=== PATIENT | male | born 1965 | race Caucasian/White ===

== ENCOUNTER → 2025-02-22 22:00 | Outpatient (REF) | payer OTHER, SELFPAY | LOC: DHSLP 22:00 | PROVIDERS: ATTENDING PHYSICIAN Internal Medicine; FAMILY PHYSICIAN Family Medicine | DX: G47.33 Obstructive sleep apnea (adult) (pediatric) (principal) | CPT/HCPCS: 95800 ==

== ENCOUNTER 2025-05-17 22:09 | Inpatient (IN) | payer OTHER, SELFPAY ==
[2025-05-17] VITALS (10 sets, daily range): BP systolic 122–142; BP diastolic 77–92; BMI 31.7
[2025-05-17 19:34] LABS: Hematocrit 47.1 % (39.0-52.0); Hemoglobin 15.9 g/dL (13.0-18.0); Mean Corp Hgb Conc. 33.8 g/dL (33.0-37.0); Mean Corpuscular Volume 88.2 fL (80.0-94.0); Nucleated Red Blood Cells % 0 % (-); Platelet Count 296 10^3/uL (130-400); Red Cell Dist. Width 13.0 % (11.5-14.5)
[2025-05-17 19:57] LABS: ALT (SGPT) 37 U/L (0-50); AST (SGOT) 31 U/L (17-59); Albumin 4.5 g/dl (3.5-5.0); Alkaline Phosphatase 99 U/L (38-126); Blood Urea Nitrogen 19 mg/dl (9-20); Calcium 9.4 mg/dl (8.4-10.2); Carbon Dioxide 26 mmol/L (22-30); Chloride 104 mmol/L (98-107); Glucose 98 mg/dl (70-99); Potassium 4.1 mmol/L (3.5-5.1); Sodium 139 mmol/L (135-145); Total Protein 7.2 g/dl (6.3-8.2); eGFR > 60.00
[2025-05-17 20:10] LABS: Troponin I 2.230 ng/ml
--- NOTE | 2025-05-17 20:24 | ED.GENMED ---
History of Present Illness
<Candi Elliott PA-C - Last Filed: 05/18/25 01:44>
General
Chief Complaint: Chest Pain
Source: patient
Exam Limitations: none
Time Seen by Provider: 05/17/25 20:23
History of Present Illness
History of Present Illness:
60-year-old male with a past medical history of t diabetes on insulin, hypertension, hyperlipidemia, who presents to emergency department today with concerns of intermittent chest pain. Currently he is chest pain-free. Patient reports that has
been going on intermittently for the past month. He reports that pain comes on with emotional stress or physical exertion. The pain is described as being similar to heartburn and relieved with belching. The patient spouse notes that he had
difficulty sleeping months ago and he obtained a sleep Pap machine. A few months back, they had a stress location and she reports that this symptom was worse since ever been, they were walking and he had to take multiple breaks due to chest pain or
shortness of breath. Spouse also mentions increased caffeine intake and increased carbonated soda intake during this period which they thought contributed to symptoms. Patient has no abdominal pain at this time. Patient used [id number]
antacids which has not helped. Patient visited his primary care physician who suggested that the symptoms could be likely gastric in origin and he gave him a referral for a engineer second assistant in [facility]. They got appointments with the
specialists in July and September respectively. He denies any swelling in his legs. He denies any recent long distance travel. He does not smoke. He reports that his cholesterol is very high but he does not take anything for it.
Past History
<Candi Elliott PA-C - Last Filed: 05/18/25 01:44>
Past History
ED Past Medical History: None
ED Past Surgical History: None
Review of Systems
<Candi Elliott PA-C - Last Filed: 05/18/25 01:44>
Review of Systems
All Other Systems: ROS reviewed and negative except as documented in HPI and ROS
Phy Exam
<Candi Elliott PA-C - Last Filed: 05/18/25 01:44>
Physical Exam
Physical Exam:
General: Patient is well appearing and in no acute distress; non-toxic
Skin: Warm and dry, no rashes or lesions
Head: Normocephalic, atraumatic
Eyes: Sclera non-icteric. EOMs intact.
Cardiac: Regular rate and rhythm, no murmurs
Peripheral Vascular: No lower extremity swelling or edema
Pulm: Normal respiratory effort, no wheezes, rales, rhonchi
Abdomen: No abdominal tenderness to palpation
Neuro: CN II-XII intact, no focal neurologic deficits.
Psychiatric: Appropriate mood and affect.
Scores
<Candi Elliott PA-C - Last Filed: 05/18/25 01:44>
Heart Score for Chest Pain Patients
STEMI patient?: No
History: Highly Suspicious
ECG: Nonspecific Repolarization
Age: >45 - <65 years
Risk Factors: 1 or 2 Risk Factors
Troponin: >/= 3 x Normal Limit
Heart Score for Chest Pain Patients: 7
Heart Score Risk: 72.7 % MACE over next 6 weeks
Course
<Cadni Elliott PA-C - Last Filed: 05/18/25 01:44>
Orders/Labs/Results
Orders:
Orders
05/17/25 18:59
Electrocardiogram (*1) Urgent
Reason for Study: Chest Pain
EKG- Treatment ONCE
05/17/25 19:23
Complete Blood Count/With Diff Urgent
Comprehensive Metabolic Panel Urgent
Troponin I Urgent
05/17/25 20:42
Aspirin 325 mg PO NOW STA
Heparin 4,000 units IV NOW STA
Nursing to Place Non Medication Order As Directed
Physician Order: PTT 6 hours after initial start of Heparin infusion
Above order entered?: Yes
05/17/25 20:45
Heparin 26253 Units/250 ml 25,000 units in 250 ml IV PER PROTOCOL
Weight to be used for heparin protocol in kilograms (kg):: 107
Protocol:: Cardiac Tx/Acute Coronary
PTT Goal Range to be used:: PTT 73 to 111 seconds
Order type:: Initial
INITIAL Infusion Dose (UNITS/KG/hr) & then follow protocol:: 15 units/kg/hr
Infusion Dose in UNITS/hr & then follow protocol (UNITS/hr):: 1,500
INFUSION RATE in mL/hr & then follow protocol (mL/hr):: 15
PTT less than or equal to 64 seconds:: Increase rate by 200 units/hr (+ 2 mL/hr)
PTT 64.1 to 72.9 seconds:: Increase rate by 100 units/hr (+ 1 mL/hr)
PTT 73 to 111 seconds:: Target Range. No change in rate.
PTT 111.1 to 130.9 seconds:: Decrease rate by 100 units/hr (- 1 mL/hr)
PTT 131 to 199.9 seconds:: HOLD for 1 hr. Then decrease rate by 200 units/hr (- 2 mL/hr)
PTT greater than or equal to 200 seconds:: HOLD for 2 hrs & Notify Provider. Then decrease by 200 units/hr (-
2 mL/hr)
Lab follow-up:: Each change, PTT q6h until 2 consecutive are therapeutic. Then PTT
daily.
05/17/25 20:53
PTT Urgent
Comment: Obtain baseline before beginning heparin infusion if not already collected
05/17/25 20:54
Metoprolol [Lopressor] 25 mg PO NOW STA
05/17/25 21:49
CARDIOLOGY CONSULT Routine
Consulting Provider: Tiago Benavides
Was physician already notified: Yes
05/17/25 21:53
Admit/Transfer Patient As Directed
Co-Sign Provider:
Level of Care: Inpatient admission
Assign to:: IVU
Physician / Group: joyce vora
Diagnosis: nstemi with st depression
Reason for Hospitalization: nstemi with st depression
Expected length of stay greater than two midnights?: Yes
ELOS- Estimated Length of Stay in days: 3
I certify the patient meets the requirements for IP care: Yes
Code Status As Directed
Resuscitation Status: Full Code
05/17/25 21:56
PRN Pain Medication Management As Directed
May give lesser potent ordered pain med per pt: Yes
preference::
Protocol:: Medication orders for pain may be administered in a
manner that supports deferring to patient preference
when the pt is:
- Requesting an ordered lesser potent pain medication.
Least to most potent pain medications are defined
as: acetaminophen < NSAID < tramadol < opioids
(morphine, oxycodone, hydromorphone).
- Requesting a lesser dose of the same medication IF
ORDERED.
- Requesting a less intrusive route of administration
if both routes are prescribed by the provider (PO <
IV).
05/17/25 22:51
Troponin I Urgent
05/17/25 23:49
Acetaminophen [Tylenol] 650 mg PO Q4HPRN PRN
05/17/25 23:49
Heparin Protocol- PTT Orders As Directed
PTT per Heparin protocol: -Obtain CBC and baseline PTT - if not already collected.
-Obtain PTT 6 hours from start of infusion. Then, every 6 hours until 2 consecutive
PTT's are therapeutic. Then, PTT Daily.
-With each rate change, obtain PTT every 6 hours until 2 consecutive PTT's are
therapeutic. Then, PTT Daily.
Activity As Directed
Activity Level: As Tolerated
Notify MD As Directed
Notify physician if: PTT is greater than or equal to 200.
Vital Signs As Directed
Frequency: Per unit guidelines
Pt Eval And Treat Routine
Activity Level: As Tolerated
05/18/25 02:30
Troponin I Urgent
05/18/25 03:12
PTT Urgent
05/18/25 Breakfast
NPO
Allow oral meds: Yes
Allow clear liquids: No
NPO with Ice Chips: No
Complete Blood Count/With Diff IN AM
Comprehensive Metabolic Panel IN AM
Hgba1c [Glycohemoglobin (HgbA1c)] IN AM
Lipid Profile [Cardiovascular Evaluation] IN AM
Magnesium IN AM
05/18/25 08:00
Cyanocobalamin [Vitamin B-12] 1 mcg PO DAILY
05/19/25 06:00
Complete Blood Count/No Diff Q2D
Comment: notify provider: Platelet count < 130,000 or decrease by 50% from baseline
Complete Blood Count/With Diff IN AM
Comprehensive Metabolic Panel IN AM
05/20/25 06:00
Complete Blood Count/With Diff IN AM
Comprehensive Metabolic Panel IN AM
05/21/25 06:00
Complete Blood Count/No Diff Q2D
Comment: notify provider: Platelet count < 130,000 or decrease by 50% from baseline
05/23/25 06:00
Complete Blood Count/No Diff Q2D
Comment: notify provider: Platelet count < 130,000 or decrease by 50% from baseline
05/25/25 06:00
Complete Blood Count/No Diff Q2D
Comment: notify provider: Platelet count < 130,000 or decrease by 50% from baseline
05/27/25 06:00
Complete Blood Count/No Diff Q2D
Comment: notify provider: Platelet count < 130,000 or decrease by 50% from baseline
05/29/25 06:00
Complete Blood Count/No Diff Q2D
Comment: notify provider: Platelet count < 130,000 or decrease by 50% from baseline
05/31/25 06:00
Complete Blood Count/No Diff Q2D
Comment: notify provider: Platelet count < 130,000 or decrease by 50% from baseline
06/02/25 06:00
Complete Blood Count/No Diff Q2D
Comment: notify provider: Platelet count < 130,000 or decrease by 50% from baseline
Abnormal Lab Results
05/17/25
19:23
Troponin I 2.230 H* ng/ml
05/17/25 19:23
05/17/25 19:23
Vital Signs
Initial and Last Documented VS:
Initial Vital Signs
Temp Pulse Resp BP Pulse Ox
97.8 F 86 18 122/90 98
05/17/25 19:09 05/17/25 19:09 05/17/25 19:09 05/17/25 19:09 05/17/25 19:09
Last Documented Vital Signs
Temp Pulse Resp BP Pulse Ox
97.6 F 74 16 142/86 99
05/17/25 23:42 05/17/25 23:42 05/17/25 23:42 05/17/25 23:42 05/17/25 23:42
Bridgetlt;Javi Chanel, DO - Last Filed: 05/17/25 21:29>
Orders/Labs/Results
Orders:
Orders
05/17/25 18:59
Electrocardiogram (*1) Urgent
Reason for Study: Chest Pain
EKG- Treatment ONCE
05/17/25 19:23
Complete Blood Count/With Diff Urgent
Comprehensive Metabolic Panel Urgent
Troponin I Urgent
05/17/25 20:42
Aspirin 325 mg PO NOW STA
Heparin 4,000 units IV NOW STA
Nursing to Place Non Medication Order As Directed
Physician Order: PTT 6 hours after initial start of Heparin infusion
Above order entered?: Yes
05/17/25 20:45
Heparin [id number] Units/250 ml 25,000 units in 250 ml IV PER PROTOCOL
Weight to be used for heparin protocol in kilograms (kg):: 107
Protocol:: Cardiac Tx/Acute Coronary
PTT Goal Range to be used:: PTT 73 to 111 seconds
Order type:: Initial
INITIAL Infusion Dose (UNITS/KG/hr) & then follow protocol:: 15 units/kg/hr
Infusion Dose in UNITS/hr & then follow protocol (UNITS/hr):: 1,500
INFUSION RATE in mL/hr & then follow protocol (mL/hr):: 15
PTT less than or equal to 64 seconds:: Increase rate by 200 units/hr (+ 2 mL/hr)
PTT 64.1 to 72.9 seconds:: Increase rate by 100 units/hr (+ 1 mL/hr)
PTT 73 to 111 seconds:: Target Range. No change in rate.
PTT 111.1 to 130.9 seconds:: Decrease rate by 100 units/hr (- 1 mL/hr)
PTT 131 to 199.9 seconds:: HOLD for 1 hr. Then decrease rate by 200 units/hr (- 2 mL/hr)
PTT greater than or equal to 200 seconds:: HOLD for 2 hrs & Notify Provider. Then decrease by 200 units/hr (-
2 mL/hr)
Lab follow-up:: Each change, PTT q6h until 2 consecutive are therapeutic. Then PTT
daily.
05/17/25 20:53
PTT Urgent
Comment: Obtain baseline before beginning heparin infusion if not already collected
05/17/25 20:54
Metoprolol [Lopressor] 25 mg PO NOW STA
05/17/25 21:49
CARDIOLOGY CONSULT Routine
Consulting Provider: Tiago Benavides
Was physician already notified: Yes
05/17/25 21:53
Admit/Transfer Patient As Directed
Co-Sign Provider:
Level of Care: Inpatient admission
Assign to:: IVU
Physician / Group: joyce vora
Diagnosis: nstemi with st depression
Reason for Hospitalization: nstemi with st depression
Expected length of stay greater than two midnights?: Yes
ELOS- Estimated Length of Stay in days: 3
I certify the patient meets the requirements for IP care: Yes
Code Status As Directed
Resuscitation Status: Full Code
05/17/25 21:56
PRN Pain Medication Management As Directed
May give lesser potent ordered pain med per pt: Yes
preference::
Protocol:: Medication orders for pain may be administered in a
manner that supports deferring to patient preference
when the pt is:
- Requesting an ordered lesser potent pain medication.
Least to most potent pain medications are defined
as: acetaminophen < NSAID < tramadol < opioids
(morphine, oxycodone, hydromorphone).
- Requesting a lesser dose of the same medication IF
ORDERED.
- Requesting a less intrusive route of administration
if both routes are prescribed by the provider (PO <
IV).
05/17/25 22:51
Troponin I Urgent
05/17/25 23:49
Acetaminophen [Tylenol] 650 mg PO Q4HPRN PRN
05/17/25 23:49
Heparin Protocol- PTT Orders As Directed
PTT per Heparin protocol: -Obtain CBC and baseline PTT - if not already collected.
-Obtain PTT 6 hours from start of infusion. Then, every 6 hours until 2 consecutive
PTT's are therapeutic. Then, PTT Daily.
-With each rate change, obtain PTT every 6 hours until 2 consecutive PTT's are
therapeutic. Then, PTT Daily.
Activity As Directed
Activity Level: As Tolerated
Notify MD As Directed
Notify physician if: PTT is greater than or equal to 200.
Vital Signs As Directed
Frequency: Per unit guidelines
Pt Eval And Treat Routine
Activity Level: As Tolerated
05/18/25 02:30
Troponin I Urgent
05/18/25 03:12
PTT Urgent
05/18/25 Breakfast
NPO
Allow oral meds: Yes
Allow clear liquids: No
NPO with Ice Chips: No
Complete Blood Count/With Diff IN AM
Comprehensive Metabolic Panel IN AM
Hgba1c [Glycohemoglobin (HgbA1c)] IN AM
Lipid Profile [Cardiovascular Evaluation] IN AM
Magnesium IN AM
05/18/25 08:00
Cyanocobalamin [Vitamin B-12] 1 mcg PO DAILY
05/19/25 06:00
Complete Blood Count/No Diff Q2D
Comment: notify provider: Platelet count < 130,000 or decrease by 50% from baseline
Complete Blood Count/With Diff IN AM
Comprehensive Metabolic Panel IN AM
05/20/25 06:00
Complete Blood Count/With Diff IN AM
Comprehensive Metabolic Panel IN AM
05/21/25 06:00
Complete Blood Count/No Diff Q2D
Comment: notify provider: Platelet count < 130,000 or decrease by 50% from baseline
05/23/25 06:00
Complete Blood Count/No Diff Q2D
Comment: notify provider: Platelet count < 130,000 or decrease by 50% from baseline
05/25/25 06:00
Complete Blood Count/No Diff Q2D
Comment: notify provider: Platelet count < 130,000 or decrease by 50% from baseline
05/27/25 06:00
Complete Blood Count/No Diff Q2D
Comment: notify provider: Platelet count < 130,000 or decrease by 50% from baseline
05/29/25 06:00
Complete Blood Count/No Diff Q2D
Comment: notify provider: Platelet count < 130,000 or decrease by 50% from baseline
05/31/25 06:00
Complete Blood Count/No Diff Q2D
Comment: notify provider: Platelet count < 130,000 or decrease by 50% from baseline
06/02/25 06:00
Complete Blood Count/No Diff Q2D
Comment: notify provider: Platelet count < 130,000 or decrease by 50% from baseline
Abnormal Lab Results
05/17/25
19:23
Troponin I 2.230 H* ng/ml
05/17/25 19:23
05/17/25 19:23
Vital Signs
Initial and Last Documented VS:
Initial Vital Signs
Temp Pulse Resp BP Pulse Ox
97.8 F 86 18 122/90 98
05/17/25 19:09 05/17/25 19:09 05/17/25 19:09 05/17/25 19:09 05/17/25 19:09
Last Documented Vital Signs
Temp Pulse Resp BP Pulse Ox
97.6 F 74 16 142/86 99
05/17/25 23:42 05/17/25 23:42 05/17/25 23:42 05/17/25 23:42 05/17/25 23:42
Bridgetlt;Candi Elliott PA-C - Last Filed: 05/18/25 01:44>
MDM/Problems Addressed
Differential Diagnosis Includes:
Differentials include GERD, angina, NSTEMI, STEMI, aortic stenosis, PE, costochondritis, esophagitis, pericarditis
MDM/Problems Addressed:
60-year-old male with history of diabetes on insulin, hyperlipidemia, hypothyroidism comes in with intermittent chest pain for the past month. It comes and goes with emotional stress and physical exertion. Currently he is pain-free and
asymptomatic. He has never seen a engineer second assistant before he is not take anything for his cholesterol he is on no blood thinners. Troponin is 2.230. ECG shows nonspecific ST changes may have some depression anterior laterally. He was given an aspirin
as well as metoprolol. Cardiology notified immediately. Heparin drip initiated. Dr. Prakash aware.
Chronic conditions affecting care:
GERD, hyperlipidemia, hypertension, diabetes
<Candi Elliott PA-C - Last Filed: 05/18/25 01:44>
*Pulse Oximetry
SaO2: 98
Patient hypoxic: no
*EKG
Interpreted by ED Provider?: Yes
EKG Intrepretation Date: 05/17/25
Interpretation: abnormal
Comparison EKG: changes noted (possible new ST depressions in V4-V6)
Heart Rate: 79
Rate: normal
Rhythm: sinus
[place]: normal axis
Interval: normal interval
Ischemia: ST depression
*Critical Care Note
comment:
Critical care statement: A total of 30 minutes of critical care time was provided for this patient. This includes management of unstable vital signs, evaluation of the patient at bedside, frequent reassessment, discussion with
consultants/hospitalist, and review of pertinent medical records. This time was separate from time utilized to perform any aforementioned documented procedures.
Data Reviewed
Review of Other/Old Records Reveals: Records (Reviewed H&P from 11/14/2022 patient seen and for lumbar herniated disks was scheduled to have surgery with Dr. Rader) and Discharge Summary (No discharge summary in [facility] to review)
Source: patient and records
<Javi Chanel DO - Last Filed: 05/17/25 21:29>
*Critical Care Note
Total Time (30-74mins, 75-104mins- exclusive of procedures): 30
ED Attending Note
<Candi Elliott PA-C - Last Filed: 05/18/25 01:44>
-
Portions of this chart may have been created with voice recognition software.� Occasional wrong word or��sound alike� substitutions may have occurred due to the inherent limitations of voice recognition software.
<Javi Chanel, DO - Last Filed: 05/17/25 21:29>
ED Attending Note
Patient seen and examined by attending physician: Yes
I performed the substantive portion of visit, reviewed & personally made and approve the management plan that is documented in note by myself or ANGELICA.: Yes
ED Attending Note:
Seen with PA examined independently 60-year-old male referred from urgent care for an abnormal EKG heavy 1 month of exertional chest pain, with belching, he is diabetic he uses medical marijuana to sleep chest pain-free now, yesterday was shoveling
in his yard had chest pain not much chest pain today again he is chest pain-free now, sees Dr. Torres from [facility], he has she has an appointment to see them in the future but not for a few months
Discharge Plan
Departure
Patient Disposition: Admit
Date of Disposition: 05/17/25
Time of Disposition: 20:52
Admit to: Med/Surg
Presentation/result/management discussed w/ accepting MD/DO: Hospitalist
Patient with high blood pressure during this ER visit?: No
Condition: Fair
Discharge Problem:
Non-ST elevation [place] (NSTEMI)
Interventions
Interventions:
*Risk Screen - Suicide Last Done: 05/17/25 19:13
*General Assessment Last Done: 05/17/25 19:13
*Neglect/Abuse Screening Last Done: 05/17/25 19:13
*ED- Fall Risk Assessment Last Done: 05/17/25 21:04
*ED COVID-19 Vaccine History Last Done: 05/17/25 21:04
*Nursing Disposition Last Done: 05/17/25 23:30
ED- Cardiac Assessment Last Done: 05/17/25 21:05
Discharge Date and Time
Discharge Date/Time: 05/17/25 23:44
[2025-05-17] MEDS: ASPIRIN 325 MG PO (21:02)
[2025-05-17] MEDS: LOPRESSOR 25 MG PO (21:03)
[2025-05-17] MEDS: HEPARIN 4000 UNITS IV (21:11)
[2025-05-17 21:12] LABS: APTT 31.9 Sec (23.4-35.0)
[2025-05-17] MEDS: HEPARIN 25000 UNITS/250 ML IV (21:12)
--- NOTE | 2025-05-17 21:49 | HPS.HSE ---
Addendum entered and electronically signed by Gilberto Nugent DO 05/17/25 23:31:
Patient seen and examined independently. Agree with findings and plan as set forth by JOSSELYN Hickey.
Patient is a 60y M with PMH significant for DM-II and hypothyroidism who presents to ED complaining of intermittent chest discomfort. Patient states that symptoms have been present for about 1 month. He describes burning discomfort that has
occurred in periods of physical or emotional stress. He typically takes TUMS or belches with improvement in his symptoms. Patient denies any associated SOB, diaphoresis, etc. He notes that this symptoms have persisted and this prompted him to
present to the ED for evaluation.
He denies any prior h/o similar symptoms. No known history of heart disease.
He states that she stopped taking his statin about 2 years ago as it caused his sugars to be more elevated.
Ass:
NSTEMI
DM-II
Hypothyroidism
GERD
ROBBY on CPAP
R Thumb Tendinitis
Testosterone Deficiency
Obesity due to excess calories
Plan:
Admit for further evaluation and treatment.
Initial troponin elevated at 2.23. EKG with nonspecific T wave changes.
IV heparin, ASA daily, etc.
Cardiology consulted for additional recommendations / possible ischemic evaluation.
Continue basal : bolus insulin regimen. Update A1C.
Hold tadalafil. Patient states that he last took this 2 days ago.
Original Note:
Family Physician
-
Family Physician: Jaspal Jimenez
Chief Complaint
-
Intermittent epigastric pain over the past several weeks with belching irritated with caffeine, soda and fatty meals
History of Present Illness
60-year-old male complaining of intermittent epigastric pain occasionally radiates up to his chest over the past few weeks relieved with belching he had contributed to his heartburn. He has also had increased caffeine intake and carbonated soda he
was contributing to worsening GERD symptoms. He also reports eating a fatty Atkins meal yesterday causing what he felt his reflux was worse. He has had no relief with dxtr-zlm-[id number] antacids and daily Prilosec OTC. He also reports recent
diagnosis of sleep apnea has a nasal pillow machine however this has been exacerbating his pain so he stopped using it over the past 2 weeks. He denies fever, chills, palpitations, diaphoresis, vomiting, diarrhea, urinary symptoms.
He has past medical history DM 2 with insulin resistance, GERD, hypothyroidism, HLD, ex-smoker, chronic back pain/herniated disc status post repair times 11/02/2009, testosterone deficiency, erectile dysfunction class I obesity, sleep apnea uses
nasal CPAP recent diagnosis
Medical History
Past Medical History
Past Medical History: Reports Other
Additional Past Medical History:
DM 2
hypothyroidism
HLD
ex-smoker
chronic back pain/herniated disc status post repair times 11/02/2009
testosterone deficiency
erectile dysfunction
GERD
Insomnia
Class I obesity
Past Surgical History: Reports Other
Additional Past Surgical History:
Herniated disc repair times 11/02/2009
Hernia repair 1987
Social History
Tobacco: Non-smoker
Alcohol: None
Drug: None
Personal:
Living: With Family
Employment: Employed
Family History
Family History: Not pertinent
Allergies / Home Medications
Allergies reflects when Allergies were last updated in [employer].
Home Medications with original date entered in [employer]
Allergy/Medication List:
Allergies
Allergy/AdvReac Type Severity Reaction Status Date / Time
morphine Allergy Nausea Verified 05/17/25 20:55
Sulfa (Sulfonamide Allergy Rash Verified 05/17/25 20:55
Antibiotics)
Home Medications
levothyroxine 137 mcg tablet (Synthroid) 175 mcg PO DAILY 10/11/10
insulin aspart U-100 100 unit/mL (3 mL) subcutaneous pen (Novolog FlexPen U-100 Insulin aspart) 30 - 50 unit SC .DAILYATBREAKFAST 11/09/22
insulin glargine 100 unit/mL subcutaneous solution (Lantus U-100 Insulin) 40 unit SC HS 11/09/22
Medical Marijuana 1 drp PO HS 11/13/22
ascorbic acid (vitamin C) 500 mg tablet 500 mg PO DAILY 11/13/22
cyanocobalamin (vitamin B-12) 1 tab PO DAILY 11/13/22
magnesium 1 tab PO DAILY 11/13/22
multivitamin 1 tab PO DAILY 11/13/22
Prilosec OTC 20 mg PO DAILY 05/17/25
tadalafil 10 mg tablet 10 mg PO DAILY 05/17/25
testosterone 30 mg/actuation (1.5 mL) transderm solution metered pump 1 pump topical DAILY 05/17/25
Review of Systems
-
History Source: Patient and Family ( at bedside)
A 12 point ROS was completed and negative except as noted: Yes
Constitutional: Denies Fever or Fatigue
EENT: Denies Sore Throat or Runny Nose
Respiratory: Denies Cough or Trouble Breathing
Cardiac: Reports Chest Pain (Epigastric to); Denies Diaphoresis, Palpitations or Syncope
Abdomen/GI: Reports Nausea (From acid reflux); Denies Abdominal Pain, Vomiting or Diarrhea
: Denies Dysuria, Frequency, Flank Pain, Incontinence or Difficulty Voiding
Musculoskeletal: Reports Other (Current right hand tenosynovitis over thumb patient wearing Velcro brace); Denies Joint Pain or Edema
Skin: Denies Itching or Rash
Neurological: Denies Dizzy, Headache or Weakness
Endocrine: Reports No Symptoms
Hematologic/Lymphatic: Reports No Symptoms
Psych: Reports Calm
Physical Exam
Vital Signs
Vital Signs
Temp Pulse Resp BP Pulse Ox
97.8 F 81 18 133/92 96
05/17/25 19:09 05/17/25 21:03 05/17/25 21:00 05/17/25 21:03 05/17/25 21:00
Physical Exam
General: Comfortable and Conversant; No Fever or Chills
HEENT: NormoCephalic, Anicteric, Moist mucous membranes, Atraumatic, PERRLA, [place] Conjunctivae and No Ptosis
Respiratory: Clear; No Wheezes, Rales or Rhonchi
Cardiac: S1/S2 and Regular Rhythm; No Murmur, Rub, Gallop or Peripheral Edema
Breast: Deferred by me
GI: Soft, Non Tender, Non Distended, Normal Bowel Sounds and No Hepatosplenomegaly
Rectal: Deferred by Provider
Genito-urinary: Deferred by me
Musculoskeletal: No Clubbing, No Cyanosis, No Edema and Other (Current right hand tenosynovitis over thumb patient wearing Velcro brace)
Skin: Warm and Dry; No Rash or Jaundice
Neuro: AO x 3, No Motor Deficits, Nonfocal/grossly intact, Cranial Nerves Intact and No Sensory Deficits; No Slurred Speech, Facial Droop, Tremors or Sedated
Psych: Calm
Laboratory Results
-
05/17/25 19:23
05/17/25 19:23
Laboratory Results
APTT 31.9 Sec (23.4-35.0) 05/17/25 20:53
Total Bilirubin 0.4 mg/dl (0.2-1.3) 05/17/25 19:23
AST 31 U/L (17-59) 05/17/25 19:23
ALT 37 U/L (0-50) 05/17/25 19:23
Alkaline Phosphatase 99 U/L (38-126) 05/17/25 19:23
Troponin I 2.230 ng/ml H* 05/17/25 19:23
Data Reviewed
-
Lab Data: Labs Reviewed by me
Impression/Plan
-
Impression/plan:
Admit to IVU
#NSTEMI
#ST depression inferior, anterior leads, T wave flattening inferior leads
Troponin 2.230 will trend
Aspirin 324 mg given in ER
-IV heparin drip
-Consult [facility] cardiology
- N.p.o. for cath in a.m.
-Check lipid profile, HgbA1c
#Current right hand tenosynovitis over thumb patient wearing Velcro brace
Recommended following up with Ortho consider steroid injection
#DM 2 with insulin resistance
Blood sugar 98, check HgbA1c
Hold Lantus 40 units SQ at bedtime since patient currently n.p.o.
Patient on NovoLog FlexPen takes 30 to 50 units with meals
Once diet resumed will need insulin resumed
#Hypothyroidism
Continue Synthroid 175 mcg p.o. daily
#GERD
Continue Prilosec 20 mg daily
#Sleep apnea
Nasal CPAP
#HLD
Check lipid profile
# Ex-smoker
#chronic back pain/herniated disc status post repair times 11/02/2009
#Testosterone deficiency
#Erectile dysfunction
- Hold tadalafil 10 mg daily last use was 2 days ago 05/15/2025
#Class I obesity�BMI 32
Weight loss recommended affects all aspects of care
#Insomnia
Patient uses medical marijuana drops made aware we will not dispense here
Uses alternative 's Ativan 0.5 mg is asking for dose tonight
DVT prophylaxis
IV heparin drip
Full code
[2025-05-17] MEDS: ATIVAN 0.5 MG PO (22:57)
[2025-05-17 23:36] LABS: Troponin I 2.100 ng/ml
--- NOTE | 2025-05-17 23:52 | PTCARENOTE ---
received patient from the ED. AAOx3. at the bedside. SR on tele 70s. bp stable. denies any chest pain at this time. denies sob. steady on his feet oob. heparin gtt infusing per protocol. reviewed plan of care with patient and verbalized
understanding. NPO at midnight for a cardiac cath. answered all questions. call astorga within reach. educated to call with any cp overnight.
[2025-05-18] VITALS (10 sets, daily range): BP systolic 119–136; BP diastolic 74–93
[2025-05-18 00:22] LABS: Glucose - Point of Care 111 mg/dl (70-99)
[2025-05-18 03:50] LABS: Hematocrit 42.7 % (39.0-52.0); Hemoglobin 14.7 g/dL (13.0-18.0); Mean Corp Hgb Conc. 34.4 g/dL (33.0-37.0); Mean Corpuscular Volume 86.3 fL (80.0-94.0); Nucleated Red Blood Cells % 0 % (-); Platelet Count 271 10^3/uL (130-400); Red Cell Dist. Width 12.9 % (11.5-14.5)
[2025-05-18 04:01] LABS: APTT 74.4 Sec (23.4-35.0)
[2025-05-18 04:15] LABS: ALT (SGPT) 34 U/L (0-50); AST (SGOT) 28 U/L (17-59); Albumin 3.8 g/dl (3.5-5.0); Alkaline Phosphatase 108 U/L (38-126); Blood Urea Nitrogen 22 mg/dl (9-20); Calcium 8.5 mg/dl (8.4-10.2); Carbon Dioxide 24 mmol/L (22-30); Chloride 108 mmol/L (98-107); Estimated Creatinine Clearance 88 ml/min; Glucose 137 mg/dl (70-99); HDL Cholesterol 36 mg/dl; LDL Cholesterol, Calculated 177 mg/dl; Magnesium 2.2 mg/dl (1.6-2.3); Potassium 4.4 mmol/L (3.5-5.1); Sodium 137 mmol/L (135-145); Total Protein 6.2 g/dl (6.3-8.2); Very Low Density Lipoprotein 48 mg/dl (0-30); eGFR > 60.00
[2025-05-18 04:32] LABS: Troponin I 2.110 ng/ml
[2025-05-18 05:07] LABS: Hepatitis C Antibody Negative (Negative)
[2025-05-18] MEDS: ASPIR LOW (ENTERIC COATED) 81 MG PO (08:20)
[2025-05-18] MEDS: PROTONIX 40 MG PO (08:20)
--- NOTE | 2025-05-18 08:26 | W.PN.HOSP.TC ---
Today's Communication/Plan
-
N.p.o.
Cardiology consult
Add NovoLog sliding scale
Lantus 10 units at bedtime
Assessment / Plan
Assessment / Plan
Gen-AAOx3, NAD
HEENT-NC, AT, anicteric, clear oral mm
Neck-supple
CV-reg, no M, +S1/S2
Lungs-clear B/L
Abd-soft, NT, ND
Ext-no edema
Musculoskeletal-no cyanosis, clubbing
Skin-warm and dry
Neuro-grossly non-focal
Psych-calm, cooperative
NSTEMI -symptoms resolved. On IV heparin. N.p.o., awaiting catheterization. Cardiology consulted. Not on aspirin prior to admission. Denies cardiac history.
EKG shows normal sinus rhythm, age-indeterminate inferior and anterior infarcts.
He has had intermittent epigastric chest pressure and burning chest pain for the past month. Reportedly had negative stress test 10 years ago, never had catheterization.
Troponin trending down. Initial troponin 2.2.
Hyperlipidemia -states he is not on a statin. Reports that rosuvastatin caused worsening hyperglycemia.
LDL 177, HDL 36, triglycerides 243, total cholesterol 261.
Can consider alternative lipid-lowering agent.
DM 2 without hyperglycemia -hemoglobin A1c pending. At home he is on Solostar 40 units in the evening, NovoLog 30 to 40 units with breakfast only. Does not use NovoLog with other meals. Follows with endocrinology, Dr. Villatoro. He does have a
Dexcom with mostly good readings. States most recent hemoglobin A1c was 7.5%.
Add NovoLog low resistance scale, Lantus 10 units at bedtime.
Hypothyroidism -on levothyroxine.
GERD
ROBBY -on CPAP.
Right thumb tendinitis
Testosterone deficiency
History of herniated lumbar disks
Obesity due to excess calories
Full code
updated at the bedside.
Anticipated Discharge: > 48 hours
Subjective/Interval History
-
Date of Service: May 18, 2025
Patient seen and examined. No complaints. Denies further chest pain.
Objective Data
-
Labs:
Laboratory Results
05/17/25 05/18/25 05/18/25
20:53 03:22 09:30
WBC 7.5
Hgb 14.7
Hct 42.7
Plt Count 271
APTT 31.9 74.4 H Pending
Sodium 137
Potassium 4.4
Chloride 108 H
Carbon Dioxide 24
BUN 22 H
Creatinine 1.1
Glucose 137 H
Calcium 8.5
Total Bilirubin 0.4
AST 28
ALT 34
Alkaline Phosphatase 108
Vital Signs:
Vital Signs
Temp Pulse Resp BP Pulse Ox
97.8 F 75 14 125/80 95
05/18/25 07:45 05/18/25 07:45 05/18/25 07:45 05/18/25 03:22 05/18/25 07:45
Review of Systems
-
History Source: Patient
All other systems: Reviewed and negative
--- NOTE | 2025-05-18 08:43 | CON.CAR ---
Addendum entered and electronically signed by Baljinder Marcus MD 05/18/25 12:35:
60-year-old man admitted with chest pain.
PMH/PSH: Diabetic, hypothyroid, sleep apnea, obesity laminectomy x 2, former alcohol use
Current Meds: IV heparin,B12, pantoprazole, aspirin 81 mg a day, metoprolol ER 12.5 daily, atorvastatin 80 a day, insulin
125/80, pulse 75, afebrile, head neck exam unremarkable, lungs are clear, regular rate and rhythm, no obvious murmurs, abdomen benign extremities without clubbing cyanosis or edema
ECG sinus rhythm, possible septal HI, inferior HI, nonspecific ST-T change, anterior Q is new
Normal CBC, troponin is 2.1, potassium is 4.4 BUN and creatinine are 22 and 1.1
Impression:
Non-ST segment elevation HI
Type 2 diabetes
Obesity
Obstructive sleep apnea
Laminectomy
Presumed hyperlipidemia
Hypothyroidism
Plan:
He presents with a non-ST segment elevation HI.
By EKG he may have had prior pqw-xa-dvreenet MIs. Echo is currently pending.
Currently he seems stable.
Plan is to proceed with cardiac catheterization to determine best management strategy.
Original Note:
Consultation
Consultation Request
Date/Time Consultation Performed: 05/18/25
Requesting Provider: Dr. Pat
Performing Provider: Sulma Malin PA-C for Dr. Patel
Reason for Consultation: NSTEMI
Medical History
-
Chief Complaint: CP
History of Present Illness:
Patient is a 60 yo M with PMH of DM2, hypothyroidism, obesity, ROBBY who presented to [facility] due to 1 month of epigastric pain. He reports noting with activity or stressful situation he was getting epigastric discomfort and if he continued to do
activity, he would then get burning behind his sternum. He reports with stopping and resting for about 10 minutes, the pain would improve and then he would belch forcefully and his pain would be relieved. He reports this has occurred with less and
less activity since it started, now to the point where walking in his kitchen can bring on symptoms. He went to see his PCP for this last week and it was felt to be GI in etiology. He called cardiology office however was not given appt until
July. He went to urgent care yesterday and based on symptoms and EKG patient was referred to ER. Trop 2. Cardiology consulted for evaluation. Presently CP free.
PMH:
DM2
Hypothyroidism
Obesity
ROBBY
Laminectomy x2
Remote former smoker
Past Medical History
Past Medical History: Other (in HPI)
Social History
Tobacco: Former Smoker (remote)
Alcohol: Former (quit 11/2024)
Drug: Marijuana (medical for sleep)
Personal:
Living: With Family
Employment: Retired
Family History
Family History: Diabetes
Allergies / Home Medications
Allergy/AdvReac Type Severity Reaction Status Date / Time
morphine Allergy Nausea Verified 05/17/25 20:55
Sulfa (Sulfonamide Allergy Rash Verified 05/17/25 20:55
Antibiotics)
�Medication �Instructions �Recorded �Confirmed �Type
levothyroxine 137 mcg tablet 175 mcg PO DAILY 10/11/10 05/17/25 History
(Synthroid)
insulin aspart U-100 100 unit/mL 30 - 50 unit SC .DAILYATBREAKFAST 11/09/22 05/17/25 History
(3 mL) subcutaneous pen (Novolog
FlexPen U-100 Insulin aspart)
insulin glargine 100 unit/mL 40 unit SC HS 11/09/22 05/17/25 History
subcutaneous solution (Lantus
U-100 Insulin)
Medical Marijuana 1 drp PO HS 11/13/22 05/17/25 History
ascorbic acid (vitamin C) 500 mg 500 mg PO DAILY 11/13/22 05/17/25 History
tablet
cyanocobalamin (vitamin B-12) 1 tab PO DAILY 11/13/22 05/17/25 History
magnesium 1 tab PO DAILY 11/13/22 05/17/25 History
multivitamin 1 tab PO DAILY 11/13/22 05/17/25 History
Prilosec OTC 20 mg PO DAILY 05/17/25 05/17/25 History
tadalafil 10 mg tablet 10 mg PO DAILY 05/17/25 05/17/25 History
testosterone 30 mg/actuation (1.5 1 pump topical DAILY 05/17/25 05/17/25 History
mL) transderm solution metered pump
Review of Systems
-
History Source: Patient and Family
All other systems: Negative unless noted
Physical Exam
Vital Signs
Temp Pulse Resp BP Pulse Ox
97.8 F 75 14 125/80 95
05/18/25 07:45 05/18/25 07:45 05/18/25 07:45 05/18/25 03:22 05/18/25 07:45
Lab Results
05/18/25 03:22
05/18/25 03:22
Troponin I 2.110 ng/ml H* 05/18/25 03:22
Physical Exam
General: No Apparent Distress and Comfortable
HEENT: Normocephalic, Anicteric and Moist Mucous Membranes
Respiratory: Clear and Non Labored Respirations
Cardiac: S1/S2 and Regular Rhythm
GI: Soft, Non Tender, Non Distended and Normal Bowel Sounds
Musculoskeletal: No Clubbing, No Cyanosis and No Edema
Skin: Warm and Dry
Neuro: AO x 3
Impression / Plan
-
Primary Supervisor Grower: none prior to admission
Assessment:
Presentation with epigastric pain with exertion
NSTEMI, trop 2
DM2
Hypothyroidism
Obesity
ROBBY
Laminectomy x2
Remote former smoker
Plan:
-Patient presents with episodes of progressive epigastric pain with exertion
-EKG SR with evidence of inferior and anterior Q waves and lateral T wave depression
-ruled in for NSTEMI with peak trop 2
-continue asa, IV heparin
-NPO for cardiac catheterization today. discussed procedure in detail with patient and at bedside and they are agreeable to proceed.
-check echo
-LDL 177. He reports a history of significantly worsened blood sugars while on statin therapy in the past. We discussed retrialing statin therapy in setting of HI and he is agreeable. will need to follow blood sugars closely. would consider
diabetic MACHINE FITTER consult. hgbA1c pending
-will add low dose BB as BP stable
-d/w nursing
-d/w patient and at bedside
Data Reviewed
-
EKG: Tracing Personally Visualized and interpreted
Labs: Labs Reviewed by me
Old Records: Reviewed
[2025-05-18] MEDS: TOPROL XL 12.5 MG PO (09:37)
[2025-05-18] MEDS: SYNTHROID PO (09:39)
[2025-05-18 09:49] LABS: Glycohemoglobin (HgbA1c) 7.4 % (4.0-5.6)
[2025-05-18 10:03] LABS: APTT 74.4 Sec (23.4-35.0)
[2025-05-18 12:11] LABS: Glucose - Point of Care 153 mg/dl (70-99)
--- NOTE | 2025-05-18 12:20 | PTOTSP ---
The patient is independent with ambulation and elevations, no mobility issues identified. Patient mentioned ongoing tendonitis in thumb - encouraged him to follow up with PCP and go for Outpatient PT or OT for hand therapy. No PT needs at this time,
will sign off.
[2025-05-18 15:05] LABS: Glucose - Point of Care 149 mg/dl (70-99)
--- NOTE | 2025-05-18 15:19 | CONSULT.CT ---
Addendum entered and electronically signed by Javy Burger MD 05/19/25 09:35:
Patient requested we come back to go over details tomorrow with his present. Understands will likely have surgery on Wednesday with me and Dr. Mazariegos.
Original Note:
Consultation
-
Date/Time Consultation Requested: 05/18/25
Date/Time Consultation Performed: 05/18/25
Requesting Provider: Baljinder Patel MD
Performing Provider: Madhavi AROCS for Javy Burger MD
Reason for Consultation: CABG evaluation
Patient History
Physicians
Family Physician: Jaspal Jimenez
Outpatient Farm Appraiser: Baljinder Patel
Inpatient Farm Appraiser: [facility]
History of Present Illness
60-year-old right hand dominant male with a past medical history of diabetes, hypertension, hyperlipidemia, hypothyroidism, who was admitted to [facility] ER on 05/17/25 with approximately 1 month history of intermittent chest pain precipitated by
emotional stress or physical exertion. The pain is described as being similar to heartburn and relieved with belching. patient reports minimal relief with Prilosec. Patient ruled in for NSTEMI with troponin of 2.2. He underwent left heart
catheterization on 05/18/2025 which reported triple-vessel coronary disease. CT surgery was consulted for CABG evaluation. He is currently pain-free on IV heparin.
pertinent negatives: Denies CVA/TIA, asthma/COPD, dysphagia, hepatitis, chest radiation, prior thoracic surgery, DVT/PE, vein stripping
Past Medical History
Past Medical History: Other
Hypertension
Hyperlipidemia
Hypothyroidism
Type 2 diabetes (x 20 yrs) on insulin
Obstructive sleep apnea on CPAP
Class I obesity (BMI 31.6)
Lumbar disc herniation
Testosterone deficiency
Past Surgical History
Past Surgical History: Other
Tonsillectomy
Lumbar laminectomy 2010 and 2022
Left inguinal hernia repair 1997
Social History
Alcohol: Occasional
Drug: None
Tobacco: Former Smoker (quit 30 yrs ago)
Personal:
Living: With Spouse
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
Allergies
Allergy/AdvReac Type Severity Reaction Status Date / Time
morphine Allergy Nausea Verified 05/17/25 20:55
Sulfa (Sulfonamide Allergy Rash Verified 05/17/25 20:55
Antibiotics)
Home Medications
�Medication �Instructions �Recorded �Confirmed �Type
levothyroxine 137 mcg tablet 175 mcg PO DAILY Thyroid 10/11/10 05/17/25 History
(Synthroid)
insulin aspart U-100 100 unit/mL 30 - 50 unit SC .DAILYATBREAKFAST 11/09/22 05/17/25 History
(3 mL) subcutaneous pen (Novolog Diabetes
FlexPen U-100 Insulin aspart)
insulin glargine 100 unit/mL 40 unit SC HS Diabetes 11/09/22 05/17/25 History
subcutaneous solution (Lantus
U-100 Insulin)
Medical Marijuana 1 drp PO HS Pain 11/13/22 05/17/25 History
ascorbic acid (vitamin C) 500 mg 500 mg PO DAILY Supplement 11/13/22 05/17/25 History
tablet
cyanocobalamin (vitamin B-12) 1 tab PO DAILY 11/13/22 05/17/25 History
magnesium 1 tab PO DAILY Supplement 11/13/22 05/17/25 History
multivitamin 1 tab PO DAILY Supplement 11/13/22 05/17/25 History
Prilosec OTC 20 mg PO DAILY Gastrointestinal 05/17/25 05/17/25 History
Issue
tadalafil 10 mg tablet 10 mg PO DAILY Urinary Issue 05/17/25 05/17/25 History
testosterone 30 mg/actuation (1.5 1 pump topical DAILY Hormonal Agent 05/17/25 05/17/25 History
mL) transderm solution metered pump
Review of Systems
-
History Source: Patient
General: Reports No Symptoms
HEENT: Reports No Symptoms
Respiratory: Reports No Symptoms
Cardiac: Reports No Symptoms
Abdomen/GI: Reports No Symptoms
: Reports No Symptoms
Musculoskeletal: Reports No Symptoms
Skin: Reports No Symptoms
Vascular: Reports No Symptoms
Physical Exam
Vital Signs
Temp 98.5 F 05/18/25 15:18
Temp route: Oral 05/18/25 15:18
Pulse 80 05/18/25 15:18
Rhythm: Normal sinus rhythm 05/18/25 08:35
Resp Rate 16 05/18/25 15:18
Blood pressure 119/88 05/18/25 14:49
Blood pressure extremity used: Left upper arm 05/18/25 15:18
Position: Lying 05/18/25 15:18
MAP (cuff-Jose Monitor) 96 05/18/25 14:49
SaO2 97 05/18/25 15:18
Oxygen Mode of Delivery Room air 05/18/25 15:18
Can the patient verbally communicate their pain? Yes 05/17/25 23:44
Pain scale ratin 05/17/25 21:00
Actual Weight 105.8 kg 05/17/25 23:42
Body Mass Index (BMI) 31.7 05/17/25 23:42
Labs
05/18/25 03:22
05/18/25 03:22
APTT 74.4 Sec (23.4-35.0) H 05/18/25 09:28
Hemoglobin A1c 7.4 % (4.0-5.6) H 05/18/25 03:22
Troponin I 2.110 ng/ml H* 05/18/25 03:22
Exam
General: Well Developed, Well Nourished and No Apparent Distress
HEENT: Normocephalic, Anicteric, Moist Mucous Membranes and PERRLA
Neck: Trachea Midline
Respiratory: Clear
Cardiac: S1/S2 and Regular Rhythm
GI: Soft, Non Tender, Non Distended and Normal Bowel Sounds
Rectal: Deferred by Provider
Skin: Warm and Dry
Neuro: AO x 3, No Motor Deficits and Nonfocal/Grossly Intact
Lymph: No Lymphadenopathy
Psych: Calm
Assessment / Plan
-
60-year-old male admitted with NSTEMI and found to have triple-vessel coronary disease by catheterization
-Surgeon to review imaging and discuss risk/benefit of CABG with patient and family
-Preop diagnostic testing ordered
-STS risk score to be calculated when diagnostics complete
-Tentatively scheduled for CABG on Wednesday
-will have DM FUELS SALES REPRESENTATIVE follow post-op
Data Reviewed
-
EKG: Report Reviewed by me and Discussed with Physician
Material Processor: Report Reviewed by me and Discussed with Physician
Labs: Labs Reviewed by me and Discussed with Physician
--- NOTE | 2025-05-18 16:08 | CM ---
spoke to pt in room, he is prev indep, lives with his in a 3 story home with 1 step to enter. he has a cpap at home he uses. he denies any dc planningneeds or dme's. plan is for dc to home when medically stable.
[2025-05-18 17:15] LABS: Glucose - Point of Care 173 mg/dl (70-99)
[2025-05-18] MEDS: HEPARIN 25000 UNITS/250 ML IV (17:31)
[2025-05-18] MEDS: LIPITOR 80 MG PO (17:31)
[2025-05-18] MEDS: NOVOLOG FLEXPEN-LOW RESISTANCE 1 UNITS SC (18:03)
[2025-05-18 21:14] LABS: Glucose - Point of Care 173 mg/dl (70-99)
[2025-05-18] MEDS: LANTUS 0.1 UNITS SC (21:42)
[2025-05-18] MEDS: ATIVAN 0.5 MG PO (21:56)
[2025-05-19] VITALS (7 sets, daily range): BP systolic 107–128; BP diastolic 71–79; BMI 31.3
--- NOTE | 2025-05-19 01:33 | SUR.OPER ---
Assumed care of the pt @ 1900. Pt is AAOx3 SR on the monitor VSS Heparin gtt infusing @ 1500 units/HR denies cp rt radial cath site dressing c/d/i. Call astorga within reach.
[2025-05-19 03:05] LABS: Hematocrit 42.5 % (39.0-52.0); Hemoglobin 14.8 g/dL (13.0-18.0); Mean Corp Hgb Conc. 34.8 g/dL (33.0-37.0); Mean Corpuscular Volume 86.4 fL (80.0-94.0); Platelet Count 265 10^3/uL (130-400); Red Cell Dist. Width 12.8 % (11.5-14.5)
[2025-05-19 03:17] LABS: INR 1.24; PT 15.9 Sec (11.4-14.6)
[2025-05-19 03:18] LABS: APTT 55.6 Sec (23.4-35.0)
[2025-05-19 03:29] LABS: ALT (SGPT) 33 U/L (0-50); AST (SGOT) 27 U/L (17-59); Albumin 3.8 g/dl (3.5-5.0); Alkaline Phosphatase 105 U/L (38-126); Blood Urea Nitrogen 19 mg/dl (9-20); Calcium 8.9 mg/dl (8.4-10.2); Carbon Dioxide 21 mmol/L (22-30); Chloride 110 mmol/L (98-107); Estimated Creatinine Clearance 120 ml/min; Glucose 145 mg/dl (70-99); Potassium 4.3 mmol/L (3.5-5.1); Sodium 137 mmol/L (135-145); Total Protein 6.4 g/dl (6.3-8.2); eGFR > 60.00
[2025-05-19] MEDS: SYNTHROID 175 MCG PO (05:44)
[2025-05-19 06:08] LABS: B.E. 0.8 mmol/L; HCO3 24.3 mmol/L (21-28); O2 Saturation % 99.2 % (94-98); PCO2 35 mmHg (35-48); PO2 99 mmHg (83-108)
[2025-05-19 07:28] LABS: Glucose - Point of Care 168 mg/dl (70-99)
--- NOTE | 2025-05-19 07:30 | W.PN.HOSP.TC ---
Today's Communication/Plan
-
Check TSH
Continue current care
Assessment / Plan
Assessment / Plan
Gen-AAOx3, NAD
HEENT-NC, AT, anicteric, clear oral mm
Neck-supple
CV-reg, no M, +S1/S2
Lungs-clear B/L
Abd-soft, NT, ND
Ext-no edema
Musculoskeletal-no cyanosis, clubbing
Skin-warm and dry
Neuro-grossly non-focal
Psych-calm, cooperative
NSTEMI -symptoms resolved. Patient had cardiac catheterization yesterday reportedly showing three-vessel disease. I do not have access to the report, information gathered by speaking with patient's nurse. CT surgery has been consulted.
EKG shows normal sinus rhythm, age-indeterminate inferior and anterior infarcts.
He has had intermittent epigastric chest pressure and burning chest pain for the past month. Reportedly had negative stress test 10 years ago, never had catheterization.
Troponin trending down. Initial troponin 2.2.
Hyperlipidemia -states he is not on a statin. Reports that rosuvastatin caused worsening hyperglycemia.
LDL 177, HDL 36, triglycerides 243, total cholesterol 261.
Atorvastatin started.
DM 2 without hyperglycemia -hemoglobin A1c 7.4%. At home he is on Solostar 40 units in the evening, NovoLog 30 to 40 units with breakfast only. Does not use NovoLog with other meals. Follows with endocrinology, Dr. Villatoro. He does have a Dexcom
with mostly good readings.
Glucose 145 this morning. Continue Lantus 10 units at bedtime, NovoLog low resistance scale.
I spoke with patient, recommend tighter glucose control especially in light of CAD and other risk factors. Goal A1c less than 7%.
Hypothyroidism -on levothyroxine. Check TSH.
GERD
ROBBY -on CPAP.
Right thumb tendinitis
Testosterone deficiency
History of herniated lumbar disks
Obesity due to excess calories
Full code
Anticipated Discharge: > 48 hours
Subjective/Interval History
-
Date of Service: May 19, 2025
Patient seen and examined, no complaints.
Objective Data
-
Labs:
Laboratory Results
05/19/25 05/19/25 05/19/25
02:46 05:57 10:00
WBC 6.8
Hgb 14.8
Hct 42.5
Plt Count 265
PT 15.9 H
INR 1.24
APTT 55.6 H Pending
HCO3 24.3
Sodium 137
Potassium 4.3
Chloride 110 H
Carbon Dioxide 21 L
BUN 19
Creatinine 0.8
Glucose 145 H
Calcium 8.9
Total Bilirubin 0.5
AST 27
ALT 33
Alkaline Phosphatase 105
Vital Signs:
Vital Signs
Temp Pulse Resp BP Pulse Ox
98.7 F 83 18 114/76 97
05/19/25 07:22 05/19/25 02:34 05/19/25 07:22 05/19/25 02:34 05/19/25 07:22
I&O
05/18/25 05/19/25 05/20/25
06:59 06:59 06:59
Intake Total 240 / 240
Balance 240 / 240
Review of Systems
-
History Source: Patient
All other systems: Reviewed and negative
--- NOTE | 2025-05-19 09:58 | W.PN.CARDCBS ---
Addendum entered and electronically signed by Eugenio Santos MD 05/19/25 10:18:
Patient seen and examined
No chest pain currently
Exam:
H&T normocephalic atraumatic
JVP 6
Cor regular no murmur
Lungs clear to auscultation bilaterally
Abdomen soft nontender positive bowel sounds
No extremity edema
Nonfocal neurologically
Telemetry reviewed
Assessment:
Presentation with epigastric pain with exertion
NSTEMI, trop 2
Multivessel coronary disease by cath including LAD and ulcerated RCA
DM2
Hypothyroidism
Obesity
ROBBY
Laminectomy x2
Remote former smoker
ECHO 05/18/25: EF 37% by volumetric assessment and 47% by Alexander's, mild to moderate MR
Plan:
-cath 05/18 with ulcerated RCA (felt to be culprit) and occluded LAD.
-Echo with EF approximately 40% and mild to moderate MR
-CT surgery to evaluate
-continue asa, IV heparin
-LDL 177. He reports a history of significantly worsened blood sugars while on statin therapy in the past. We discussed retrialing statin therapy in setting of CT and he is agreeable. will need to follow blood sugars closely. would consider
diabetic DOLLY DRIVER consult. hgbA1c 7.4%
-continue toprol 12.5mg daily. Eventual GDMT of cardiomyopathy as able
Original Note:
Today's Communication / Plan
-
CT surgical evaluation
continue aspirin, IV heparin, Toprol, Lipitor
Impression / Plan
-
Primary Cst: none prior to admission
Assessment:
Presentation with epigastric pain with exertion
NSTEMI, trop 2
Multivessel coronary disease by cath including LAD and ulcerated RCA
DM2
Hypothyroidism
Obesity
ROBBY
Laminectomy x2
Remote former smoker
ECHO 05/18/25: EF 37% by volumetric assessment and 47% by Alexander's, mild to moderate MR
Plan:
-Patient presents with episodes of progressive epigastric pain with exertion
-EKG SR with evidence of inferior and anterior Q waves and lateral T wave depression
-ruled in for NSTEMI with peak trop 2
-cath 05/18 with ulcerated RCA (felt to be culprit) and occluded LAD.
-Echo with EF approximately 40% and mild to moderate MR
-CT surgery to evaluate
-continue asa, IV heparin
-LDL 177. He reports a history of significantly worsened blood sugars while on statin therapy in the past. We discussed retrialing statin therapy in setting of CT and he is agreeable. will need to follow blood sugars closely. would consider
diabetic DOLLY DRIVER consult. hgbA1c 7.4%
-continue toprol 12.5mg daily. Eventual GDMT of cardiomyopathy as able
Progress Note - Cst
Subjective
Date of Service: May 19, 2025
No complaints overnight
Objective
Labs:
05/19/25 02:46
05/19/25 02:46
Labs
Hgb 14.8 g/dL (13.0-18.0) 05/19/25 02:46
Hct 42.5 % (39.0-52.0) 05/19/25 02:46
Plt Count 265 10^3/uL (130-400) 05/19/25 02:46
PT 15.9 Sec (11.4-14.6) H 05/19/25 02:46
INR 1.24 05/19/25 02:46
APTT 55.6 Sec (23.4-35.0) H 05/19/25 02:46
Sodium 137 mmol/L (135-145) 05/19/25 02:46
Potassium 4.3 mmol/L (3.5-5.1) 05/19/25 02:46
BUN 19 mg/dl (9-20) 05/19/25 02:46
Creatinine 0.8 mg/dL (0.7-1.3) 05/19/25 02:46
Glucose 145 mg/dl (70-99) H 05/19/25 02:46
Troponins
05/17/25 05/17/25 05/18/25
19:23 22:51 03:22
Troponin I 2.230 H* 2.100 H* 2.110 H*
Vital Signs and I&O:
Vital Signs
Temp Pulse Resp BP Pulse Ox
98.7 F 83 18 114/76 97
05/19/25 07:22 05/19/25 02:34 05/19/25 07:22 05/19/25 02:34 05/19/25 07:22
Vital Signs
Temp Pulse Resp BP Pulse Ox
98.7 F 83 18 114/76 97
05/19/25 07:22 05/19/25 02:34 05/19/25 07:22 05/19/25 02:34 05/19/25 07:22
Intake & Output
05/17/25 05/18/25 05/19/25 05/20/25
07:59 07:59 07:59 07:59
Intake Total 240 / 240
Balance 240 / 240
Physical Exam
Physical Exam
GEN: No distress, awake, alert, oriented x3
HEENT: supple, anicteric, mmm, EOMI
LUNGS: CTA bilaterally, no wheezes/rales
CV: Reg, S1/S2, no murmur
ABD: soft, BS+, NT/ND
EXT: No cyanosis, clubbing, Edema
NEURO: Gross non-focal
SKIN: warm, pink, dry. No rash. Right wrist site with dressing clean dry and intact
[2025-05-19] MEDS: ASPIR LOW (ENTERIC COATED) 81 MG PO (10:08)
[2025-05-19] MEDS: PROTONIX 40 MG PO (10:08)
[2025-05-19] MEDS: TOPROL XL 12.5 MG PO (10:08)
[2025-05-19] MEDS: NOVOLOG FLEXPEN-LOW RESISTANCE 1 UNITS SC ×2 (10:09→17:40)
[2025-05-19 10:10] LABS: TSH 3.72 uIU/ml (0.47-4.68)
[2025-05-19] MEDS: HEPARIN 25000 UNITS/250 ML IV (10:16)
[2025-05-19] MEDS: VITAMIN B-12 500 MCG PO (10:29)
[2025-05-19 10:58] LABS: APTT 81.9 Sec (23.4-35.0)
[2025-05-19 12:26] LABS: Glucose - Point of Care 183 mg/dl (70-99)
[2025-05-19 16:48] LABS: APTT 72.3 Sec (23.4-35.0)
[2025-05-19] MEDS: LIPITOR 80 MG PO (17:39)
[2025-05-19] MEDS: NOVOLOG FLEXPEN-LOW RESISTANCE SC (17:39)
[2025-05-19 17:41] LABS: Glucose - Point of Care 192 mg/dl (70-99)
--- NOTE | 2025-05-19 18:34 | PTCARENOTE ---
pt is sr on the monitor, hr in the 90s, vss. pt offers no complaints at this time. pt ambulating in room and tolerating well. heparin gtt running per protocol, see documentation. call astorga within reach.
[2025-05-19 19:24] LABS: Glucose - Point of Care 198 mg/dl (70-99)
--- NOTE | 2025-05-19 21:35 | PTCARENOTE ---
Received pt @ change of shift. AAOx3, VSS-- NSR on monitor. Right radial site clean, dry, and intact-- no ecchymosis or swelling. Heparin gtt running @ 1800 units/hr through right AC. Pt ok to shower-- educated on taking a quick and not too hot
shower. Discussed plan of care for evening. Pt verbalizes understanding. Call astorga within reach.
[2025-05-19] MEDS: ATIVAN 0.5 MG PO (22:09)
[2025-05-19] MEDS: LANTUS 0.1 UNITS SC (22:10)
[2025-05-20] VITALS (7 sets, daily range): BP systolic 106–138; BP diastolic 64–87
--- NOTE | 2025-05-20 00:31 | PTCARENOTE ---
Pt's heparin gtt was paused while he showered. See worklist. PTT rescheduled to make up for time it was off.
[2025-05-20] MEDS: HEPARIN 25000 UNITS/250 ML IV ×2 (01:46→17:33)
[2025-05-20 02:22] LABS: APTT 124.8 Sec (23.4-35.0)
[2025-05-20 03:36] LABS: ALT (SGPT) 30 U/L (0-50); AST (SGOT) 26 U/L (17-59); Albumin 3.9 g/dl (3.5-5.0); Alkaline Phosphatase 107 U/L (38-126); Blood Urea Nitrogen 16 mg/dl (9-20); Calcium 9.0 mg/dl (8.4-10.2); Carbon Dioxide 23 mmol/L (22-30); Chloride 111 mmol/L (98-107); Estimated Creatinine Clearance 106 ml/min; Glucose 147 mg/dl (70-99); Potassium 4.3 mmol/L (3.5-5.1); Sodium 139 mmol/L (135-145); Total Protein 6.4 g/dl (6.3-8.2); eGFR > 60.00
[2025-05-20] MEDS: SYNTHROID 175 MCG PO (06:46)
[2025-05-20 08:16] LABS: Glucose - Point of Care 163 mg/dl (70-99)
--- NOTE | 2025-05-20 08:45 | W.PN.UPDATE ---
Update Note
Progress Note Update
Consented for CABG x 2-3 and LINDSEY Saldana Plan for Wednesday with me and Dr. Mazariegos. All questions were answered with spouse present.
[2025-05-20] MEDS: NOVOLOG FLEXPEN-LOW RESISTANCE 1 UNITS SC ×2 (09:10→14:18)
[2025-05-20] MEDS: ASPIR LOW (ENTERIC COATED) 81 MG PO (09:11)
[2025-05-20] MEDS: TOPROL XL 12.5 MG PO (09:11)
[2025-05-20] MEDS: PROTONIX 40 MG PO (09:11)
[2025-05-20] MEDS: VITAMIN B-12 500 MCG PO (09:21)
[2025-05-20 09:58] LABS: APTT 98.5 Sec (23.4-35.0)
--- NOTE | 2025-05-20 11:02 | W.PN.HOSP.TC ---
Today's Communication/Plan
-
Resume CPAP
Assessment / Plan
Assessment / Plan
Gen-AAOx3, NAD
HEENT-NC, AT, anicteric, clear oral mm
Neck-supple
CV-reg, no M, +S1/S2
Lungs-clear B/L
Abd-soft, NT, ND
Ext-no edema
Musculoskeletal-no cyanosis, clubbing
Skin-warm and dry
Neuro-grossly non-focal
Psych-calm, cooperative
NSTEMI -symptoms resolved. Cardiac catheterization reportedly showed ulcerated RCA which was felt to be the culprit, occluded LAD.
CT surgery recommends bypass surgery, to be done this Wednesday.
EKG shows normal sinus rhythm, age-indeterminate inferior and anterior infarcts.
He has had intermittent epigastric chest pressure and burning chest pain for the past month. Reportedly had negative stress test 10 years ago, never had catheterization.
Troponin trending down. Initial troponin 2.2.
Hyperlipidemia -states he is not on a statin. Reports that rosuvastatin caused worsening hyperglycemia.
LDL 177, HDL 36, triglycerides 243, total cholesterol 261.
Atorvastatin started.
DM 2 without hyperglycemia -hemoglobin A1c 7.4%. At home he is on Solostar 40 units in the evening, NovoLog 30 to 40 units with breakfast only. Does not use NovoLog with other meals. Follows with endocrinology, Dr. Villatoro. He does have a Dexcom
with mostly good readings.
Glucose 147 this morning. Continue Lantus 10 units at bedtime, NovoLog low resistance scale.
I spoke with patient, recommend tighter glucose control especially in light of CAD and other risk factors. Goal A1c less than 7%.
Hypothyroidism -on levothyroxine. TSH 3.72.
GERD -was on Prilosec 20 mg daily prior to admission.
ROBBY -on CPAP, which he has not been using for 2 weeks as he felt that it was causing his indigestion and reflux symptoms to worsen.
Encouraged patient to resume using tonight and to ask to bring in. Will use Protonix for GERD.
Patient states his AHI was 15 on a sleep study.
Right thumb tendinitis
Testosterone deficiency
History of herniated lumbar disks
Obesity due to excess calories
Full code
Anticipated Discharge: > 48 hours
Subjective/Interval History
-
Date of Service: May 20, 2025
Patient seen and examined. No complaints.
Objective Data
-
Labs:
Laboratory Results
05/20/25 05/20/25 05/20/25
00:00 01:54 09:31
APTT Cancelled 124.8 H 98.5 H
Sodium 139
Potassium 4.3
Chloride 111 H
Carbon Dioxide 23
BUN 16
Creatinine 0.9
Glucose 147 H
Calcium 9.0
Total Bilirubin 0.5
AST 26
ALT 30
Alkaline Phosphatase 107
05/20/25
16:00
APTT Pending
Sodium
Potassium
Chloride
Carbon Dioxide
BUN
Creatinine
Glucose
Calcium
Total Bilirubin
AST
ALT
Alkaline Phosphatase
Vital Signs:
Vital Signs
Temp Pulse Resp BP Pulse Ox
98.5 F 81 16 117/81 96
05/20/25 01:57 05/20/25 09:11 05/20/25 01:57 05/20/25 09:11 05/20/25 01:57
I&O
05/19/25 05/20/25 05/21/25
06:59 06:59 06:59
Intake Total 240 / 240 1440 / 1440
Balance 240 / 240 1440 / 1440
Review of Systems
-
History Source: Patient
All other systems: Reviewed and negative
--- NOTE | 2025-05-20 11:16 | W.PN.CARDCBS ---
Today's Communication / Plan
-
Antianginals and heparin
Appreciate CT surgical evaluation
Tentative surgical date is Wednesday
Impression / Plan
-
Primary Mounter Clarinets: none prior to admission
Assessment:
Presentation with epigastric pain with exertion
NSTEMI, trop 2
Multivessel coronary disease by cath including LAD and ulcerated RCA
DM2
Hypothyroidism
Obesity
ROBBY
Laminectomy x2
Remote former smoker
ECHO 05/18/25: EF 37% by volumetric assessment and 47% by Alexander's, mild to moderate MR
Plan:
-Appreciate CT surgical evaluation and tentative surgical date is Wednesday with Dr. Burger
-cath 05/18 with ulcerated RCA (felt to be culprit) and occluded LAD.
-Echo with EF approximately 40% and mild to moderate MR
-continue asa, IV heparin
-LDL 177. He reports a history of significantly worsened blood sugars while on statin therapy in the past. We discussed retrialing statin therapy in setting of PR and he is agreeable. will need to follow blood sugars closely. would consider
diabetic INFRASTRUCTURE MANAGER consult. hgbA1c 7.4%
-continue toprol 12.5mg daily. Eventual GDMT of cardiomyopathy as able
Progress Note - Mounter Clarinets
Subjective
Date of Service: May 20, 2025
No angina with ambulation today
Objective
Labs:
05/19/25 02:46
05/20/25 01:54
Labs
Hgb 14.8 g/dL (13.0-18.0) 05/19/25 02:46
Hct 42.5 % (39.0-52.0) 05/19/25 02:46
Plt Count 265 10^3/uL (130-400) 05/19/25 02:46
PT 15.9 Sec (11.4-14.6) H 05/19/25 02:46
INR 1.24 05/19/25 02:46
APTT 98.5 Sec (23.4-35.0) H 05/20/25 09:31
Sodium 139 mmol/L (135-145) 05/20/25 01:54
Potassium 4.3 mmol/L (3.5-5.1) 05/20/25 01:54
BUN 16 mg/dl (9-20) 05/20/25 01:54
Creatinine 0.9 mg/dL (0.7-1.3) 05/20/25 01:54
Glucose 147 mg/dl (70-99) H 05/20/25 01:54
Troponins
05/17/25 05/17/25 05/18/25
19:23 22:51 03:22
Troponin I 2.230 H* 2.100 H* 2.110 H*
Vital Signs and I&O:
Vital Signs
Temp Pulse Resp BP Pulse Ox
98.5 F 81 16 117/81 96
05/20/25 01:57 05/20/25 09:11 05/20/25 01:57 05/20/25 09:11 05/20/25 01:57
Vital Signs
Temp Pulse Resp BP Pulse Ox
98.5 F 81 16 117/81 96
05/20/25 01:57 05/20/25 09:11 05/20/25 01:57 05/20/25 09:11 05/20/25 01:57
Intake & Output
05/18/25 05/19/25 05/20/25 05/21/25
06:59 06:59 06:59 06:59
Intake Total 240 / 240 1440 / 1440
Balance 240 / 240 1440 / 1440
Physical Exam
Physical Exam
����Physical Exam
���������������������General:��no apparent distress, not acutely ill
���������������������������Neck:��supple. no meningeal signs. normal psoterior pharynx
������������������������
���������������������������Heart:��s1/s2 regular rate and rhythm, no murmur. equal radial pulses.
��������������������������Lungs: ��no acute respiratory distress. clear bilaterally
����������������������Abdomen:�normal bowel sounds. not tender. no CVAT
��������������������������Neuro:��alert and oriented. no focal neurological deficits
������������������������������Skin: ��no rash
�����������������������Psychiatric:�well kept. interactive and cooperative
�����������������������Extremities:��no edema. no calf tenderness. negative homans. good distal pulses
��
�
[2025-05-20 14:18] LABS: Glucose - Point of Care 160 mg/dl (70-99)
--- NOTE | 2025-05-20 15:04 | RESPNOTE ---
pt spoken with abut cpap order for diogo, he noted 'that he has not been wearing it for the last 2 weeks because of his gastric issues. He went to the doctor who put him on prilosec and said it would take a few weeks to work.' He is not
interested in wearing our CPAP as he has nasel pillows at home. He will have his bring his cpap tomorrow.
[2025-05-20 17:10] LABS: APTT 83.2 Sec (23.4-35.0)
[2025-05-20] MEDS: LIPITOR 80 MG PO (17:42)
[2025-05-20] MEDS: NOVOLOG FLEXPEN-LOW RESISTANCE 2 UNITS SC (18:10)
[2025-05-20 18:11] LABS: Glucose - Point of Care 202 mg/dl (70-99)
--- NOTE | 2025-05-20 18:33 | PTCARENOTE ---
pt continues to be sr on the monitor hr in the 80s, vss. pt offers no complaints at this time. pt ambulating in room and alonso and tolerating well. heparin gtt running pr protocol, see documentation. call astorga within reach.
[2025-05-20] MEDS: ATIVAN 0.5 MG PO (21:42)
[2025-05-20] MEDS: LANTUS 0.1 UNITS SC (21:44)
[2025-05-20 21:45] LABS: Glucose - Point of Care 197 mg/dl (70-99)
--- NOTE | 2025-05-20 22:54 | PTCARENOTE ---
Rec'd pt at change of shift. Pt AAO*3, VSS, and SR on TELE monitor. Heparin infusing as ordered. Pt updated on plan of care regarding upcoming CT surgery scheduled. Pt resting with call astorga in reach. See MAR and flowchart for full pt care and
assessment.
[2025-05-21 03:25] VITALS: BP 131/83
[2025-05-21 04:24] LABS: Hematocrit 42.6 % (39.0-52.0); Hemoglobin 14.7 g/dL (13.0-18.0); Mean Corp Hgb Conc. 34.5 g/dL (33.0-37.0); Mean Corpuscular Volume 85.7 fL (80.0-94.0); Platelet Count 260 10^3/uL (130-400); Red Cell Dist. Width 12.9 % (11.5-14.5)
[2025-05-21 04:46] LABS: APTT 78.7 Sec (23.4-35.0)
[2025-05-21] MEDS: HEPARIN 25000 UNITS/250 ML IV ×2 (05:44→23:20)
[2025-05-21] MEDS: SYNTHROID 175 MCG PO (05:45)
[2025-05-21 07:51] VITALS: BP 120/77
[2025-05-21 07:55] LABS: Glucose - Point of Care 174 mg/dl (70-99)
[2025-05-21] MEDS: ASPIR LOW (ENTERIC COATED) 81 MG PO (08:23)
[2025-05-21] MEDS: PROTONIX 40 MG PO (08:23)
[2025-05-21] MEDS: TOPROL XL 12.5 MG PO (08:23)
[2025-05-21] MEDS: VITAMIN B-12 500 MCG PO (08:23)
[2025-05-21] MEDS: NOVOLOG FLEXPEN-LOW RESISTANCE 1 UNITS SC ×3 (09:16→17:55)
--- NOTE | 2025-05-21 09:56 | W.PN.CARDCBS ---
Today's Communication / Plan
-
Await CT surgery which is tentatively scheduled for Tuesday 05/22
Continue IV heparin
Impression / Plan
-
Primary Seed Trucker: none prior to admission
Assessment:
Presentation with epigastric pain with exertion
NSTEMI, trop 2
Multivessel coronary disease by cath including LAD and ulcerated RCA
DM2
Hypothyroidism
Obesity
ROBBY
Laminectomy x2
Remote former smoker
ECHO 05/18/25: EF 37% by volumetric assessment and 47% by Alexander's, mild to moderate MR
Plan:
Await CT surgery which is planned for Tuesday 05/22
Continue IV heparin
-LDL 177. He reports a history of significantly worsened blood sugars while on statin therapy in the past. We discussed retrialing statin therapy in setting of MD and he is agreeable. will need to follow blood sugars closely. hgbA1c 7.4%
continue toprol 12.5mg daily. Eventual GDMT of cardiomyopathy as able
Progress Note - Seed Trucker
Subjective
Date of Service: May 21, 2025
No chest pain or shortness of breath
Objective
Labs:
05/21/25 03:32
05/20/25 01:54
Labs
Hgb 14.7 g/dL (13.0-18.0) 05/21/25 03:32
Hct 42.6 % (39.0-52.0) 05/21/25 03:32
Plt Count 260 10^3/uL (130-400) 05/21/25 03:32
PT 15.9 Sec (11.4-14.6) H 05/19/25 02:46
INR 1.24 05/19/25 02:46
APTT 78.7 Sec (23.4-35.0) H 05/21/25 03:32
Sodium 139 mmol/L (135-145) 05/20/25 01:54
Potassium 4.3 mmol/L (3.5-5.1) 05/20/25 01:54
BUN 16 mg/dl (9-20) 05/20/25 01:54
Creatinine 0.9 mg/dL (0.7-1.3) 05/20/25 01:54
Glucose 147 mg/dl (70-99) H 05/20/25 01:54
Vital Signs and I&O:
Vital Signs
Temp Pulse Resp BP Pulse Ox
97.8 F 73 20 120/77 94
05/21/25 07:50 05/21/25 08:23 05/21/25 07:50 05/21/25 08:23 05/21/25 07:50
Vital Signs
Temp Pulse Resp BP Pulse Ox
97.8 F 73 20 120/77 94
05/21/25 07:50 05/21/25 08:23 05/21/25 07:50 05/21/25 08:23 05/21/25 07:50
Intake & Output
05/19/25 05/20/25 05/21/25 05/22/25
06:59 06:59 06:59 06:59
Intake Total 240 / 240 1440 / 1440 960 / 960
Balance 240 / 240 1440 / 1440 960 / 960
Physical Exam
Physical Exam
General: Well developed, well nourished in NAD.
Neck: Supple, no JVD, HJR, carotids +2 B/L, no bruits bilaterally.
Heart: Non displaced PMI, RRR, no murmurs, No S3, S4, no rubs.
Lungs: Clear to auscultation bilaterally, no wheeze, rhonchi, rubs bilaterally,
normal expiratory phase.
Extremities: No clubbing, cyanosis or edema bilaterally.
Neuro: Grossly nonfocal, awake, alert and oriented x3.
[2025-05-21 11:35] VITALS: BP 127/71
--- NOTE | 2025-05-21 11:51 | ITS.CL.CATH ---
Software Technician - Catheterization
Cardiac Catheterization
Procedure Report:
LEFT HEART CATHETERIZATION
Date of Procedure: May 18, 2025
Referring: Dr. Baljinder Marcus
PROCEDURES:
1. Left heart catheterization with coronary and single-plane left ventriculography
INDICATION: This is a 60-year-old gentleman with a past medical history notable for type 2 diabetes for about 20 years, hypertension, hypothyroidism, sleep apnea, and hyperlipidemia. He presented to [facility] for evaluation of substernal
chest tightness. He has experienced epigastric discomfort for the past several months and recent substernal chest pain during periods of physical exertion or emotional stress. His symptoms would improve with rest. On the evening of admission he
developed substernal chest tightness and went to an urgent care and was then transferred to the emergency room with a troponin of 2. He has been chest pain-free since arrival and is now referred for coronary angiography.
ACCESS: Right radial artery, 6 Cymraes sheath
HEMODYNAMICS : (mmHg)
AO (s/d) : 127/73, 97
LV (s/d) : 130/15
LVEDP : 34
CORONARY FINDINGS
DOMINANCE: Right
LEFT MAIN: Normal
LEFT ANTERIOR DESCENDING: The LAD is 100% occluded at its origin and the distal vessel fills via well-developed left to left collaterals filling a large terminal diagonal branch and the mid to distal LAD.
RAMUS: Small caliber vessel with 80% ostial stenosis
CIRCUMFLEX: The circumflex is a medium caliber nondominant vessel giving rise to a moderate caliber OM1 and terminating in a bifurcating OM 2. Minor irregularities are noted.
RIGHT CORONARY ARTERY: The right coronary artery is a dominant vessel with an eccentric ulcerated 80% proximal stenosis that likely represents the culprit lesion resulting in patient's symptoms. The mid to distal RCA has luminal irregularities.
The PDA has a 40% mid stenosis and the posterolateral branch has minor irregularities but no focal obstructive lesion.
VENTRICULOGRAPHY: Left ventriculography is performed in an NINO projection. The digital single-plane left ventricular ejection fraction is visually estimated at 45-50% with mild anterolateral and diaphragmatic inferior hypokinesis
SEDATION: 25 minutes of procedural sedation was utilized. An independent medical attendant was present to assist with and help manage the patient's level of consciousness and physiologic status.
RADIATION SUMMARY: Fluoro Time (min): 4.3, Dose (mGy): 673, DAP (Gy.cm2) : 52.5
Closure Device: TR band
CONCLUSIONS
1. Multivessel coronary artery disease with chronic total occlusion of the ostial to mid LAD and ulcerated stenosis in the proximal RCA. A large terminal diagonal branch in the distal LAD are noted to fill via well-developed left to left
collaterals.
2. Low normal to mildly reduced LVEF
RECOMMENDATIONS
1. Consult CT surgery to consider coronary artery bypass grafting of LAD/diagonal, possibly the small ramus intermedius and the RCA
2. Continue aspirin and heparin for anticoagulation. Further management decisions will be made after CT surgical evaluation
--- NOTE | 2025-05-21 12:08 | PTCARENOTE ---
Pt is AOx3, no complaints of pain or discomfort. Heparin gtt infusing per orders. Pt went for US this AM. SR on tele monitor, VSS. Independent OOB. Call astorga within reach.
--- NOTE | 2025-05-21 12:51 | W.PN.UPDATE ---
Addendum entered and electronically signed by Diana Mazariegos MD 05/21/25 15:08:
STS risk reviewed
Original Note:
Update Note
Progress Note Update
STS Risk Calculation. Planning CABG tomorrow, 2nd case, Dr. Mazariegos
Procedure Type:�Isolated CABG
Perioperative Outcome Estimate %
Operative Mortality 1.09%
Morbidity & Mortality 6.59%
Stroke 1.02%
Renal Failure 1.2%
Reoperation 2.06%
Prolonged Ventilation 3.31%
Deep Sternal Wound Infection 0.297%
Long Hospital Stay (>14 days) 3.23%
Short Hospital Stay (<6 days)* 48%
[2025-05-21 13:45] LABS: Glucose - Point of Care 189 mg/dl (70-99)
--- NOTE | 2025-05-21 14:25 | W.CVOR.SURPR ---
CVOR Surgeon Immed Pre Op
-
I have examined this patient prior to performance of the scheduled procedure.
The patient's condition is unchanged from the time of the dictated/written History and
Physical and the patient is able to undergo the scheduled procedure.
Plan for OR tomorrow AM- CABGLINDSEY
STS risk calculator completed and reviewed
--- NOTE | 2025-05-21 15:10 | W.PN.HOSP.TC ---
Today's Communication/Plan
-
continue IV Heparin
CABG tomorrow
Assessment / Plan
Assessment / Plan
Assessment:
NSTEMI
CAD with multi-vessel CAD (LAD, ulcerated RCA
- s/p LHC 05/18 with High-grade stenosis/occlusion at the origin of the right vertebral artery. Mild flow in the mid to distal right vertebral artery, although smaller in caliber and again may be from retrograde or collateral blood flow.
- CABG planned 05/[address] surgery service
- trop peaked 2.2
- continue ASA/Statin/BB. IV heparin continues.
HLD
- statin; LDL 177
Type 2 DM
- A1c is 7.4%. Follows with Dr. Archibald [facility]. Uses Dexcom
- continue Lantus, Novolog SSI. Tighter glucose control in setting of CAD, other risk factors. Goal A1c less than 7%.
Hypothyroidism - on levothyroxine. TSH 3.72.
GERD - continue PPI
ROBBY on CPAP
- Continue HS usage of CPAP
Right thumb tendinitis
Testosterone deficiency
History of herniated lumbar disks
Obesity due to excess calories
DVT ppx: IV Heparin
Code: Full
Anticipated Discharge: > 48 hours
Subjective/Interval History
-
Date of Service: May 21, 2025
resting comfortably, no cp or sob
Objective Data
-
Labs:
Laboratory Results
05/21/25
03:32
WBC 6.8
Hgb 14.7
Hct 42.6
Plt Count 260
APTT 78.7 H
Vital Signs:
Vital Signs
Temp Pulse Resp BP Pulse Ox
97.3 F 70 20 127/71 99
05/21/25 11:36 05/21/25 11:35 05/21/25 11:36 05/21/25 11:35 05/21/25 11:36
I&O
05/20/25 05/21/25 05/22/25
06:59 06:59 06:59
Intake Total 1440 / 1440 960 / 960
Balance 1440 / 1440 960 / 960
Physical Exam
-
General: No Apparent Distress
HEENT: Normocephalic
Respiratory: Clear to Auscultation; Negative Wheezes
Cardiac: Regular Rhythm and S1/S2
GI: Soft and Nontender
Neuro: AO x 3
Psych: Calm
Data Reviewed
-
Total Time Spent with Patient (in minutes): 51
Labs: Labs Reviewed by me
[2025-05-21 15:42] VITALS: BP 128/79
[2025-05-21 17:02] LABS: Glucose - Point of Care 189 mg/dl (70-99)
[2025-05-21] MEDS: LIPITOR 80 MG PO (17:55)
[2025-05-21 21:15] VITALS: BP 119/72
[2025-05-21 22:36] LABS: Glucose - Point of Care 177 mg/dl (70-99)
[2025-05-21] MEDS: LANTUS 0.1 UNITS SC (23:22)
[2025-05-21] MEDS: ATIVAN 0.5 MG PO (23:22)
[2025-05-21 23:31] VITALS: BP 113/77
[2025-05-22] VITALS (16 sets, daily range): BP systolic 90–133; BP diastolic 64–88; BMI 30.8
[2025-05-22] MEDS: SYNTHROID 175 MCG PO (05:25)
[2025-05-22 05:36] LABS: Hematocrit 44.7 % (39.0-52.0); Hemoglobin 15.3 g/dL (13.0-18.0); Mean Corp Hgb Conc. 34.2 g/dL (33.0-37.0); Mean Corpuscular Volume 86.3 fL (80.0-94.0); Platelet Count 257 10^3/uL (130-400); Red Cell Dist. Width 12.9 % (11.5-14.5)
[2025-05-22 05:51] LABS: APTT 110.6 Sec (23.4-35.0)
[2025-05-22 05:56] LABS: Blood Urea Nitrogen 14 mg/dl (9-20); Calcium 9.2 mg/dl (8.4-10.2); Carbon Dioxide 22 mmol/L (22-30); Chloride 108 mmol/L (98-107); Estimated Creatinine Clearance 106 ml/min; Glucose 186 mg/dl (70-99); Potassium 4.5 mmol/L (3.5-5.1); Sodium 138 mmol/L (135-145); eGFR > 60.00
--- NOTE | 2025-05-22 06:20 | PTCARENOTE ---
Pt NSR on monitor, VSS. Denies chest pain or any discomfort this shift. Heparin gtt per order. NPO after midnight for CABG. CHG Bath, CHG wipes and shaving completed per protocol.
[2025-05-22 07:10] LABS: Glucose - Point of Care 179 mg/dl (70-99)
[2025-05-22] MEDS: VITAMIN B-12 PO (07:44)
[2025-05-22] MEDS: ASPIR LOW (ENTERIC COATED) PO (08:05)
[2025-05-22] MEDS: TOPROL XL PO (08:06)
[2025-05-22] MEDS: PROTONIX PO (08:06)
[2025-05-22] MEDS: LOPRESSOR 25 MG PO (08:11)
[2025-05-22] MEDS: BACTROBAN NASAL 1 GRAM NASAL (08:11)
[2025-05-22] MEDS: MAGNESIUM OXIDE 400 MG PO (08:11)
[2025-05-22] MEDS: PROTONIX 40 MG PO (08:12)
--- NOTE | 2025-05-22 08:22 | PTCARENOTE ---
Assumed care of pt from night RN. Evi3. NSR on nuclear monitoring technician, HR 70s. VSS. NPO for CVOR today with Dr. Mazariegos. Pre-op meds given (see MAR). Remains on Heparin gtt at this time per protocol. Assessment documented. Pt resting in bed, at
bedside.
[2025-05-22] MEDS: NOVOLOG FLEXPEN-LOW RESISTANCE 1 UNITS SC (08:39)
--- NOTE | 2025-05-22 09:19 | W.PN.HOSP.TC ---
Today's Communication/Plan
-
for CABG today and patient to transfer to CT Surgery service
hospitalist service will sign off upon transfer
Assessment / Plan
Assessment / Plan
Assessment:
NSTEMI
CAD with multi-vessel CAD (LAD, ulcerated RCA
- s/p [facility] 05/18 with High-grade stenosis/occlusion at the origin of the right vertebral artery. Mild flow in the mid to distal right vertebral artery, although smaller in caliber and again may be from retrograde or collateral blood flow.
- CABG planned today with CT surgery service
- trop peaked 2.2
- continue ASA/Statin/BB. IV heparin continues.
HLD
- statin; LDL 177
Type 2 DM
- A1c is 7.4%. Follows with Dr. Archibald [facility]. Uses Dexcom
- continue Lantus, Novolog SSI. Tighter glucose control in setting of CAD, other risk factors. Goal A1c less than 7%.
Hypothyroidism - on levothyroxine. TSH 3.72.
GERD - continue PPI
ROBBY on CPAP
- Continue HS usage of CPAP
Right thumb tendinitis
Testosterone deficiency
History of herniated lumbar disks
Obesity due to excess calories
DVT ppx: IV Heparin
Code: Full
Anticipated Discharge: > 48 hours
Subjective/Interval History
-
Date of Service: May 22, 2025
no chest pain
for CABG today
Objective Data
-
Labs:
Laboratory Results
05/22/25
05:18
WBC 6.8
Hgb 15.3
Hct 44.7
Plt Count 257
APTT 110.6 H
Sodium 138
Potassium 4.5
Chloride 108 H
Carbon Dioxide 22
BUN 14
Creatinine 0.9
Glucose 186 H
Calcium 9.2
Vital Signs:
Vital Signs
Temp Pulse Resp BP Pulse Ox
98.0 F 70 18 133/87 96
05/22/25 07:04 05/22/25 08:11 05/22/25 07:04 05/22/25 08:11 05/22/25 07:04
I&O
05/21/25 05/22/25 05/23/25
06:59 06:59 06:59
Intake Total 960 / 960 496 / 496
Balance 960 / 960 496 / 496
Physical Exam
-
General: No Apparent Distress
HEENT: Normocephalic and Atraumatic
Respiratory: Negative Wheezes
Cardiac: Regular Rhythm and S1/S2
GI: Soft and Nontender
Neuro: AO x 3
Psych: Calm
Data Reviewed
-
Total Time Spent with Patient (in minutes): 41
Labs: Labs Reviewed by me
[2025-05-22 10:41] LABS: ACT+ - POC 145 Seconds (82-134)
[2025-05-22 12:20] LABS: Urine Character Clear (Clear)
[2025-05-22 12:30] LABS: ACT+ - POC 575 Seconds (82-134)
[2025-05-22 12:44] LABS: Urine Red Blood Cell 0-2 /HPF (0-2); Urine Squamous Cell 0-2 /LPF (Few)
[2025-05-22 13:12] LABS: B.E. - POC -1.7 mmol/L; Glucose - POC 231 mg/dl (70-99); HCO3 - POC 23 mmol/L (21-28); Hematocrit - POC 45 % PCV (42-52); Hemodilution- POC No; Hemoglobin Calculated - POC 15.2; Ionized Calcium - POC 1.14 mmol/L (1.15-1.33); Lactate - POC < 0.30 mmol/L (0.36-0.75); O2 Saturation %Calculated-POC 99.9 % (94-98); PCO2 - POC 38 mmHg (35-48); PO2 - POC 342 mmHg (83-108); POC Comment CPB; Potassium - POC 4.4 mmol/L (3.5-5.1); Sodium - POC 139 mmol/L (136-145); Specimen Type - POC Arterial; pH - POC 7.39 (7.35-7.45)
[2025-05-22 13:13] LABS: ACT+ - POC 457 Seconds (82-134)
[2025-05-22 13:41] LABS: ACT+ - POC 481 Seconds (82-134)
[2025-05-22] MEDS: NOVOLOG FLEXPEN-LOW RESISTANCE SC (13:54)
[2025-05-22 14:09] LABS: ACT+ - POC 489 Seconds (82-134)
[2025-05-22 14:14] LABS: B.E. - POC 1.5 mmol/L; Glucose - POC 318 mg/dl (70-99); HCO3 - POC 27 mmol/L (21-28); Hematocrit - POC 39 % PCV (42-52); Hemodilution- POC Yes; Hemoglobin Calculated - POC 13.3; Ionized Calcium - POC 1.07 mmol/L (1.15-1.33); Lactate - POC 0.52 mmol/L (0.36-0.75); O2 Saturation %Calculated-POC 99.9 % (94-98); PCO2 - POC 43 mmHg (35-48); PO2 - POC 331 mmHg (83-108); POC Comment CPB; Potassium - POC 5.9 mmol/L (3.5-5.1); Sodium - POC 139 mmol/L (136-145); Specimen Type - POC Arterial; pH - POC 7.40 (7.35-7.45)
--- NOTE | 2025-05-22 14:23 | CM ---
Chart reviewed. Patient is in the OR today. Patient is independent of ADLS, lives with his in a 3 STH, 1 ERIC, 0 DME. Plan is for the patient to return home with CT Transitional RN. CM to follow
[2025-05-22 14:45] LABS: B.E. - POC -0.8 mmol/L; Glucose - POC 244 mg/dl (70-99); HCO3 - POC 25 mmol/L (21-28); Hematocrit - POC 40 % PCV (42-52); Hemodilution- POC Yes; Hemoglobin Calculated - POC 13.6; Ionized Calcium - POC 1.09 mmol/L (1.15-1.33); Lactate - POC 1.48 mmol/L (0.36-0.75); O2 Saturation %Calculated-POC 99.8 % (94-98); PCO2 - POC 42 mmHg (35-48); PO2 - POC 250 mmHg (83-108); POC Comment WARM; Potassium - POC 6.0 mmol/L (3.5-5.1); Sodium - POC 140 mmol/L (136-145); Specimen Type - POC Arterial; pH - POC 7.37 (7.35-7.45)
[2025-05-22 14:47] LABS: ACT+ - POC 142 Seconds (82-134)
[2025-05-22 14:57] LABS: B.E. - POC 0.8 mmol/L; Glucose - POC 198 mg/dl (70-99); HCO3 - POC 26 mmol/L (21-28); Hematocrit - POC 38 % PCV (42-52); Hemodilution- POC Yes; Hemoglobin Calculated - POC 13.1; Ionized Calcium - POC 0.97 mmol/L (1.15-1.33); Lactate - POC < 0.30 mmol/L (0.36-0.75); O2 Saturation %Calculated-POC 100.0 % (94-98); PCO2 - POC 42 mmHg (35-48); PO2 - POC 377 mmHg (83-108); POC Comment CPB; Potassium - POC 6.2 mmol/L (3.5-5.1); Sodium - POC 136 mmol/L (136-145); Specimen Type - POC Arterial; pH - POC 7.40 (7.35-7.45)
--- NOTE | 2025-05-22 15:11 | CON.INTV ---
Consultation
Consultation Request
Date/Time Consultation Requested: 05/22/2025 - 1454
Date/Time Consultation Performed: 05/22/2025 - 1509
Requesting Provider: Radha Valiente PA-C
Performing Provider: Dr. Khan
Reason for Consultation: CABG x3
Medical History
-
Chief Complaint: SOB
History of Present Illness:
60-year-old male with a past medical history of ROBBY on CPAP, testosterone deficiency, obesity, hyperlipidemia, hypertension, hypothyroidism and GERD who presented with palpitations + chest pain for 1 month prior to arrival.. Initial troponin
elevated at 2.23, and EKG showed T wave flattening in the inferolateral leads. He was started on heparin drip, and also given aspirin + metoprolol, and admitted to IVU with cardiology consulted. Patient diagnosed with NSTEMI. Echo on 05/18 showed
reduced LVEF at 37% with hypokinetic dickey in the anteroseptum, inferoseptum and inferior segments. Also mild-moderate MR.. Left heart catheterization performed on 05/18 showing multivessel CAD with CORRECTIONAL FACILITY NURSE of ostial�mid LAD and ulcerated stenosis in
the proximal RCA. Cardiothoracic surgery consulted and recommended surgical revascularization which the patient agreed to. Today, patient underwent CABG x 3 with left atrial appendage exclusion. There were no complications, and the patient was
transferred to the CVICU and Group Sales Representative service is now consulted for additional management/recommendations.
When I saw the patient, he was intubated on a CPAP trial on 01/15 at 40% FiO2, with VTe 390 cc, breathing at 15 breaths/min and PIP 11 cmH2O. Heart rate 87, BP via A-line 97/50, BP via NIBP 100/70 and saturating 94%. He has mediastinal chest tubes x
2+ left pleural chest tube x 1. Currently on insulin drip at 2.6 units/hr and Precedex at 0.1 mcg/kg/hr.
PMHx: Hypothyroidism, GERD, ROBBY on CPAP, R-thumb tendinitis, testosterone deficiency, obesity, DM type II, HLD, HTN
PSHx: Back surgery (2010), tonsillectomy, left inguinal hernia
Past Medical History
Past Medical History: Other (Above as per HPI)
Past Surgical History: Other (Above as per HPI)
Social History
Tobacco: Former Smoker (10 pack year Hx, quit in his 30s)
Alcohol: Occasional
Drug: None
Family History
Family History: Cancer (Father: lymphoma), Diabetes (Father and mother) and Other (Mother: pulmonary fibrosis)
Allergies / Home Medications
Allergies
Allergy/AdvReac Type Severity Reaction Status Date / Time
morphine Allergy Nausea Verified 05/17/25 20:55
Sulfa (Sulfonamide Allergy Rash Verified 05/17/25 20:55
Antibiotics)
Home Medications
�Medication �Instructions �Recorded �Confirmed �Last Taken �Type
levothyroxine 137 mcg tablet 175 mcg PO DAILY Thyroid 10/11/10 05/17/25 12/01/22 08:00 History
(Synthroid)
insulin aspart U-100 100 unit/mL 30 - 50 unit SC .DAILYATBREAKFAST 11/09/22 05/17/25 12/01/22 20:00 History
(3 mL) subcutaneous pen (Novolog Diabetes
FlexPen U-100 Insulin aspart)
insulin glargine 100 unit/mL 40 unit SC HS Diabetes 11/09/22 05/17/25 12/01/22 20:00 History
subcutaneous solution (Lantus 27 units
U-100 Insulin)
Medical Marijuana 1 drp PO HS Pain 11/13/22 05/17/25 11/28/22 21:00 History
ascorbic acid (vitamin C) 500 mg 500 mg PO DAILY Supplement 11/13/22 05/17/25 11/25/22 History
tablet
cyanocobalamin (vitamin B-12) 1 tab PO DAILY 11/13/22 05/17/25 11/25/22 History
magnesium 1 tab PO DAILY Supplement 11/13/22 05/17/25 11/24/22 History
multivitamin 1 tab PO DAILY Supplement 11/13/22 05/17/25 11/24/22 History
Prilosec OTC 20 mg PO DAILY Gastrointestinal 05/17/25 05/17/25 05/17/25 09:00 History
Issue
tadalafil 10 mg tablet 10 mg PO DAILY Urinary Issue 05/17/25 05/17/25 Unknown History
testosterone 30 mg/actuation (1.5 1 pump topical DAILY Hormonal Agent 05/17/25 05/17/25 Unknown History
mL) transderm solution metered pump
Review of Systems
-
Unable to Obtain full review of systems at this time due to: Patient Intubation
Vitals / Labs / Diagnostic Testing
Vital Signs
Temp Pulse Resp BP Pulse Ox
98.0 F 59 18 133/87 96
05/22/25 07:04 05/22/25 09:00 05/22/25 07:04 05/22/25 08:11 05/22/25 07:04
Laboratory Results
05/22/25
05:18
APTT 110.6 H
Diagnostic Testing:
Physical Exam
-
HEENT: Normocephalic, Anicteric and Other (ETT in place)
Cardiovascular: S1/S2, Murmur (HAJA heard across precordium), Rub and Peripheral Edema (negative)
Respiratory: Wheeze (negative), Rales (negative), Rhonchi (negative), Non-Labored Respirations and Other (Mechanical breath sounds heard bilaterally)
GI: Soft, Non Distended, Non Tender and Normal Bowel Sounds
Neurology: Tremors (negative) and Other (Sedated)
Skin: Warm and Dry
General: Respiratory Distress (negative), Comfortable, Chills (negative) and Sweats (negative)
Assessment
-
Assessment: 60-year-old male with a past medical history of ROBBY on CPAP, testosterone deficiency, obesity, hyperlipidemia, hypertension, hypothyroidism and GERD who presented with palpitations + chest pain for 1 month prior to arrival.. Initial
troponin elevated at 2.23, and EKG showed T wave flattening in the inferolateral leads. He was started on heparin drip, and also given aspirin + metoprolol, and admitted to IVU with cardiology consulted. Patient diagnosed with NSTEMI. Echo on 05/18
showed reduced LVEF at 37% with hypokinetic dickey in the anteroseptum, inferoseptum and inferior segments. Also mild-moderate MR.. Left heart catheterization performed on 05/18 showing multivessel CAD with CORRECTIONAL FACILITY NURSE of ostial�mid LAD and ulcerated
stenosis in the proximal RCA. Cardiothoracic surgery consulted and recommended surgical revascularization which the patient agreed to. On 05/22/2025, patient underwent CABG x 3 with left atrial appendage exclusion. There were no complications, and
the patient was transferred to the CVICU and Group Sales Representative service is now consulted for additional management/recommendations.
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
Impression:
#Multivessel CAD with CORRECTIONAL FACILITY NURSE of ostial�mid LAD and eccentric ulcerated 80% proximal stenosis in the RCA complicated by NSTEMI s/p CABG x 3+ left atrial appendage exclusion (POD #0)
#DM type II c/b hyperglycemia
#Hypertension
#Hyperlipidemia
#Hypothyroidism
#ROBBY on CPAP
Plan:
Ventilator settings reviewed
FiO2 will be weaned to maintain SpO2 >90-94%
Minute ventilation will be adjusted
Arterial blood gases will be monitored
Spontaneous breathing trial will be attempted with hopeful extubation after anesthesia/sedation wear off; if patient is lethargic at time of extubation then transition to CPAP until mental status improves
prn nebulized bronchodilators - not currently bronchospastic
Pulmonary artery catheter parameters will be followed
Pressors/antihypertensive/inotropes/diuretics will be provided as needed
Maintain MAP>65
Replete electrolytes with K>4, Mg>2
Monitor chest tube output (mediastinal x 2+ left pleural x 1)
Monitor hemoglobin
Monitor platelet count and coags
Transfuse blood products as needed to maintain Hb>7g/dL, plt>50k (given post-operative status)
CT surgery managing chest tubes
Monitor blood sugar to maintain euglycemia with goal BG 110-140
Insulin drip per protocol
Aspiration precautions
VAP prevention protocol
DVT prophylaxis
Early nutrition
Early mobilization
Critical care statement: A total of 46 minutes of critical care time was provided for this patient today. This includes management of ventilator, spontaneous breathing trial, arterial blood gases, pressors, of unstable vital signs, evaluation of the
patient at bedside, reviewing the patient's pertinent medical records including radiographs, microbiology, laboratory evaluations, and discussion with primary team and critical care nursing.
[2025-05-22 15:13] LABS: B.E. - POC -0.7 mmol/L; Glucose - POC 199 mg/dl (70-99); HCO3 - POC 25 mmol/L (21-28); Hematocrit - POC 37 % PCV (42-52); Hemodilution- POC Yes; Hemoglobin Calculated - POC 12.5; Ionized Calcium - POC 1.24 mmol/L (1.15-1.33); Lactate - POC 1.65 mmol/L (0.36-0.75); O2 Saturation %Calculated-POC 99.8 % (94-98); PCO2 - POC 42 mmHg (35-48); PO2 - POC 223 mmHg (83-108); Potassium - POC 4.7 mmol/L (3.5-5.1); Sodium - POC 142 mmol/L (136-145); Specimen Type - POC Arterial; pH - POC 7.38 (7.35-7.45)
[2025-05-22 15:43] LABS: Glucose - Point of Care 174 mg/dl (70-99)
--- NOTE | 2025-05-22 15:48 | W.PN.CT.SURG ---
CT Surgery Operative Note
-
CARDIAC SURGERY OPERATIVE REPORT
Preoperative Diagnosis: Multivessel Coronary Artery Disease with NSTEMI
Postoperative Diagnosis: Same
Procedure(s) Performed:
1. Standard Sternotomy with Aortic and Right Atrial Cannulation
2. Internal Mammary Artery Harvesting, Left
3. Coronary artery bypass grafting x 3 (In situ KRUSE to LAD, Ao to RSVG to PDA, Ao to RSVG to RI)
4. Endoscopic vein harvesting of right saphenous vein
5. Transesophageal echocardiography
6. Placement of Temporary Ventricular Pacing Wires
7. Left atrial appendage exclusion
Date of Surgery: 05/22/2025
Comorbidities:
1. Type II DM
2. Hypertension
3. Hyperlipidemia
4. Hypothyroidism
Attending Surgeon: Diana Mazariegos MD, MPH
Assistants: Javy Palomares PA-C (present and necessary to first front ventilator, endoscopic vein harvest, retraction, suction, exposure, suture management, and wound closure under my direction)
Anesthesiology: Leodan Chavez MD and Margret Colbert CRNA
Scrub and Circulating RNs: Niko Anders, RN, Oracio Noriega RN
Bulb Weeder: Gilberto Pope CCP
Anesthesia: GETA
EBL: per perfusion records
Products: None
CPB Time: 95 minutes
Aortic Cross Clamp Time: 81 minutes
Indication(s) for Procedures: NSTEMI, multivessel coronary artery disease with symptoms
Conduit(s) Quality:
KRUSE -artery was small however good flow and pulse throughout
RSVG -mildly sclerotic, appropriate caliber
Target(s) Quality:
RCA/PDA -2 mm vessel, no significant plaque or hardening
RI -vessel was of decent size, at least 1.5 to 2 mm
LAD -partially intramyocardial, diminutive vessel proximally 1 mm distally
Findings: The preoperative ventricular function was 40-45% with mild to moderate MR. Postoperative EF improved 50-55% with no regional wall motion abnormalities, mild MR. The KRUSE was harvested in a skeletonized fashion. Left atrial appendage was
notably small, 35 mm clip placed. PDA target with good size with good runoff, RI of decent size with good runoff. LAD was notably diminutive and partially intramyocardial in the mid to distal LAD. We were able to find a good target with an easy
pass of at least a 1 mm probe distally. Following bypass grafting, test dose cardioplegia was given down each distal and confirmed patency and hemostasis. Each distal was probed both proximally and distally to confirm disease and patency,
respectively. Upon disconnecting from bypass heart was notably more vigorous and in normal sinus rhythm which was maintained through the conclusion of the case.
Description of Procedure: The patient was taken to the operating room. Their identity and procedure to be performed were verified and they were positioned supine on the operating table. Induction via general anesthesia with endotracheal intubation
was performed and central venous access and arterial monitoring were inserted. A preoperative transesophageal echocardiogram was performed to assess cardiac function and valvular function. The patient was then prepped and draped from chin to feet in
a sterile fashion. A preoperative time-out was performed with all members of the team present. A midline chest incision was performed along with median sternotomy. Simultaneous endoscopic access of the right lower extremity for saphenous vein
harvest was obtained along with administration of an initial 5,000 units of IV heparin. A RulTract sternal retractor was positioned to exposure the left internal mammary bed. The mammary was harvested and found to have good flow. A bulldog clamp was
applied to the distal end of the mammary after dividing it. It was sprayed topically with papaverine and replaced back into the left hemithorax. The RulTract was exchanged for a median sternal retractor. The innominate vein was isolated. Full
heparinization was given (a total of 55,000 units). We created a pericardial well. The aortic cannulation site was chosen where it was soft, pliable, and free of calcium. Cannulation was performed with an arterial cannula in the ascending aorta and
a triple-stage venous cannula through the right atrial appendage. The arterial cannula line had an appropriate bounce and correlating pressures with test dosing. Next, a root vent/antegrade cannula was inserted into the ascending aorta. The ACT was
confirmed to be over 400 and retrograde autologous priming was performed before commencing cardiopulmonary bypass. The pulmonary artery was away from the aorta to facilitate a clamp site. The aortic cross-clamp was placed after decreasing
the flow on the bypass and mean arterial pressure. A total of 1.2L initial dose of antegrade Del-Nido cardioplegia solution was given and planned for re-dosing every 75 minutes as necessary. There was rapid electro-mechanical arrest of the heart at
320 cc of cardioplegia. The left ventricle was observed for distention on echocardiogram and manual palpation. Cold slush was placed into a sponge and topically on the RV while we systemically cooled to 34 degrees centigrade.
I positioned the heart to expose the left atrial appendage which was noted to be small therefore a 35mm atrial clip was used. I then positioned the heart to expose the distal right coronary at the posterior descending artery. A [place]of bay blade was
used to expose the coronary and perform the arteriotomy. Coronary Allred scissors were used to enlarge the incision. The saphenous vein was trimmed and beveled to an appropriate size. The distal anastomosis was performed using 7-0 prolene in an
end-to-side fashion. Antegrade cardioplegia was administered into the graft. Appropriate hemostasis and flow were confirmed. The graft was measured for length to the aorta and cut. A suitable site on the ramus intermedius was chosen. We dissected
and prepared the distal target in a similar fashion. An end-to-side anastomosis was created with a 7-0 prolene. Antegrade cardioplegia was administered into the graft. Appropriate hemostasis and flow were confirmed. The graft was measured for length
to the aorta and cut. A suitable target on the distal left anterior descending was identified. We dissected and prepared the distal target in a similar fashion. We retrieved the KRUSE from the chest and created a pericardial opening while being
cognizant of the phrenic nerve to facilitate the course of the mammary. The distal end of the mammary was prepped and opened to size. We verified orientation and length of the ARABELLA and found brisk flow. A [id number]-[id number] anastomosis was created with a
7-0 prolene. We temporarily released the bulldog clamp on the mammary to inspect flow. Perfusion to the LAD territory was visualized and hemostasis was confirmed. The bulldog clamp was replaced on the mammary. The heart was filled and the root was
distended with antegrade cardioplegia to make final assessment of graft length and orientation. We created 2 aortotomies using a #11 blade then a 4.0mm aortic punch. The proximal anastomoses were created in an end-to-side fashion using 6-0 prolene.
At the the same time, we re-warmed to 36.5 degrees centigrade. The bulldog clamp was removed from the mammary. Temporary bipolar ventricular pacing wires were placed on the base of the right ventricle. The patient was placed in a Trendelenburg
position and flows on bypass were lowered. The aortic cross clamp was removed and flows were slowly brought back up. All bypass grafts were inspected and were free from kinking or twisting. The distal and proximal anastomoses appeared hemostatic.
Once transesophageal echocardiography appeared satisfactory for de-airing, the flows were temporarily lowered for root vent removal. After verifying acceptable parameters, we initiated weaning from cardiopulmonary bypass. Once we were off
cardiopulmonary bypass, the venous cannula was clamped and removed. A test dose of protamine was administered and the patient was monitored for any adverse reaction before resuming protamine. Once half of the protamine dose was delivered, pump
suckers were turned off and the systolic blood pressure was lowered for aortic decannulation. The aortic cannula was removed and pursestrings were tied down. All cannulation sites were oversewn with a 4-0 prolene. The mammary bed was inspected and
hemostasis was confirmed. Once the mediastinum was hemostatic, 19Fr Zachery drain was placed in the left pleural cavity and two 24Fr Zachery drains were placed within the pericardium. The sternum was approximated with 4 #7 single and 3 #8 double
stainless steel wires. Fascia was approximated with #1 vicryl suture. The subcutaneous, dermis and epidermis were closed in layers in a running fashion. The skin wound was cleansed and dressed.
All instrument, sponge, and needle counts were confirmed to be correct x 2 at the end of the operation. The patient was transferred to the cardiac intensive care unit in critical but stable condition.
Jenny, Dr. Diana Mazariegos, was present, scrubbed for, and performed all critical elements of this procedure.
Diana Mazariegos MD, MPH
Cardiothoracic Surgeon
[facility]
This operative dictation was created using the [employer] dictation system. Please excuse any grammatical, typographical, or 'sound alike' errors
[2025-05-22 15:57] LABS: B.E. -0.8 mmol/L; HCO3 24.9 mmol/L (21-28); O2 Saturation % 97.3 % (94-98); PCO2 44 mmHg (35-48); PO2 82 mmHg (83-108); Potassium 4.5 mMOL/L (3.5-5.1); Sodium 135 mMOL/L (136-145)
[2025-05-22 16:07] LABS: Hematocrit 41.1 % (39.0-52.0); Hemoglobin 14.1 g/dL (13.0-18.0); Platelet Count 230 10^3/uL (130-400)
[2025-05-22 16:13] LABS: INR 1.48; PT 18.2 Sec (11.4-14.6)
[2025-05-22 16:14] LABS: APTT 31.2 Sec (23.4-35.0)
[2025-05-22] MEDS: ANCEF 10 IV ×2 (16:16)
[2025-05-22] MEDS: NOVOLOG FLEXPEN SC ×2 (16:16→16:33)
[2025-05-22] MEDS: NSS 500 IV (16:16)
[2025-05-22 16:17] LABS: Blood Urea Nitrogen 15 mg/dl (9-20); Estimated Creatinine Clearance 106 ml/min; Glucose 176 mg/dl (70-99); Magnesium 2.7 mg/dl (1.6-2.3)
[2025-05-22] MEDS: LIPITOR PO (16:17)
[2025-05-22] MEDS: NEURONTIN PO (16:17)
[2025-05-22] MEDS: TYLENOL PO ×2 (16:17→20:20)
[2025-05-22] MEDS: LR 250 ML IV (16:17)
[2025-05-22] MEDS: PACERONE PO (16:17)
--- NOTE | 2025-05-22 16:30 | PTCARENOTE ---
pt received from CVOR @~1540, sedated on Precedex gtt, RASS -5. SR w/ RBBB on the monitor, HR 70-80s. V wire set to VVI 40/19. SBP 90-130s, Levophed gtt titrated as ordered, MAP goal >65. CVP ~5. palpable pulses, no edema. pt mechanically
ventilated, ETT #8.0, 22@lip. SIMV 14, TV 500, PEEP 5, FIO2 40%. 93-96% POX. lungs clear anteriorly. CTx3, no air leak or crepitus noted. pt abdomen round, s/n. hypoactive BS. Vang in place, clear yellow urine. sternal incision YADIRA, approximated.
chest tube dressing c/d/i. 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 RLE LULA in place. L radial Kallie flushed, zeroed, and calibrated. PIV. insulin gtt running as ordered. lab work drawn, EKG performed, CXR completed. see worklist for VS, I&O, and assessment.
--- NOTE | 2025-05-22 16:50 | W.PN.CARDCBS ---
Addendum entered and electronically signed by Danny Holliday MD 05/22/25 17:05:
I saw and examined the patient.
The COLLEGE PRESIDENT or PA's note was reviewed and I agree with the note.
Comment: General: Sedate and intubated
Neck: Supple, no JVD, HJR, carotids +2 B/L, no bruits bilaterally.
Heart: Non displaced PMI, RRR, no murmurs, No S3, S4, no rubs.
Lungs: scattered rhonchi
Sternal dressings noted
Extremities: No clubbing, cyanosis or edema bilaterally.
Neuro: Sedate
Stable cardiology status status post CABG. Hopefully extubate later today. Discussed with CT surgery and nursing.
Original Note:
Today's Communication / Plan
-
continue post op care
Impression / Plan
-
Primary Inspector Wire Products: none prior to admission
Assessment:
Presentation with epigastric pain with exertion
NSTEMI, trop 2
Multivessel coronary disease by cath including LAD and ulcerated RCA status post CABG x 3 In situ KRUSE to LAD, Ao to RSVG to PDA, Ao to RSVG to RI and LINDSEY exclusion 05/22/25
DM2
Hypothyroidism
Obesity
ROBBY
Laminectomy x2
Remote former smoker
ECHO 05/18/25: EF 37% by volumetric assessment and 47% by Alexander's, mild to moderate MR
Plan:
- Patient is status post CABG x 3 In situ KRUSE to LAD, Ao to RSVG to PDA, Ao to RSVG to RI and LINDSEY exclusion 05/22/25
- Intubated, sedated
- off pressors
- EKG SR with inferolateral T wave inversions, more pronounced compared to prior. follow
- hgb 14.1. on asa, plavix
- LDL 177. He reports a history of significantly worsened blood sugars while on statin therapy in the past. We discussed retrialing statin therapy in setting of WI and he is agreeable, started lipitor 80mg QPM. will need to follow blood sugars
closely. hgbA1c 7.4%
- was on toprol 12.5mg daily preop. Eventual GDMT of cardiomyopathy as able. EF 37% by preop echo, 40-45% by ANKIT intraop.
- d/w CT surgeon, nursing
Progress Note - Inspector Wire Products
Subjective
Date of Service: May 22, 2025
intubated, sedated
Objective
Labs:
05/22/25 15:44
05/22/25 15:44
Labs
Hgb 14.1 g/dL (13.0-18.0) 05/22/25 15:44
Hct 41.1 % (39.0-52.0) 05/22/25 15:44
Plt Count 230 10^3/uL (130-400) 05/22/25 15:44
PT 18.2 Sec (11.4-14.6) H 05/22/25 15:44
INR 1.48 05/22/25 15:44
APTT 31.2 Sec (23.4-35.0) 05/22/25 15:44
Sodium 138 mmol/L (135-145) 05/22/25 05:18
Potassium 4.5 mmol/L (3.5-5.1) 05/22/25 05:18
BUN 15 mg/dl (9-20) 05/22/25 15:44
Creatinine 0.9 mg/dL (0.7-1.3) 05/22/25 15:44
Glucose 176 mg/dl (70-99) H 05/22/25 15:44
Vital Signs and I&O:
Vital Signs
Temp Pulse Resp BP Pulse Ox
98 F 82 14 90/67 96
05/22/25 16:00 05/22/25 16:20 05/22/25 16:20 05/22/25 16:00 05/22/25 16:20
Vital Signs
Temp Pulse Resp BP Pulse Ox
98 F 82 14 90/67 96
05/22/25 16:00 05/22/25 16:20 05/22/25 16:20 05/22/25 16:00 05/22/25 16:20
Intake & Output
05/20/25 05/21/25 05/22/25 05/23/25
07:59 07:59 07:59 07:59
Intake Total 1440 / 1440 480 / 480 496 / 496 91.3 / 91.3
Output Total 235 / 235
Balance 1440 / 1440 480 / 480 496 / 496 -143.7 / -143.7
Physical Exam
Physical Exam
GEN: No distress, intubated, sedated
HEENT: supple, mmm
LUNGS: CTA B/L, no wheezes/rales
CV: Reg, S1/S2, no murmur
ABD: soft, hypoactive BS, ND
EXT: No cyanosis, clubbing, edema
NEURO: sedated
SKIN: Warm, pink, dry. No rash. Sternotomy dressing c/d/i. CTs in place
SONYA: jayy
[2025-05-22 17:11] LABS: Glucose - Point of Care 151 mg/dl (70-99)
[2025-05-22 17:58] LABS: Glucose - Point of Care 130 mg/dl (70-99)
[2025-05-22] MEDS: CARDENE 200 IV (18:02)
--- NOTE | 2025-05-22 18:08 | PTCARENOTE ---
pt alert, able to follow commands, COUGHLIN. pt placed on CPAP trial @1805, 95% POX. shakes head no to pain and nausea.
[2025-05-22 18:38] LABS: B.E. - POC -0.4 mmol/L; Blood Urea Nitrogen - POC 12 mg/dl (3-120); Chloride - POC 108 mmol/L (96-111); Creatinine - POC 0.95 mg/dl (0.3-1.0); Glucose - POC 151 mg/dl (70-99); HCO3 - POC 25 mmol/L (21-28); Hematocrit - POC 48 % PCV (42-52); Hemodilution- POC No; Hemoglobin Calculated - POC 16.4; Ionized Calcium - POC 1.14 mmol/L (1.15-1.33); Lactate - POC 1.55 mmol/L (0.36-0.75); O2 Saturation %Calculated-POC 91.5 % (94-98); PCO2 - POC 42 mmHg (35-48); PO2 - POC 63 mmHg (83-108); Potassium - POC 4.2 mmol/L (3.5-5.1); Sodium - POC 143 mmol/L (136-145); Specimen Type - POC Arterial; pH - POC 7.38 (7.35-7.45)
[2025-05-22] MEDS: DILAUDID 0.5 MG IV (18:46)
--- NOTE | 2025-05-22 18:51 | RESPNOTE ---
Respiratory: patient extubated at 1842 without incident no stridor.
[2025-05-22 19:09] LABS: Glucose - Point of Care 131 mg/dl (70-99)
[2025-05-22 20:14] LABS: Glucose - Point of Care 152 mg/dl (70-99)
[2025-05-22] MEDS: OFIRMEV 100 IV (20:17)
[2025-05-22] MEDS: SENOKOT PO (20:18)
[2025-05-22] MEDS: ZOFRAN 4 MG IV (20:44)
[2025-05-22 20:53] LABS: Hematocrit 42.3 % (39.0-52.0); Hemoglobin 14.6 g/dL (13.0-18.0); Platelet Count 305 10^3/uL (130-400)
--- NOTE | 2025-05-22 21:00 | PTCARENOTE ---
Assumed care of pt from dayshift RN. Walking rounds completed. Pt AAOx3. Resting in bed s/p CVOR. SR on the tele monitor. HR 80s. +RUB. Temporary epicardial v-wire set to backup 40/19. BP stable. 100-120s/60s. CVP ~4-10. Palpable pulses throughout.
No edema noted at this time. Pt on 6 L NC. POX 94-98%. Lung sounds diminished in B/L bases. CTx3 (L pleural x1 and Mediastinal x2) to -20 suction, no airleak noted at this time, and output WNL. Deep breathing and IS encouraged. Abdomen nontender.
Hypoactive BS. Pt c/o feeling like they have to 'burp' and chest pressure. PA aware. EKG completed and IV Tylenol administered - see MAR. All surgical sites stable. Right IJ cordis w/ SLIC/CVP port, left radial a-line, and PIV intact. All lines
leveled, zeroed, and flushed. Glycemic protocol followed. Family updated at the bedside. See worklist for full nursing assessment and interventions. Call astorga within reach.
[2025-05-22] MEDS: BACTROBAN 2% OINTMENT 1 APPLIC NASAL (21:05)
[2025-05-22 22:01] LABS: Glucose - Point of Care 163 mg/dl (70-99)
[2025-05-22] MEDS: PACERONE 200 MG PO (22:18)
[2025-05-22] MEDS: NEURONTIN 100 MG PO (22:18)
[2025-05-22] MEDS: ANCEF 5 IV (22:19)
[2025-05-22] MEDS: LOW STRENGTH ASPIRIN 81 MG PO (22:19)
[2025-05-22 23:59] LABS: Glucose - Point of Care 152 mg/dl (70-99)
[2025-05-23] VITALS (26 sets, daily range): BP systolic 96–136; BP diastolic 57–84; PULSE 76; O2SAT 96–97; BMI 31.1
--- NOTE | 2025-05-23 00:05 | PTCARENOTE ---
Pt reassessed. No acute changes in assessment. Pt is SR on tele monitor. Epicardial wires unchanged. HR 80s. BP stable. CVP ~1-5. Pt on 4 L NC. POX 96%. CTx3 assessment unchanged. Vang catheter intact and draining yellow urine. All surgical sites
stable. Lines leveled, zeroed, and flushed. Pt reports some relief from 'burping' feeling. Tolerated PM meds and ice chips. Pt repositioned in bed. Glycemic protocol followed. Call astorga within reach.
[2025-05-23 01:08] LABS: Glucose - Point of Care 138 mg/dl (70-99)
[2025-05-23] MEDS: DILAUDID 0.5 MG IV (01:37)
[2025-05-23 02:13] LABS: Glucose - Point of Care 139 mg/dl (70-99)
[2025-05-23 03:26] LABS: Glucose - Point of Care 128 mg/dl (70-99)
[2025-05-23 03:42] LABS: Hematocrit 42.9 % (39.0-52.0); Hemoglobin 14.9 g/dL (13.0-18.0); Mean Corp Hgb Conc. 34.7 g/dL (33.0-37.0); Mean Corpuscular Volume 86.8 fL (80.0-94.0); Platelet Count 272 10^3/uL (130-400); Red Cell Dist. Width 13.0 % (11.5-14.5)
[2025-05-23] MEDS: TORADOL 15 MG IV (03:48)
[2025-05-23] MEDS: ULTRAM 25 MG PO (03:54)
[2025-05-23 04:04] LABS: Blood Urea Nitrogen 13 mg/dl (9-20); Calcium 8.9 mg/dl (8.4-10.2); Carbon Dioxide 24 mmol/L (22-30); Chloride 109 mmol/L (98-107); Estimated Creatinine Clearance 119 ml/min; Glucose 133 mg/dl (70-99); Magnesium 2.1 mg/dl (1.6-2.3); Potassium 4.9 mmol/L (3.5-5.1); Sodium 138 mmol/L (135-145); eGFR > 60.00
[2025-05-23 04:07] LABS: Glucose - Point of Care 121 mg/dl (70-99)
--- NOTE | 2025-05-23 04:15 | W.PN.CT ---
Addendum entered and electronically signed by Diana Mazariegos MD 05/23/25 10:59:
I reviewed ECG with noted ST changes in V leads. This has been improving throughout post op course. He is clinically well and progressing as expected. I am not surprised given small intramuscular LAD requiring unroofing. Will continue to monitor.
Original Note:
Today's Communication / Plan
-
-pod #1
-no issues overnight
-mVO2 63.2. drips: insulin, Cardene 2.5
-CT outputs: 2 meds 110/140, L pleur 55/70 in 12/24 hrs
-suspected pericarditis/+ rub- consider Colchicine. Gave 1 Toradol in am
-abnormal ECG - follow
-deline
-d/c Vang
-continue insulin
-pt states that gets no pain relief with Roxicodone, but Ultram has worked in the past - will switch to prn Ultram
-current meds (ASA, Plavix, Lipitor, Lopressor, Amio, Protonix)
-encourage IS, OOB
Assessment / Plan
-
- NSTEMI, mv-CAD - s/p CABG x3 (In situ KRUSE to LAD, Ao to RSVG to PDA, Ao to RSVG to RI); LAAE #[address] Mazariegos on 05/22/25, pod #1
- Intraop ANKIT: LVEF preop was 40-45% with mild to moderate MR. Postoperative EF improved 50-55% with no regional wall motion abnormalities, mild MR.
- Type II DM
- Hypertension
- Hyperlipidemia
- Hypothyroidism
- Class 1 obesity, BMI 30
- ROBBY, uses CPAP
- Former tobacco, quit 30 yrs ago
- Laminectomy x2
- Inguinal hernia repair
- Acute postop pulmonary insufficiency/atelectasis
- Suspected acute postop pericarditis/+rub
- Acute postop hypovolemia with subsequent hypervolemia
Discussed patient care with: Nursing and Care Team
Subjective
-
Date of Service: May 23, 2025
Objective Data
-
PT 18.2 Sec (11.4-14.6) H 05/22/25 15:44
INR 1.48 05/22/25 15:44
APTT 31.2 Sec (23.4-35.0) 05/22/25 15:44
Vital Signs
Vital Signs
Temp Pulse Resp BP Pulse Ox
99.2 F 83 16 112/70 96
05/23/25 02:00 05/23/25 02:00 05/23/25 02:00 05/23/25 00:00 05/23/25 02:00
CT Intake/Output/Weight
05/22/25 05/22/25 05/23/25
06:59 18:59 06:59
Intake Total 496 / 496 406.8 / 596.5 189.7 / 596.5
Output Total 595 / 1295 700 / 1295
Balance 496 / 496 -188.2 / -698.5 -510.3 / -698.5
SaO2: 96
Physical Exam
-
General: Awake and AOx3
Cardiovascular: Regular rate & rhythm, No Murmurs and Rub
Respiratory: Decreased Breath Sounds
Sternum: Stable
Incision: Clean, Dry and Intact
Extremities: No Edema (hard to feel DPs b/l)
Abdomen: soft, nontender, nondistended, + decreased bowel sounds
Data Reviewed
-
Lab Results: Results Reviewed
Medications: Active Meds Reviewed
Chest X-Ray: Report Reviewed and Image Reviewed
ECG: Report Reviewed and Image Reviewed
[2025-05-23] MEDS: NOVOLIN R INSULIN INFUSION 100 IV ×2 (04:50→08:56)
--- NOTE | 2025-05-23 05:00 | PTCARENOTE ---
Pt SR on the tele monitor. HR 80s. V-wire unchanged. BP stable. Pt 96% on 2 L NC. CTx3 assessment unchanged. Vang catheter intact and draining yellow urine. All surgical sites stable. Labs drawn and sent. EKG completed. Based on labwork - SLIC and
a-line dc'd per CTPA. See MAR for pain medication administration. Renetta on hold and ultram ordered per pt request. Pt repositioned. Call astorga within reach.
[2025-05-23 06:14] LABS: Glucose - Point of Care 126 mg/dl (70-99)
[2025-05-23] MEDS: SYNTHROID 175 MCG PO (06:16)
[2025-05-23] MEDS: ANCEF 5 IV ×2 (06:16→13:53)
[2025-05-23] MEDS: TYLENOL 975 MG PO ×2 (06:16→13:31)
[2025-05-23] MEDS: FLEXERIL 5 MG PO ×2 (07:19→19:24)
--- NOTE | 2025-05-23 07:49 | PTCARENOTE ---
Patient received from lining vamper resting in bed, c/o moderate sternal pain, medicated for such (see MAR). NSR via cm, SaO2 @ 97% on 2lnc. RIJ Cordis w/kvo infusing. Insulin gtt infusing peripherally, titrating per glycemic protocol. L pleural chest
tube to pleurevac @ -20cm suction, mediastinal chest tubes x 2, Y-connected to separate pleurevac, also to -20cm suction - no air leaks appreciated. All procedural sites stable. Patient assisted oob to chair x 2 assist, tolerated well. Breakfast
ordered. Patient updated to plan of care for the day, in agreement. See work list for full assessment and interventions performed.
--- NOTE | 2025-05-23 07:54 | PN.DE.MGMTRT ---
Insulin Management
- -
05/23/2025: Diabetes Management Consult
60 year old male with PMH: ROBBY on CPAP, HTN, HLD, Testosterone deficiency, Obesity, hypothyroidism and GERD who presented with palpitations + chest pain for 1 month prior to arrival--> NSTEMI-->Left heart catheterization --> multivessel CAD,
patient underwent CABG x 3 with left atrial appendage exclusion.
Pt awake, alert, oriented, sitting up in chair, offers no complaints, able to discuss diabetes care plan
Prior to admission was taking Lantus 40-50 units @HS, SoloStar 30-35 units AC and uses Dexcom G7 CGM for glucose monitoring at home. and Dtr at bedside to collaborate out patient medications. Emphasized to both patient and that Lantus is a
long acting insulin and should be one steady dose and not be taken on a sliding scale.
Currently on the Critical Care Glycemic protocol, glucose range 119 to 139 over night, receiving 3.5 to 5 units of insulin/hr
Plan to continue insulin infusion today, will reassess tomorrow for readiness to transition off drip to SQ insulin
Discussed with Nurse. Will cont to monitor
Diabetes History
- -
Type of Diabetes: 2 requiring insulin
Pre-Admission Diabetes Regimen
05/22/25 05/23/25
15:44 03:24
Creatinine 0.9 0.8
Lab Results
Hemoglobin A1c 7.4 % (4.0-5.6) H 05/18/25 03:22
Insulin Pump Settings
IP Diabetes Regimen
05/22/25 05/22/25 05/22/25
15:42 15:44 17:10
Glucose 176 H
POC Glucose 174 H 151 H
05/22/25 05/22/25 05/22/25
17:57 19:08 20:12
Glucose
POC Glucose 130 H 131 H 152 H
05/22/25 05/22/25 05/23/25
22:00 23:58 01:07
Glucose
POC Glucose 163 H 152 H 138 H
05/23/25 05/23/25 05/23/25
02:11 03:24 04:06
Glucose 133 H
POC Glucose 139 H 128 H 121 H
05/23/25
06:13
Glucose
POC Glucose 126 H
Meal type: Dinner
Patient Education
[2025-05-23 08:04] LABS: Glucose - Point of Care 119 mg/dl (70-99)
--- NOTE | 2025-05-23 08:17 | W.PN.INTV ---
Today's Communication / Plan
Recommendations
Up OOB as tolerated
Pain control
Encourage incentive spirometer q1hr while awake
prn bronchodilators (not currently bronchospastic)
Goal BG 110�140; wean off insulin drip per protocol
Once transferred to CVICU�telemetry status then our service will sign off at that time.
Assessment
-
Assessment: 60-year-old male with a past medical history of ROBBY on CPAP, testosterone deficiency, obesity, hyperlipidemia, hypertension, hypothyroidism and GERD who presented with palpitations + chest pain for 1 month prior to arrival.. Initial
troponin elevated at 2.23, and EKG showed T wave flattening in the inferolateral leads. He was started on heparin drip, and also given aspirin + metoprolol, and admitted to IVU with cardiology consulted. Patient diagnosed with NSTEMI. Echo on 05/18
showed reduced LVEF at 37% with hypokinetic dickey in the anteroseptum, inferoseptum and inferior segments. Also mild-moderate MR.. Left heart catheterization performed on 05/18 showing multivessel CAD with LEAD INFORMATICA DEVELOPER of ostial�mid LAD and ulcerated
stenosis in the proximal RCA. Cardiothoracic surgery consulted and recommended surgical revascularization which the patient agreed to. On 05/22/2025, patient underwent CABG x 3 with left atrial appendage exclusion. There were no complications, and
the patient was transferred to the CVICU and Church Supervisor service is now consulted for additional management/recommendations.
Chronic conditions PHYSICIAN'S AIDE: Hypothyroidism, GERD, ROBBY on CPAP, R-thumb tendinitis, testosterone deficiency, obesity, DM type II, HLD, HTN
Impression:
#Multivessel CAD with LEAD INFORMATICA DEVELOPER of ostial�mid LAD and eccentric ulcerated 80% proximal stenosis in the RCA complicated by NSTEMI s/p CABG x 3+ left atrial appendage exclusion (POD #1)
#DM type II c/b hyperglycemia
#Hypertension
#Hyperlipidemia
#Hypothyroidism
#ROBBY on CPAP
Plan:
Patient successfully extubated on evening of 05/22/2025 and is currently on room air breathing comfortably, saturating 94-95%
Maintain SpO2 >90-94%
prn nebulized bronchodilators - not currently bronchospastic
If pt uses CPAP at home and is ok wearing it here, then would place him onto CPAP with sleep, or alternatively he can have someone bring in his own machine for nighttime use
Pressors/antihypertensive/inotropes/diuretics will be provided as needed
Maintain MAP>65
Replete electrolytes with K>4, Mg>2
Monitor chest tube output (mediastinal x 2+ left pleural x 1 - pleural chest tube to be removed today)
Monitor hemoglobin
Monitor platelet count and coags
Transfuse blood products as needed to maintain Hb>7g/dL, plt>50k (given post-operative status)
CT surgery managing chest tubes
Monitor blood sugar to maintain euglycemia with goal BG 110-140
Insulin drip per protocol
Aspiration precautions
DVT prophylaxis
Early nutrition
Early mobilization
Once transferred to CVICU�telemetry status then our service will sign off at that time.
Critical care statement: A total of 38 minutes of critical care time was provided for this patient today. This includes management of ventilator, spontaneous breathing trial, arterial blood gases, pressors, of unstable vital signs, evaluation of the
patient at bedside, reviewing the patient's pertinent medical records including radiographs, microbiology, laboratory evaluations, and discussion with primary team and critical care nursing.
Subjective Dataa
Subjective Data
Date of Service:
Date of Service: May 23, 2025
Chief Complaint: Church Supervisor Follow Up
Subjective:
Pt seen this AM and evaluated. Resting in chair no acute distress. Currently on insulin drip at 5 units/hr. Has some chest discomfort and overnight had chest pain with a burning sensation in his upper chest. Currently, burning sensation is gone.
He says that usually tramadol is what helps him at home. Current heart rate 77 and BP 117/69. He is on room air breathing comfortably, saturating 95%.
Review of Systems
General: Other (Negative unless mentioned above)
Objective Data
Data Reviewed
Vital Signs / I&O / Oxygen:
Vital Signs
Temp Pulse Resp BP Pulse Ox
97.8 F 83 16 96/70 97
05/23/25 08:00 05/23/25 09:05 05/23/25 08:00 05/23/25 09:02 05/23/25 07:44
Intake and Output
05/22/25 05/23/25 05/24/25
06:59 06:59 06:59
Intake Total 496 / 496 692.0 / 715.5 38.5 / 38.5
Output Total 1505 / 1535 50 / 50
Balance 496 / 496 -813.0 / -819.5 -11.5 / -11.5
SaO2 [SIMV] 93
SaO2 97
Nasal Cannula flow liters per 2
minute
Physical Exam
General: Respiratory Distress (negative), Comfortable, Pain (chest at post-op site), Chills (negative) and Sweats (negative)
HEENT: Normocephalic and Anicteric
Cardiovascular: S1-S2 and Peripheral Edema (negative)
Respiratory: Clear, Wheeze (negative), Crackles (negative), Rhonchi (negative) and Non-Labored Respirations
GI: Soft, Non Distended, Non Tender and Normal Bowel Sounds
Neurology: AO x 3 and Tremors (negative)
Skin: Warm, Dry, Cyanosis (negative) and Jaundice (negative)
Labs/Micro/Reports
Lab Data
05/23/25 03:24
05/23/25 03:24
Laboratory Results
05/22/25
15:44
PT 18.2 H
INR 1.48
APTT 31.2
pH 7.36
pCO2 44
pO2 82 L
HCO3 24.9
O2 Delivery Level
[2025-05-23] MEDS: NOVOLOG FLEXPEN 4 UNITS SC ×3 (08:48→17:28)
[2025-05-23] MEDS: BACTROBAN 2% OINTMENT 1 APPLIC NASAL ×2 (08:48→19:35)
[2025-05-23] MEDS: PLAVIX 75 MG PO (08:49)
[2025-05-23] MEDS: VITAMIN B-12 500 MCG PO (08:49)
[2025-05-23] MEDS: SENOKOT 8.6 MG PO ×2 (08:49→19:24)
[2025-05-23] MEDS: NEURONTIN 100 MG PO ×3 (08:49→22:03)
[2025-05-23] MEDS: MAGNESIUM OXIDE 400 MG PO ×2 (08:49→19:24)
[2025-05-23] MEDS: LOPRESSOR 12.5 MG PO ×2 (08:49→19:24)
[2025-05-23] MEDS: PACERONE 200 MG PO ×3 (08:49→22:03)
[2025-05-23] MEDS: LOW STRENGTH ASPIRIN 81 MG PO (08:50)
[2025-05-23] MEDS: PROTONIX 40 MG PO (08:50)
[2025-05-23 10:00] LABS: Glucose - Point of Care 94 mg/dl (70-99)
[2025-05-23] MEDS: ULTRAM 50 MG PO ×2 (10:00→16:12)
[2025-05-23] MEDS: COLCHICINE 0.3 MG PO (10:00)
[2025-05-23 10:59] LABS: Glucose - Point of Care 115 mg/dl (70-99)
--- NOTE | 2025-05-23 11:14 | CM ---
Chart reviewed. Patient lying in bed, family at bedside. Patient is independent of ADLS, lives with his in a 3 STH, 1STE, 0 DME. Plan is for the patient to return home with CT Transitional RN. CM to follow
--- NOTE | 2025-05-23 11:31 | PTCARENOTE ---
Patient assisted to ambulate gavin Fernandez RN. Settled to bed. L pleural chest tube d/c'd as ordered, pacing wire insulated. Patient tolerated well.
--- NOTE | 2025-05-23 11:32 | W.PN.CARDCBS ---
Addendum entered and electronically signed by Ap Alston MD 05/23/25 16:31:
I saw and examined the patient.
The Agile Tester's note was reviewed and I agree with the note.
Comment: Briefly, 60-year-old man presenting with epigastric discomfort found to have elevated troponin consistent with NSTEMI. Subsequent Coronary angiography showed multivessel CAD and patient underwent surgical revascularization on 05/22/2025
(CABG x 3 and left atrial appendage clip). Preop echo with mild to moderate LV dysfunction.
Postoperatively patient is resting comfortably in the CVICU
Hemodynamically stable and not requiring pressor or inotrope support
Appears euvolemic on exam
Telemetry showing normal sinus rhythm
Agree with medical management of CAD�aspirin/Plavix, high intensity statin, beta-cecilio
With concern for postop pericarditis patient has also been started on low-dose colchicine as well
Given patient's LV dysfunction would consider adding LULA/ARB as blood pressure tolerates
Discussed with patient's at bedside
Original Note:
Today's Communication / Plan
-
continue post op care
follow EKGs
Impression / Plan
-
Primary Micro Paleontologist: none prior to admission
Assessment:
Presentation with epigastric pain with exertion
NSTEMI, trop 2
Multivessel coronary disease by cath including LAD and ulcerated RCA status post CABG x 3 In situ KRUSE to LAD, Ao to RSVG to PDA, Ao to RSVG to RI and LINDSEY exclusion 05/22/25
DM2
Hypothyroidism
Obesity
ROBBY
Laminectomy x2
Remote former smoker
ECHO 05/18/25: EF 37% by volumetric assessment and 47% by Alexander's, mild to moderate MR
Plan:
- Patient is status post CABG x 3 In situ KRUSE to LAD, Ao to RSVG to PDA, Ao to RSVG to RI and LINDSEY exclusion 05/22/25
- BP stable
- in SR on review of tele. continue lopressor, po amiodarone
- EKG with some ST elevations noted in V1-V3 and inversion/depression in lateral leads. will follow. given colchicine. appears comfortable, sitting in chair
- hgb stable at 14.9. on asa, plavix
- LDL 177. He reports a history of significantly worsened blood sugars while on statin therapy in the past. We discussed retrialing statin therapy in setting of RI and was started lipitor 80mg QPM. will need to follow blood sugars closely. hgbA1c
7.4%
- was on toprol 12.5mg daily preop. Eventual GDMT of cardiomyopathy as able. EF 37% by preop echo, 40-45% by ANKIT intraop.
- d/w nursing, family at bedside
Progress Note - Micro Paleontologist
Subjective
Date of Service: May 23, 2025
Reports some chest soreness, however overall feeling better than he expected.
Objective
Labs:
05/23/25 03:24
05/23/25 03:24
Labs
Hgb 14.9 g/dL (13.0-18.0) 05/23/25 03:24
Hct 42.9 % (39.0-52.0) 05/23/25 03:24
Plt Count 272 10^3/uL (130-400) 05/23/25 03:24
PT 18.2 Sec (11.4-14.6) H 05/22/25 15:44
INR 1.48 05/22/25 15:44
APTT 31.2 Sec (23.4-35.0) 05/22/25 15:44
Sodium 138 mmol/L (135-145) 05/23/25 03:24
Potassium 4.9 mmol/L (3.5-5.1) 05/23/25 03:24
BUN 13 mg/dl (9-20) 05/23/25 03:24
Creatinine 0.8 mg/dL (0.7-1.3) 05/23/25 03:24
Glucose 133 mg/dl (70-99) H 05/23/25 03:24
Vital Signs and I&O:
Vital Signs
Temp Pulse Resp BP Pulse Ox
97.8 F 76 16 114/66 97
05/23/25 08:00 05/23/25 10:05 05/23/25 08:00 05/23/25 10:00 05/23/25 07:44
Vital Signs
Temp Pulse Resp BP Pulse Ox
97.8 F 76 16 114/66 97
05/23/25 08:00 05/23/25 10:05 05/23/25 08:00 05/23/25 10:00 05/23/25 07:44
Intake & Output
05/21/25 05/22/25 05/23/25 05/24/25
07:59 07:59 07:59 07:59
Intake Total 480 / 480 496 / 496 715.5 / 730.5 521 / 521
Output Total 1535 / 1555 45 / 45
Balance 480 / 480 496 / 496 -819.5 / -824.5 476 / 476
Physical Exam
Physical Exam
GEN: No distress, awake, alert, oriented x3. Sitting in chair
HEENT: supple, anicteric, mmm, EOMI
LUNGS: CTA bilaterally, no wheezes/rales
CV: Reg, S1/S2, no murmur
ABD: soft, BS+, NT/ND
EXT: No cyanosis, clubbing. Trace edema of B/L LE
NEURO: Gross non-focal
SKIN: Warm, pink, dry. No rash. Sternotomy dressing c/d/i.
[2025-05-23 12:03] LABS: Glucose - Point of Care 99 mg/dl (70-99)
--- NOTE | 2025-05-23 12:05 | PTCARENOTE ---
VS obtained, assessment stable. Patient resting oob in chair, ordering lunch. Family at bedside.
[2025-05-23] MEDS: LR 250 IV ×2 (12:43→14:23)
[2025-05-23 13:03] LABS: Glucose - Point of Care 126 mg/dl (70-99)
[2025-05-23] MEDS: NSS IV (13:49)
[2025-05-23 15:07] LABS: Glucose - Point of Care 207 mg/dl (70-99)
[2025-05-23 16:20] LABS: Glucose - Point of Care 196 mg/dl (70-99)
--- NOTE | 2025-05-23 16:20 | PTCARENOTE ---
VS obtained, assessment stable. Patient assisted oob to chair, denies urge to void or discomfort. ANGELICA Candelario updated to bladder scan results.
[2025-05-23] MEDS: LR 500 IV (16:56)
[2025-05-23] MEDS: LIPITOR 80 MG PO (17:25)
[2025-05-23 17:28] LABS: Glucose - Point of Care 162 mg/dl (70-99)
[2025-05-23 19:04] LABS: Glucose - Point of Care 118 mg/dl (70-99)
--- NOTE | 2025-05-23 19:56 | W.PN.ANS.POP ---
Anesthesia Post Operative
- Anesthesia Post Op Note
Vital Signs Stable-See Nursing Note: Yes
Airway Patent: Yes
Adequate Pain Control: Yes
Change in Mental Status: No
Current Postoperative Nausea & Vomiting: No
Anesthesia Complications: No
General Anesthetic Recall: No
Unplanned Admission: No
Post Op Hydration Adequate: Yes
--- NOTE | 2025-05-23 20:00 | PTCARENOTE ---
Assumedcare of patient at 1900, Patient OOB in chair, alert and oriented, pain controlled with PRN medications. denies need for pain medication at this time. pulses all palatable. surgicals site CDI, CT draining red output. Ambulated in room to
bed with one person assist. Due to void, bladders scan completed. 269 cc in bladder. Patient attempted to void with out success, will reevaluation in couple hours. see workflow for complete assessment details.
[2025-05-23 20:01] LABS: Blood Urea Nitrogen 20 mg/dl (9-20); Calcium 8.6 mg/dl (8.4-10.2); Carbon Dioxide 24 mmol/L (22-30); Chloride 105 mmol/L (98-107); Estimated Creatinine Clearance 95 ml/min; Glucose 92 mg/dl (70-99); Potassium 4.1 mmol/L (3.5-5.1); Sodium 133 mmol/L (135-145); eGFR > 60.00
[2025-05-23] MEDS: TYLENOL 650 MG PO (20:46)
[2025-05-23] MEDS: TYLENOL PO (22:58)
[2025-05-23] MEDS: LIDOCAINE URO-JET 2% 1 SYRINGE TOPICAL (22:58)
[2025-05-24] VITALS (19 sets, daily range): BP systolic 83–140; BP diastolic 56–82; PULSE 62; O2SAT 96; BMI 32.0
--- NOTE | 2025-05-24 | PTCARENOTE ---
reassessed patient . Patient in bed, bladder scah repeated and 361 cc, void 10cc in urinal, stated it burn when he attempts to urinate. notified provider, lidocaine gel order and given. bladder scan repeated and 421 in bladder, patient attempt tov
oid again and was able to void 275 CC dark yellow urine.
[2025-05-24 00:12] LABS: Glucose - Point of Care 87 mg/dl (70-99)
[2025-05-24] MEDS: ULTRAM 50 MG PO (00:54)
[2025-05-24 01:35] LABS: Glucose - Point of Care 124 mg/dl (70-99)
[2025-05-24 01:35] LABS: Glucose - Point of Care 122 mg/dl (70-99)
[2025-05-24 03:24] LABS: Glucose - Point of Care 113 mg/dl (70-99)
[2025-05-24] MEDS: TYLENOL 975 MG PO ×3 (04:42→20:34)
[2025-05-24] MEDS: FLEXERIL 5 MG PO (04:42)
[2025-05-24 04:51] LABS: Glucose - Point of Care 146 mg/dl (70-99)
[2025-05-24 05:05] LABS: Hematocrit 37.3 % (39.0-52.0); Hemoglobin 12.5 g/dL (13.0-18.0); Mean Corp Hgb Conc. 33.5 g/dL (33.0-37.0); Mean Corpuscular Volume 88.0 fL (80.0-94.0); Platelet Count 216 10^3/uL (130-400); Red Cell Dist. Width 13.6 % (11.5-14.5)
[2025-05-24 06:04] LABS: Blood Urea Nitrogen 17 mg/dl (9-20); Calcium 8.2 mg/dl (8.4-10.2); Carbon Dioxide 24 mmol/L (22-30); Chloride 104 mmol/L (98-107); Estimated Creatinine Clearance 108 ml/min; Glucose 144 mg/dl (70-99); Magnesium 2.1 mg/dl (1.6-2.3); Potassium 4.9 mmol/L (3.5-5.1); Sodium 133 mmol/L (135-145); eGFR > 60.00
[2025-05-24] MEDS: SYNTHROID 175 MCG PO (06:40)
--- NOTE | 2025-05-24 07:43 | W.PN.CT ---
Documented by User: Tiffanie Daniels PA-C 05/24/25 07:48
Today's Communication / Plan
-
-pod #2
-low UO- got 1L of LR, was able to void 275 overnight
-consider diuresis
-CT output: 2 meds 45/145 in 12/24 hrs
-wean off O2 as tolerated - pOx 93 on 2L
-Tm 100.4-follow
-encourage IS, ambulate
Assessment / Plan
-
- NSTEMI, mv-CAD - s/p CABG x3 (In situ KRUSE to LAD, Ao to RSVG to PDA, Ao to RSVG to RI); LAAE #[address] Mazariegos on 05/22/25, pod #2
- Intraop ANKIT: LVEF preop was 40-45% with mild to moderate MR. Postoperative EF improved 50-55% with no regional wall motion abnormalities, mild MR.
- Type II DM
- Hypertension
- Hyperlipidemia
- Hypothyroidism
- Class 1 obesity, BMI 30
- ROBBY, uses CPAP
- Former tobacco, quit 30 yrs ago
- Laminectomy x2
- Inguinal hernia repair
- Acute postop pulmonary insufficiency/atelectasis
- Suspected acute postop pericarditis/+rub
- Acute postop hypovolemia with subsequent hypervolemia
- Acute postop hyponatremia
Discussed patient care with: Nursing and Care Team
Subjective
-
Date of Service: May 24, 2025
Objective Data
-
Lab Results
05/24/25 04:37
05/24/25 04:37
PT 18.2 Sec (11.4-14.6) H 05/22/25 15:44
INR 1.48 05/22/25 15:44
APTT 31.2 Sec (23.4-35.0) 05/22/25 15:44
Vital Signs
Vital Signs
Temp Pulse Resp BP Pulse Ox
100.4 F H 70 15 140/72 93
05/24/25 00:19 05/24/25 03:25 05/24/25 03:28 05/24/25 03:00 05/24/25 03:28
CT Intake/Output/Weight
05/23/25 05/24/25 05/24/25
18:59 06:59 18:59
Intake Total 1398.9 / 1651.4 252.5 / 1651.4
Output Total 125 / 445 320 / 445
Balance 1273.9 / 1206.4 -67.5 / 1206.4
SaO2: 93
Physical Exam
-
General: Awake and AOx3
Cardiovascular: Regular rate & rhythm, No Murmurs and No Rub
Respiratory: Decreased Breath Sounds
Sternum: Stable
Incision: Clean, Dry and Intact
Extremities: No Edema
Abdomen: soft, nondistended, nontender, decreased bowel sounds. no flatus per pt. No nausea
Data Reviewed
-
Lab Results: Results Reviewed
Medications: Active Meds Reviewed
Chest X-Ray: Report Reviewed and Image Reviewed
ECG: Report Reviewed and Image Reviewed

Documented by User: Diana Mazariegos MD 05/24/25 16:56
Today's Communication / Plan
-
I have seen and examined the patient. Doing well. Lasix today, BP much better. Increase BB, ambulate, dc vwires and mediastinal tubes.
-pod #2
-low UO- got 1L of LR, was able to void 275 overnight
-consider diuresis
-CT output: 2 meds 45/145 in 12/24 hrs
-wean off O2 as tolerated - pOx 93 on 2L
-Tm 100.4-follow
-encourage IS, ambulate
[2025-05-24] MEDS: NEURONTIN 100 MG PO ×3 (07:48→22:04)
[2025-05-24] MEDS: SENOKOT 8.6 MG PO ×2 (07:48→20:26)
[2025-05-24] MEDS: LOW STRENGTH ASPIRIN 81 MG PO (07:48)
[2025-05-24] MEDS: PROTONIX 40 MG PO (07:48)
[2025-05-24] MEDS: PACERONE 200 MG PO ×3 (07:49→22:04)
[2025-05-24] MEDS: LASIX 40 MG IV (07:49)
[2025-05-24] MEDS: COLCHICINE 0.3 MG PO (07:49)
[2025-05-24] MEDS: VITAMIN B-12 500 MCG PO (07:49)
[2025-05-24] MEDS: PLAVIX 75 MG PO (07:49)
[2025-05-24] MEDS: MAGNESIUM OXIDE 400 MG PO ×2 (07:49→20:27)
[2025-05-24] MEDS: LOPRESSOR 12.5 MG PO ×2 (07:49→20:27)
[2025-05-24] MEDS: BACTROBAN 2% OINTMENT 1 APPLIC NASAL ×2 (07:50→20:28)
[2025-05-24 07:55] LABS: Glucose - Point of Care 219 mg/dl (70-99)
--- NOTE | 2025-05-24 08:12 | PN.DE.MGMTRT ---
Insulin Management
- -
05/24/2025: Diabetes Management Consult Follow up
Patient admitted 05/17 with CP. PMH: ROBBY on CPAP, HTN, HLD, Testosterone deficiency, Obesity, hypothyroidism and GERD who presented with palpitations + chest pain for 1 month prior to arrival--> NSTEMI-->Left heart catheterization --> multivessel
CAD, patient underwent CABG x 3 with left atrial appendage exclusion. Prior to admission was taking Lantus 40-50 units @HS, Novolog 30-35 units AC and uses Dexcom G7 CGM for glucose monitoring at home
Pt awake, alert, oriented, sitting up in chair, offers no complaints, able to discuss diabetes care plan. States he sees Dr. Villatoro for diabetes care. He recently doubled his insulin.
POD 2 Insulin infusion was stopped overnight, glucose up to 326 this AM, insulin infusion restarted. Will continue insulin infusion today and transition to subcutaneous insulin @ HS. To receive 40 units lantus @ HS insulin infusion off 2 hours
later. In AM to start 10 units novolog AC with low corrective insulin.
Patient and with many questions, he follows a keto diet, encouraged to not eat victor and eggs everyday but that CHO in particular choices that are whole grain and not processed would be advised.
Discussed with Nurse. Will cont to monitor
Diabetes History
- -
Type of Diabetes: 2 requiring insulin
Pre-Admission Diabetes Regimen
05/23/25 05/24/25
19:31 04:37
Creatinine 1.0 0.9
Lab Results
Hemoglobin A1c 7.4 % (4.0-5.6) H 05/18/25 03:22
Insulin Pump Settings
IP Diabetes Regimen
05/23/25 05/23/25 05/23/25
09:58 10:57 12:00
Glucose
POC Glucose 94 115 H 99
05/23/25 05/23/25 05/23/25
13:01 15:06 16:19
Glucose
POC Glucose 126 H 207 H 196 H
05/23/25 05/23/25 05/23/25
17:26 19:03 19:31
Glucose 92
POC Glucose 162 H 118 H
05/23/25 05/24/25 05/24/25
23:13 00:14 01:31
Glucose
POC Glucose 87 122 H 124 H
05/24/25 05/24/25 05/24/25
03:22 04:37 04:49
Glucose 144 H
POC Glucose 113 H 146 H
05/24/25
07:53
Glucose
POC Glucose 219 H
Meal type: Dinner
Meal type: Dinner
Meal type: Lunch
Meal type: Breakfast
Amount consumed: 100%
Amount consumed: 100%
Amount consumed: 100%
Amount consumed: 100%
Patient Education
--- NOTE | 2025-05-24 08:22 | W.PN.INTV ---
Today's Communication / Plan
Recommendations
Up OOB as tolerated
Patient is receiving very high amounts of insulin via infusion; he is currently on a 2000-calorie/17 CHO diabetic diet. Consider endocrinology consult for further assistance
Pain control
Encourage incentive spirometer q1hr while awake
prn bronchodilators (not currently bronchospastic)
Goal BG 110�140; wean off insulin drip per protocol
Once transferred to CVICU�telemetry status then our service will sign off at that time.
Assessment
-
Assessment: 60-year-old male with a past medical history of ROBBY on CPAP, testosterone deficiency, obesity, hyperlipidemia, hypertension, hypothyroidism and GERD who presented with palpitations + chest pain for 1 month prior to arrival.. Initial
troponin elevated at 2.23, and EKG showed T wave flattening in the inferolateral leads. He was started on heparin drip, and also given aspirin + metoprolol, and admitted to IVU with cardiology consulted. Patient diagnosed with NSTEMI. Echo on 05/18
showed reduced LVEF at 37% with hypokinetic dickey in the anteroseptum, inferoseptum and inferior segments. Also mild-moderate MR.. Left heart catheterization performed on 05/18 showing multivessel CAD with MILLER KILN DRIED SALT of ostial�mid LAD and ulcerated
stenosis in the proximal RCA. Cardiothoracic surgery consulted and recommended surgical revascularization which the patient agreed to. On 05/22/2025, patient underwent CABG x 3 with left atrial appendage exclusion. There were no complications, and
the patient was transferred to the CVICU and Dial Polisher service is now consulted for additional management/recommendations.
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
Impression:
#Multivessel CAD with MILLER KILN DRIED SALT of ostial�mid LAD and eccentric ulcerated 80% proximal stenosis in the RCA complicated by NSTEMI s/p CABG x 3+ left atrial appendage exclusion (POD #2)
#DM type II c/b hyperglycemia
#Hypertension
#Hyperlipidemia
#Hypothyroidism
#ROBBY on CPAP
Plan:
Patient successfully extubated on evening of 05/22/2025 and is currently on room air breathing comfortably, saturating 94-95%
Maintain SpO2 >90-94%
prn nebulized bronchodilators - not currently bronchospastic
If pt uses CPAP at home and is ok wearing it here, then would place him onto CPAP with sleep, or alternatively he can have someone bring in his own machine for nighttime use
Pressors/antihypertensive/inotropes/diuretics will be provided as needed
Maintain MAP>65
Replete electrolytes with K>4, Mg>2
Monitor chest tube output (mediastinal x 2; left pleural x 1 removed on 05/23)
Monitor hemoglobin
Monitor platelet count and coags
Transfuse blood products as needed to maintain Hb>7g/dL, plt>50k (given post-operative status)
CT surgery managing chest tubes
Monitor blood sugar to maintain euglycemia with goal BG 110-140
Insulin drip per protocol
Aspiration precautions
DVT prophylaxis
Early nutrition
Early mobilization
Once transferred to CVICU�telemetry status then our service will sign off at that time.
Critical care statement: A total of 36 minutes of critical care time was provided for this patient today. This includes management of ventilator, spontaneous breathing trial, arterial blood gases, pressors, of unstable vital signs, evaluation of the
patient at bedside, reviewing the patient's pertinent medical records including radiographs, microbiology, laboratory evaluations, and discussion with primary team and critical care nursing.
Subjective Dataa
Subjective Data
Date of Service:
Date of Service: May 24, 2025
Chief Complaint: Dial Polisher Follow Up
Subjective:
Patient seen today at bedside. Heart rate 80, BP 128/56, and on room air breathing comfortably. Insulin currently at 20 units/h. Patient's , Delmy, present at bedside. Patient has chest soreness where the operation was performed otherwise
denies [place], SOB, abdominal pain, nausea, fevers or chills.
Review of Systems
General: Other (Negative unless mentioned above)
Objective Data
Data Reviewed
Vital Signs / I&O / Oxygen:
Vital Signs
Temp Pulse Resp BP Pulse Ox
98.9 F 71 16 137/74 93
05/24/25 07:46 05/24/25 07:49 05/24/25 07:46 05/24/25 07:49 05/24/25 07:48
Intake and Output
05/23/25 05/24/25 05/25/25
06:59 06:59 06:59
Intake Total 692.0 / 715.5 1651.4 / 1651.4
Output Total 1505 / 1535 445 / 445
Balance -813.0 / -819.5 1206.4 / 1206.4
SaO2 [SIMV] 93
SaO2 93
Nasal Cannula flow liters per 2
minute
Physical Exam
General: Respiratory Distress (negative), Comfortable, Pain (chest at post-op site), Chills (negative) and Sweats (negative)
HEENT: Normocephalic, Anicteric and Other (R-IJ cordis)
Cardiovascular: S1-S2 and Peripheral Edema (negative)
Respiratory: Clear, Wheeze (negative), Crackles (negative), Rhonchi (negative) and Non-Labored Respirations
GI: Soft, Non Distended, Non Tender and Normal Bowel Sounds
Neurology: AO x 3 and Tremors (negative)
Skin: Warm, Dry, Cyanosis (negative) and Jaundice (negative)
Labs/Micro/Reports
Lab Data
05/24/25 04:37
05/24/25 04:37
[2025-05-24] MEDS: NOVOLIN R INSULIN INFUSION 100 IV ×2 (09:37→17:46)
[2025-05-24 09:47] LABS: Glucose - Point of Care 326 mg/dl (70-99)
[2025-05-24 10:51] LABS: Glucose - Point of Care 268 mg/dl (70-99)
[2025-05-24] MEDS: NOVOLOG FLEXPEN SC (11:11)
--- NOTE | 2025-05-24 11:11 | CM ---
Chart reviewed. Patient is OOB sitting in the chair, is at bedside. Patient is independent of ADLS, lives with his in a 3 STH, 1 ERIC, 0 DME. Plan is for the patient to return home. CM to follow
[2025-05-24 12:04] LABS: Glucose - Point of Care 239 mg/dl (70-99)
[2025-05-24 13:05] LABS: Glucose - Point of Care 241 mg/dl (70-99)
[2025-05-24] MEDS: NSS 500 IV (13:45)
[2025-05-24 14:03] LABS: Glucose - Point of Care 181 mg/dl (70-99)
[2025-05-24 15:06] LABS: Glucose - Point of Care 190 mg/dl (70-99)
--- NOTE | 2025-05-24 15:26 | W.PN.CARDCBS ---
Addendum entered and electronically signed by Dylan Montiel DO 05/24/25 20:56:
I saw and examined the patient.
The Seed Packer's note was reviewed and I agree with the note.
Comment:
Plan:
Cont post op care
Remains in sinus, cont Lopressor and amiodarone
Cont statin therapy; he had concerns about his blood glucose on statins, cont to monitor glucose closely
Cont DAPT
Cont beta cecilio. Eventual further GDMT given CM pre and perioperatively
Original Note:
Today's Communication / Plan
-
continue post op care
ambulate/IS
in SR
Impression / Plan
-
Primary Orchid Worker: none prior to admission
Assessment:
Presentation with epigastric pain with exertion
NSTEMI, trop 2
Multivessel coronary disease by cath including LAD and ulcerated RCA status post CABG x 3 In situ KRUSE to LAD, Ao to RSVG to PDA, Ao to RSVG to RI and LINDSEY exclusion 05/22/25
DM2
Hypothyroidism
Obesity
ROBBY
Laminectomy x2
Remote former smoker
ECHO 05/18/25: EF 37% by volumetric assessment and 47% by Alexander's, mild to moderate MR
Plan:
- Patient is status post CABG x 3 In situ KRUSE to LAD, Ao to RSVG to PDA, Ao to RSVG to RI and LINDSEY exclusion 05/22/25
- doing well
- in SR on review of tele. continue lopressor, po amio
- continue colchicine
- ambulate/OOB as able
- hgb 12.5. on asa, plavix
- encourage IS. follow volume status. s/p 40mg IV lasix today.
- LDL 177. He reports a history of significantly worsened blood sugars while on statin therapy in the past. We discussed retrialing statin therapy in setting of [place] and was started lipitor 80mg QPM. will need to follow blood sugars closely. hgbA1c
7.4%
- was on toprol 12.5mg daily preop. Eventual GDMT of cardiomyopathy as able. EF 37% by preop echo, 40-45% by ANKIT intraop.
- d/w family at bedside
Progress Note - Orchid Worker
Subjective
Date of Service: May 24, 2025
feeling better than expected. ambulating around unit
Objective
Labs:
05/24/25 04:37
05/24/25 04:37
Labs
Hgb 12.5 g/dL (13.0-18.0) L 05/24/25 04:37
Hct 37.3 % (39.0-52.0) L 05/24/25 04:37
Plt Count 216 10^3/uL (130-400) D 05/24/25 04:37
PT 18.2 Sec (11.4-14.6) H 05/22/25 15:44
INR 1.48 05/22/25 15:44
APTT 31.2 Sec (23.4-35.0) 05/22/25 15:44
Sodium 133 mmol/L (135-145) L 05/24/25 04:37
Potassium 4.9 mmol/L (3.5-5.1) 05/24/25 04:37
BUN 17 mg/dl (9-20) 05/24/25 04:37
Creatinine 0.9 mg/dL (0.7-1.3) 05/24/25 04:37
Glucose 144 mg/dl (70-99) H 05/24/25 04:37
Vital Signs and I&O:
Vital Signs
Temp Pulse Resp BP Pulse Ox
98.8 F 84 16 128/56 91
05/24/25 12:05 05/24/25 15:10 05/24/25 12:05 05/24/25 15:03 05/24/25 12:45
Vital Signs
Temp Pulse Resp BP Pulse Ox
98.8 F 84 16 128/56 91
05/24/25 12:05 05/24/25 15:10 05/24/25 12:05 05/24/25 15:03 05/24/25 12:45
Intake & Output
05/22/25 05/23/25 05/24/25 05/25/25
07:59 07:59 07:59 07:59
Intake Total 496 / 496 715.5 / 730.5 1627.9 / 1627.9
Output Total 1535 / 1555 415 / 415 1675 / 1675
Balance 496 / 496 -819.5 / -824.5 1212.9 / 1212.9 -1675 / -1675
Physical Exam
Physical Exam
GEN: No distress, awake, alert, oriented x3
HEENT: supple, anicteric, mmm, eomi
LUNGS: CTA B/L, no wheezes/rales
CV: Reg, S1/S2, no murmur
ABD: soft, BS+, NT/ND
EXT: No cyanosis, clubbing. trace edema of B/L LE
NEURO: Gross non-focal
SKIN: Warm, pink, dry. No rash. Sternotomy incision c/d/i.
[2025-05-24 16:04] LABS: Glucose - Point of Care 261 mg/dl (70-99)
[2025-05-24 17:06] LABS: Glucose - Point of Care 254 mg/dl (70-99)
[2025-05-24] MEDS: LIPITOR 80 MG PO (18:04)
[2025-05-24 18:07] LABS: Glucose - Point of Care 175 mg/dl (70-99)
--- NOTE | 2025-05-24 18:50 | PTCARENOTE ---
Patient care assumed from nightshift RN. Patient OOB in chair. Denies pain. Fully alert and oriented. Mediastinal chest tubes x2 in place to -20 suction, later removed during shift by RN. Insulated wires removed by HOT PLATE PRESS OPERATOR 1 hour prior to chest tube
removal. Chest tube site cleansed, and dressed with vaseline gauze, sterile 4x4 and ABD pad. Pt restarted on insulin gtt after discovering gtt had been discontinued since 0330 that morning. Titrated insulin per critical care protocol throughout
shift. Patient received 40mg IV lasix, and voided clear yellow without complication, see I&O for detailed measurements. Patient ambulated in halls and in room as tolerated, no complaints of lightheaded or dizziness. Pt on room air, does tend to
desat into 89% region when sleeping so nasal cannula PRN when napping. Consuming all meals adequately, passing flatus but no BM this shift. Belly soft nontender. Surgical sites clean, dry, intact. RIJ cordis present.
[2025-05-24 19:21] LABS: Glucose - Point of Care 115 mg/dl (70-99)
--- NOTE | 2025-05-24 20:25 | PTCARENOTE ---
assumed care of pt from previous rn. pt ambulating in room. AAOx4, NSR per tele monitor HR 80s. +pulses, pox 94% on RA, lungs diminished. coughing and deep breathing encouraged IS 1000. +bs, pt voiding in bathroom spontaneously. all surgical sites
intact. CT dressing c/d/i. RIJ Cordis intact. PIV intact infusing insulin per glycemic protocol. plan of care discussed and questions encouraged
[2025-05-24] MEDS: ULTRAM 25 MG PO (20:34)
[2025-05-24 21:02] LABS: Glucose - Point of Care 98 mg/dl (70-99)
[2025-05-24] MEDS: LANTUS 0.4 UNITS SC (22:04)
[2025-05-24 22:07] LABS: Glucose - Point of Care 127 mg/dl (70-99)
[2025-05-24 22:57] LABS: Glucose - Point of Care 144 mg/dl (70-99)
[2025-05-25] VITALS (8 sets, daily range): BP systolic 110–150; BP diastolic 55–73; PULSE 75; O2SAT 95–97; BMI 31.5
--- NOTE | 2025-05-25 00:09 | PTCARENOTE ---
VSS, NSR per tele monitor HR 80s, Glycemic protocol d/c'd. Insulin gtt turned off @ 2400. assessment remains unchanged otherwise
--- NOTE | 2025-05-25 00:53 | W.PN.CT ---
Today's Communication / Plan
-
-pod #3
-doing well, feeling better after CTs came out. Ambulated without issues, no complaints
-diuresed 2250 with iv Lasix on 05/24- continue
-on Lantus and Novolog. Appreciate DM input
-current meds (ASA, Plavix, Lipitor, Lopressor, Amio, Protonix, Insulin)
-encourage IS, ambulate
-possible d/c soon
-appreciate everyone's input
Assessment / Plan
-
- NSTEMI, mv-CAD - s/p CABG x3 (In situ KRUSE to LAD, Ao to RSVG to PDA, Ao to RSVG to RI); LAAE #[address] Mazariegos on 05/22/25, pod #3
- Intraop ANKIT: LVEF preop was 40-45% with mild to moderate MR. Postoperative EF improved 50-55% with no regional wall motion abnormalities, mild MR.
- Type II DM
- Hypertension
- Hyperlipidemia
- Hypothyroidism
- Class 1 obesity, BMI 30
- ROBBY, uses CPAP
- Former tobacco, quit 30 yrs ago
- Laminectomy x2
- Inguinal hernia repair
- Acute postop pulmonary insufficiency/atelectasis
- Suspected acute postop pericarditis/+rub
- Acute postop hypovolemia with subsequent hypervolemia
- Acute postop hyponatremia
Discussed patient care with: Nursing and Care Team
Subjective
-
Date of Service: May 25, 2025
Objective Data
-
PT 18.2 Sec (11.4-14.6) H 05/22/25 15:44
INR 1.48 05/22/25 15:44
APTT 31.2 Sec (23.4-35.0) 05/22/25 15:44
Vital Signs
Vital Signs
Temp Pulse Resp BP Pulse Ox
99.1 F 74 18 116/64 98
05/25/25 00:13 05/25/25 00:10 05/25/25 00:13 05/24/25 22:56 05/25/25 00:13
CT Intake/Output/Weight
05/24/25 05/24/25 05/25/25
06:59 18:59 06:59
Intake Total 252.5 / 1651.4
Output Total 320 / 445 2250 / 2700 450 / 2700
Balance -67.5 / 1206.4 -2250 / -2690 -440 / -2690
SaO2: 98
Physical Exam
-
General: Awake and AOx3
Cardiovascular: Regular rate & rhythm, No Murmurs and No Rub
Respiratory: Decreased Breath Sounds
Sternum: Stable
Incision: Clean, Dry and Intact
Extremities: No Edema
Abdomen: soft, nontender, +bowel sounds, no nausea
Data Reviewed
-
Lab Results: Results Reviewed
Medications: Active Meds Reviewed
Chest X-Ray: Report Reviewed and Image Reviewed
ECG: Report Reviewed and Image Reviewed
[2025-05-25 04:06] LABS: Hematocrit 37.3 % (39.0-52.0); Hemoglobin 12.6 g/dL (13.0-18.0); Mean Corp Hgb Conc. 33.8 g/dL (33.0-37.0); Mean Corpuscular Volume 88.4 fL (80.0-94.0); Platelet Count 219 10^3/uL (130-400); Red Cell Dist. Width 13.2 % (11.5-14.5)
[2025-05-25] MEDS: TYLENOL 975 MG PO (04:10)
--- NOTE | 2025-05-25 04:21 | PTCARENOTE ---
AM labs obtained. VSS, NSR per tele monitor HR 70s. assessment remains unchanged
[2025-05-25 06:09] LABS: Blood Urea Nitrogen 17 mg/dl (9-20); Calcium 8.1 mg/dl (8.4-10.2); Carbon Dioxide 24 mmol/L (22-30); Chloride 104 mmol/L (98-107); Estimated Creatinine Clearance 107 ml/min; Glucose 129 mg/dl (70-99); Magnesium 2.0 mg/dl (1.6-2.3); Potassium 4.3 mmol/L (3.5-5.1); Sodium 136 mmol/L (135-145); eGFR > 60.00
[2025-05-25] MEDS: SYNTHROID 175 MCG PO (06:24)
--- NOTE | 2025-05-25 07:58 | PN.DE.MGMTRT ---
Insulin Management
- -
05/25/2025: Diabetes Management Follow up
Patient admitted 05/17 with CP. PMH: ROBBY on CPAP, HTN, HLD, Testosterone deficiency, Obesity, hypothyroidism and GERD who presented with palpitations + chest pain for 1 month prior to arrival--> NSTEMI-->Left heart catheterization --> multivessel
CAD, patient underwent CABG x 3 with left atrial appendage exclusion. Prior to admission was taking Lantus 40-50 units @HS, NovoLog 30-35 units AC and uses Dexcom G7 CGM for glucose monitoring at home. States he sees Dr. Villatoro for diabetes care.
He recently doubled his insulin.
Pt awake, alert, oriented, sitting up in chair, offers no complaints, able to discuss diabetes care plan.
POD # 3 transitioned off Insulin infusion to SQ insulin yesterday. Received Lantus 45 units @ HS, fasting glucose 129 V, 161 POC this AM.
Will cont same dose of Lantus tonight. pre-dinner glucose was 175, HS 98. Will cont 10 units NovoLog AC with low corrective insulin.
Patient and with many questions, he follows a keto diet, encouraged to not eat victor and eggs everyday but that CHO in particular choices that are whole grain and not processed would be advised.
Discussed with Nurse. Will cont to monitor
Meds at discharge: Lantus 45 units @ HS and NovoLog 30-35 units AC
Diabetes History
- -
Type of Diabetes: 2 requiring insulin
Pre-Admission Diabetes Regimen
05/25/25
03:55
Creatinine 0.9
Lab Results
Hemoglobin A1c 7.4 % (4.0-5.6) H 05/18/25 03:22
Insulin Pump Settings
IP Diabetes Regimen
05/24/25 05/24/25 05/24/25
09:40 10:47 12:03
Glucose
POC Glucose 326 H 268 H 239 H
05/24/25 05/24/2525
13:03 14:01 15:04
Glucose
POC Glucose 241 H 181 H 190 H
05/24/25 05/24/25 05/24/25
16:01 17:04 18:05
Glucose
POC Glucose 261 H 254 H 175 H
05/24/25 05/24/25 05/24/25
19:19 20:58 22:06
Glucose
POC Glucose 115 H 98 127 H
05/24/25 05/25/25
22:54 03:55
Glucose 129 H
POC Glucose 144 H
Meal type: Dinner
Meal type: Lunch
Amount consumed: 100%
Amount consumed: 100%
Patient Education
--- NOTE | 2025-05-25 08:30 | W.PN.INTV ---
Today's Communication / Plan
Recommendations
Up OOB as tolerated
Pain control
Encourage incentive spirometer q1hr while awake
prn bronchodilators (not currently bronchospastic)
Goal BG 110�140
Patient being prepared for discharge home. No additional recommendations at this time. Digital Campaign Specialist/Pulmonary service will now sign off. Please reconsult if there are any additional questions/concerns, or if patient's respiratory status
deteriorates.
Assessment
-
Assessment: 60-year-old male with a past medical history of ROBBY on CPAP, testosterone deficiency, obesity, hyperlipidemia, hypertension, hypothyroidism and GERD who presented with palpitations + chest pain for 1 month prior to arrival.. Initial
troponin elevated at 2.23, and EKG showed T wave flattening in the inferolateral leads. He was started on heparin drip, and also given aspirin + metoprolol, and admitted to IVU with cardiology consulted. Patient diagnosed with NSTEMI. Echo on 05/18
showed reduced LVEF at 37% with hypokinetic dickey in the anteroseptum, inferoseptum and inferior segments. Also mild-moderate MR.. Left heart catheterization performed on 05/18 showing multivessel CAD with FEED BLENDER of ostial�mid LAD and ulcerated
stenosis in the proximal RCA. Cardiothoracic surgery consulted and recommended surgical revascularization which the patient agreed to. On 05/22/2025, patient underwent CABG x 3 with left atrial appendage exclusion. There were no complications, and
the patient was transferred to the CVICU and Digital Campaign Specialist service is now consulted for additional management/recommendations.
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
Impression:
#Multivessel CAD with FEED BLENDER of ostial�mid LAD and eccentric ulcerated 80% proximal stenosis in the RCA complicated by NSTEMI s/p CABG x 3+ left atrial appendage exclusion (POD #3)
#DM type II c/b hyperglycemia
#Hypertension
#Hyperlipidemia
#Hypothyroidism
#ROBBY on CPAP
Plan:
Patient successfully extubated on evening of 05/22/2025 and is currently on room air breathing comfortably, saturating 94-95%
Maintain SpO2 >90-94%
prn nebulized bronchodilators - not currently bronchospastic
If pt uses CPAP at home and is ok wearing it here, then would place him onto CPAP with sleep, or alternatively he can have someone bring in his own machine for nighttime use
Pressors/antihypertensive/inotropes/diuretics will be provided as needed
Maintain MAP>65
Replete electrolytes with K>4, Mg>2
Monitor chest tube output (mediastinal x 2; left pleural x 1 removed on 05/23)
Monitor hemoglobin
Monitor platelet count and coags
Transfuse blood products as needed to maintain Hb>7g/dL, plt>50k (given post-operative status)
CT surgery managing chest tubes
Monitor blood sugar to maintain euglycemia with goal BG 110-140
Insulin drip per protocol
Aspiration precautions
DVT prophylaxis
Early nutrition
Early mobilization
Patient being prepared for discharge home. No additional recommendations at this time. Digital Campaign Specialist/Pulmonary service will now sign off. Thank you for allowing us to be involved in the care of this patient. Please reconsult if there are any
additional questions/concerns, or if patient's respiratory status deteriorates.
Total time spent today was 42 minutes for this encounter. Time includes reviewing laboratory test/imaging results, reviewing pertinent medical records, obtaining and reviewing medical history, performing an appropriate exam, ordering medications,
tests and procedures. Time also includes documentation of this encounter, coordinating patient care and communicating with other healthcare professionals. Total time does not include separately billed tests performed on this date of service.
Subjective Dataa
Subjective Data
Date of Service:
Date of Service: May 25, 2025
Chief Complaint: Digital Campaign Specialist Follow Up
Subjective:
Patient seen today. Being prepared for discharge home. No acute events reported from overnight.
Review of Systems
General: Other (Negative unless mentioned above)
Objective Data
Data Reviewed
Vital Signs / I&O / Oxygen:
Vital Signs
Temp Pulse Resp BP Pulse Ox
98 F 75 18 125/65 97
05/25/25 15:03 05/25/25 15:03 05/25/25 15:03 05/25/25 15:03 05/25/25 15:03
Intake and Output
05/24/25 05/25/25 05/26/25
06:59 06:59 06:59
Intake Total 1651.4 / 1651.4
Output Total 445 / 445 3050 / 3050 1050 / 1050
Balance 1206.4 / 1206.4 -3040 / -3040 -1040 / -1040
SaO2 [SIMV] 93
SaO2 97
Nasal Cannula flow liters per 2
minute
Physical Exam
General: Respiratory Distress (negative), Comfortable, Pain (chest at post-op site), Chills (negative) and Sweats (negative)
HEENT: Normocephalic, Anicteric and Other (R-IJ cordis)
Cardiovascular: S1-S2 and Peripheral Edema (negative)
Respiratory: Clear, Wheeze (negative), Crackles (negative), Rhonchi (negative) and Non-Labored Respirations
GI: Soft, Non Distended, Non Tender and Normal Bowel Sounds
Neurology: AO x 3 and Tremors (negative)
Skin: Warm, Dry, Cyanosis (negative) and Jaundice (negative)
Labs/Micro/Reports
Lab Data
05/25/25 03:55
05/25/25 03:55
--- NOTE | 2025-05-25 08:45 | PTCARENOTE ---
Assumed care of pt from dayshift RN. Walking rounds completed. Pt is AAOx3. Assisted from the bed to the bathroom to void then to the chair. Minimal assist. Pt SR on the tele monitor. HR 70s. BP stable. Palpable pulses throughout. No edema. Pt on
RA. POX 97%. Lung sounds diminished in B/L bases. Deep breathing and IS encouraged. Abdomen soft/nontender. +BSx4. Voiding w/o issue. No BM. All surgical sites stable. Right IJ cordis and PIV intact. Pt updated w/ plan for the day. See worklist for
full nursing assessment and interventions. Call astorga within reach.
[2025-05-25] MEDS: VITAMIN B-12 500 MCG PO (08:46)
[2025-05-25] MEDS: PROTONIX 40 MG PO (08:46)
[2025-05-25] MEDS: SENOKOT 8.6 MG PO (08:47)
[2025-05-25] MEDS: MAGNESIUM OXIDE 400 MG PO (08:47)
[2025-05-25] MEDS: TOPROL XL 25 MG PO (08:47)
[2025-05-25] MEDS: PLAVIX 75 MG PO (08:47)
[2025-05-25] MEDS: NEURONTIN 100 MG PO (08:47)
[2025-05-25] MEDS: COLCHICINE 0.3 MG PO (08:47)
[2025-05-25] MEDS: PACERONE 200 MG PO (08:47)
[2025-05-25] MEDS: LOW STRENGTH ASPIRIN 81 MG PO (08:47)
[2025-05-25] MEDS: BACTROBAN 2% OINTMENT 1 APPLIC NASAL (08:48)
[2025-05-25 08:56] LABS: Glucose - Point of Care 161 mg/dl (70-99)
[2025-05-25] MEDS: NOVOLOG FLEXPEN-LOW RESISTANCE 1 UNITS SC ×2 (08:56→12:55)
[2025-05-25] MEDS: NOVOLOG FLEXPEN 10 UNITS SC ×2 (08:57→12:56)
[2025-05-25] MEDS: ULTRAM 50 MG PO (09:10)
--- NOTE | 2025-05-25 10:39 | W.DCSUMMARY ---
Discharge Summary
Discharge Data
Date of Admission: 05/17/25
Date of Discharge: 05/25/25
-
Pending Results: No
Hospital Course
Primary care physician: Jaspal Jimenez
Outpatient rent and housing investigator: Baljinder Patel
Inpatient consultants: [facility], pulmonary river transportation worker, diabetes nurse practitioner
Procedures:
1. CABG x 3, left atrial appendage clip
Primary Diagnosis:
1. NSTEMI/multivessel coronary artery disease
Secondary Diagnoses:
1. Type II DM
2. Hypertension
3. Hyperlipidemia
4. Hypothyroidism
5. Class 1 obesity, (BMI 31.5)
6. ROBBY, uses CPAP
7. Laminectomy x2
8. Inguinal hernia repair
- Acute postop pulmonary insufficiency/atelectasis
- Suspected acute postop pericarditis/+rub
- Acute postop hypovolemia with subsequent hypervolemia
- Acute postop hyponatremia
HPI: 60-year-old male with a past medical history of diabetes, hypertension, hyperlipidemia, hypothyroidism, was admitted to [facility] ER on 05/17/25 with approximately 1 month history of intermittent chest pain precipitated by emotional stress or
physical exertion. Patient ruled in for NSTEMI with troponin of 2.2 and underwent left heart catheterization on 05/18/2025 which reported triple-vessel coronary disease.
Hospital course: Cardiac workup ensued and patient was brought to the operating room 01/30/2025 and underwent CABG x 3 with KRUSE to LAD, SVG to ramus, SVG to PDA, and left atrial appendage #35mm clip by Dr. Mazariegos. Post procedure TTE reported
improved EF from 40-45% to 50-55%. Please refer to operative note for further details. Patient received no intraoperative blood products and returned to CVICU on Levophed 4, insulin, Precedex. Patient was extubated at 1842 on the day of surgery.
On postop day #1, a pericardial rub was noted and morning ECG was consistent with pericarditis, therefore colchicine 0.3 mg daily was started as protocol prophylactic amiodarone was administered. Aspirin and Plavix were initiated. Postoperative
day #2, chest tubes and ventricular wires were removed. Patient was evaluated by diabetes nurse practitioner team and transitioned off protocol postoperative insulin infusion. She was stabilized on postoperative day 3. Patient was converted to
Toprol 25 mg daily and right IJ was discontinued. Farxiga and valsartan added per cardiology for HFimp EF. Patient ambulated in halls, completed steps and is deemed stable for discharge. Labs on day of discharge: Hemoglobin 12.6, creatinine 0.9,
potassium 4.3. Patient will be discharged on his usual home insulin regimen and follow-up with his director software. Patient will be followed by the transitional nurse teamwith follow-up BMP in 1 week.
Home medication changes:
Prilosec changed to Protonix while on Plavix
Tramadol and gabapentin for postoperative pain
Lasix 20 mg p.o. daily x 7 days
Lipitor 80 mg daily
Colchicine 0.6 mg daily x 1 month for postoperative pericarditis
Farxiga and valsartan for heart failure
Discharge Plan
-
Patient Disposition: Home (Routine Discharge)
Discharge Diagnosis/Procedures: CABG x 3 & left atrial appendage clip (05/22/25)
Condition: Good
Diet: Low Cholesterol, Low Sodium and Diabetic, Carb Controlled
Activity: No strenuous activity
Driving Restrictions: Not until seen by your Dr
Bathing Restrictions: OK to Shower
Blood Work: BMP in 1 week
Other Services: Cardiac Rehab
Specialty Instructions: Weigh Daily- Call MD for wt gain/loss 3 lbs overnight/5 lbs in 1 week
Referrals:
CT Transitional Care Nurse [Outside]
Referral Note: The Cardiothoracic Transitional Care Nurse will call you to set up a visit in 1-2 days.
[facility] [address]. Cardiac Rehab [Outside] - 06/29/25 9:00 am
Referral Note: Cardiac Rehab Orientation appointment and� First Exercise appointment is on 06/29/25 at 9am.
The Cardiac Rehab gym is located on the first floor of the [facility].
Jaspal Jimenez DO [Family Provider, Family Practice]
Diana Mazariegos MD [Active, Cardiac Surgery] - 06/20/25 9:00 am
Referral Note: post-op visit
Magnolia Rodriguez CRNP [Specified Professional Personl, Cardiology] - 07/05/25 2:20 pm
Prescriptions:
New
tramadol 50 mg Tablet
50 mg PO Q6HPRN PRN (Reason: severe pain) Qty: 15 0RF
aspirin 81 mg Tablet,Chewable
81 mg PO DAILY Qty: 0 0RF
gabapentin 100 mg Capsule
100 mg PO TID Qty: 30 0RF
colchicine 0.6 mg Tablet
0.6 mg PO DAILY Qty: 30 0RF
atorvastatin 80 mg Tablet
80 mg PO QPM Qty: 30 2RF
acetaminophen 325 mg Tablet
650 mg PO Q4HPRN PRN (Reason: mild pain,headache,temp >101F ) Qty: 0 0RF
clopidogrel 75 mg Tablet
75 mg PO DAILY Qty: 30 2RF
pantoprazole 40 mg Tablet,Delayed Release (Dr/Ec)
40 mg PO DAILY Qty: 30 2RF
metoprolol succinate 25 mg Tablet Extended Release 24 Hr
25 mg PO DAILY Qty: 30 2RF
furosemide [Lasix] 20 mg tablet
20 mg PO DAILY Qty: 7 0RF
Rx Instructions:
Take daily for 7 days, then stop
dapagliflozin propanediol [Farxiga] 10 mg tablet
10 mg PO DAILY Qty: 10 2RF
valsartan 40 mg tablet
20 mg PO BID Qty: 60 2RF
Continued
levothyroxine [Synthroid] 137 MCG tablet
175 mcg PO DAILY
insulin glargine [Lantus U-100 Insulin] 100 unit/mL Solution
40 unit SC HS
insulin aspart U-100 [Novolog FlexPen U-100 Insulin] 100 unit/mL (3 mL) Insulin Pen
30 - 50 unit SC .DAILYATBREAKFAST
Medical Marijuana
1 drp PO HS
multivitamin Tablet
1 tab PO DAILY
ascorbic acid (vitamin C) 500 mg Tablet
500 mg PO DAILY
cyanocobalamin (vitamin B-12) Tablet,Chewable
1 tab PO DAILY
tadalafil 10 mg Tablet
10 mg PO DAILY
testosterone 30 mg/actuation (1.5 mL) Solution In Metered Pump W/Gregg
1 pump TOPICAL DAILY
Discontinued
magnesium Tablet
1 tab PO DAILY
Prilosec OTC
20 mg PO DAILY
Discharge Orders:
Discharge Patient (As Directed); Ordered 05/25/25
Ordered By: Madhavi Palomino
Care Plan Goals
Care Plan Goals:
Problem: Readiness for enhanced knowledge related to diagnosis and treatment plan
Goal: Understand your diagnosis and treatment plan needs, including medications if applicable.
Instructions: Know your diagnosis, underlying causes and treatment plan options, including medications if applicable. Consult with your health care team to learn about your diagnosis and treatment plan, including medications if applicable.
Discharge Date and Time
Print Language: PALAUAN
--- NOTE | 2025-05-25 10:58 | W.PN.CARDCBS ---
Today's Communication / Plan
-
Discharge planning and medications discussed with CT surgery.
Impression / Plan
-
Primary Evp And Chief Operating Officer: none prior to admission
Assessment:
Presentation with epigastric pain with exertion
NSTEMI, trop 2
Multivessel coronary disease by cath including LAD and ulcerated RCA status post CABG x 3 In situ KRUSE to LAD, Ao to RSVG to PDA, Ao to RSVG to RI and LINDSEY exclusion 05/22/25
DM2
Hypothyroidism
Obesity
ROBBY
Laminectomy x2
Remote former smoker
ECHO 05/18/25: EF 37% by volumetric assessment and 47% by Alexander's, mild to moderate MR
Plan:
- Patient is status post CABG x 3 In situ KRUSE to LAD, Ao to RSVG to PDA, Ao to RSVG to RI and LINDSEY exclusion 05/22/25
-Doing well and hemodynamically stable. Out of bed to chair with family at bedside.
-Patient states he has a bit more of a cough and production this morning. Discussed with CT surgery and will reassess after ambulation with PT
-Diuresed well with IV Lasix
- Maintaining sinus rhythm. Continue Lopressor. Prophylactic amiodarone during hospitalization
- Postoperative pericarditis would likely continue for 3 months
- Continue aspirin/Plavix given presentation of non-STEMI
- LDL 177. He reports a history of significantly worsened blood sugars while on statin therapy in the past. At this point would continue statin and have him reassessed as an outpatient; possible PCSK9 inhibitor.
- Type 2 diabetes mellitus with hemoglobin A1c 7.4%. Appreciate diabetic nurse management.
- Eventual GDMT of cardiomyopathy as able. EF 37% by preop echo, 40-45% by ANKIT intraop [postop EF pressors 50-55%]: Continue metoprolol succinate 25 mg once daily. Add valsartan 40 mg daily with plan to transition to Entresto as an outpatient if
blood pressure/renal function allow. Would also add SGLT2 such as Jardiance or Farxiga 10 mg daily at time of discharge (case management consult for cost placed). Would DC on Lasix 20mg daily
-Repeat echocardiogram in 3 months
-Incentive spirometry, increase activity. Cardiac rehab.
-Will need repeat lab work in 1 week after discharge: CMP, CBC
Per CT surgery, probable discharge home later today
Plan discussed with family at bedside and CTS PA
Progress Note - Evp And Chief Operating Officer
Subjective
Date of Service: May 25, 2025
Patient seen examined sitting out of bed to chair with family. Cough with slight clear sputum. No chest pain suggestive of angina. No dizziness. Positive flatus without bowel movement.
Objective
Labs:
05/25/25 03:55
05/25/25 03:55
Labs
Hgb 12.6 g/dL (13.0-18.0) L 05/25/25 03:55
Hct 37.3 % (39.0-52.0) L 05/25/25 03:55
Plt Count 219 10^3/uL (130-400) 05/25/25 03:55
PT 18.2 Sec (11.4-14.6) H 05/22/25 15:44
INR 1.48 05/22/25 15:44
APTT 31.2 Sec (23.4-35.0) 05/22/25 15:44
Sodium 136 mmol/L (135-145) 05/25/25 03:55
Potassium 4.3 mmol/L (3.5-5.1) 05/25/25 03:55
BUN 17 mg/dl (9-20) 05/25/25 03:55
Creatinine 0.9 mg/dL (0.7-1.3) 05/25/25 03:55
Glucose 129 mg/dl (70-99) H 05/25/25 03:55
Vital Signs and I&O:
Vital Signs
Temp Pulse Resp BP Pulse Ox
97.6 F 77 16 134/55 98
05/25/25 08:29 05/25/25 10:11 05/25/25 08:29 05/25/25 10:11 05/25/25 10:11
Vital Signs
Temp Pulse Resp BP Pulse Ox
97.6 F 77 16 134/55 98
05/25/25 08:29 05/25/25 10:11 05/25/25 08:29 05/25/25 10:11 05/25/25 10:11
Intake & Output
05/23/25 05/24/25 05/25/25 05/26/25
06:59 06:59 06:59 06:59
Intake Total 692.0 / 715.5 1651.4 / 1651.4
Output Total 1505 / 1535 445 / 445 3050 / 3050 450 / 450
Balance -813.0 / -819.5 1206.4 / 1206.4 -3040 / -3040 -440 / -440
Physical Exam
Physical Exam
GEN: No distress, awake, alert, oriented x3
HEENT: mmm
LUNGS: Bronchovesicular breath sounds decreased right base but otherwise clear. No wheezes.
CV: Reg, S1/S2, no murmur. Midline incision intact
ABD: soft, BS+, NT/ND
EXT: Trace bilateral pedal edema.
NEURO: Gross non-focal
SKIN: Sternotomy incision c/d/i.
[2025-05-25] MEDS: DIOVAN 40 MG PO (11:51)
--- NOTE | 2025-05-25 11:51 | CM ---
Pricing on Farxiga and Jardiance through the patient's [employer] prescription plan, both are covered at $100 for a 30 day supply. Patient has commercial insurance and is covered at $0 with the copay card. I will place the copay card in the
patient's red discharge folder.
--- NOTE | 2025-05-25 12:49 | PTCARENOTE ---
No acute changes in assessment. Pt remains SR on the tele monitor. HR 70s. BP stable. 97% on RA. Cordis dc'd as ordered. Discharge order in. Pt and family updated.
[2025-05-25 12:55] LABS: Glucose - Point of Care 178 mg/dl (70-99)
--- NOTE | 2025-05-25 15:11 | PTCARENOTE ---
Pt showered. VSS. Discharge packet and home medications reviewed w/ family at the bedside. Questions answered. PIV dc'd. Pt transported via volunteer.
== END 2025-05-25 15:13 | disposition home or self-care (01) | DRG 233 ==
LOC: CVICU 22:09
PROVIDERS: Anesthesiology; Clinical Nurse Specialist Family Health; Emergency Medicine; Hospitalist; Internal Medicine; Internal Medicine Interventional Cardiology; Nurse Practitioner; Physician Assistant; Physician Assistant Medical; ADMITTING PHYSICIAN Hospitalist; ATTENDING PHYSICIAN Student in an Organized Health Care Education/Training Program; CONSULT PHYSICIAN Internal Medicine Critical Care Medicine; CONSULT PHYSICIAN Thoracic Surgery (Cardiothoracic Vascular Surgery); EMERGENCY PHYSICIAN Emergency Medicine; FAMILY PHYSICIAN Family Medicine; OTHER PHYSICIAN Internal Medicine Cardiovascular Disease
PROC: 4A023N7 Measurement of Cardiac Sampling and Pressure, Left Heart, Percutaneous Approach (ICD-10-PCS; 2025-05-21)
PROC: B2151ZZ Fluoroscopy of Left Heart using Low Osmolar Contrast (ICD-10-PCS; 2025-05-21)
PROC: B2111ZZ Fluoroscopy of Multiple Coronary Arteries using Low Osmolar Contrast (ICD-10-PCS; 2025-05-21)
PROC: 02L70CK Occlusion of Left Atrial Appendage with Extraluminal Device, Open Approach (ICD-10-PCS; 2025-05-22)
PROC: 06BP4ZZ Excision of Right Saphenous Vein, Percutaneous Endoscopic Approach (ICD-10-PCS; 2025-05-22)
PROC: B24BZZ4 Ultrasonography of Heart with Aorta, Transesophageal (ICD-10-PCS; 2025-05-22)
PROC: 02100Z9 Bypass Coronary Artery, One Artery from Left Internal Mammary, Open Approach (ICD-10-PCS; 2025-05-22)
PROC: 021109W Bypass Coronary Artery, Two Arteries from Aorta with Autologous Venous Tissue, Open Approach (ICD-10-PCS; 2025-05-22)
PROC: 5A1221Z Performance of Cardiac Output, Continuous (ICD-10-PCS; 2025-05-22)
DX: I21.4 Non-ST elevation (NSTEMI) myocardial infarction (principal); J95.1 Acute pulmonary insufficiency following thoracic surgery; J98.11 Atelectasis; E87.1 Hypo-osmolality and hyponatremia; I30.8 Other forms of acute pericarditis; E03.9 Hypothyroidism, unspecified; K21.9 Gastro-esophageal reflux disease without esophagitis; G47.33 Obstructive sleep apnea (adult) (pediatric); E29.1 Testicular hypofunction; T46.6X6A Underdosing of antihyperlipidemic and antiarteriosclerotic drugs, initial encounter; G89.29 Other chronic pain; E66.811 Obesity, class 1; E78.5 Hyperlipidemia, unspecified; N52.9 Male erectile dysfunction, unspecified; M51.26 Other intervertebral disc displacement, lumbar region; G47.00 Insomnia, unspecified; M65.841 Other synovitis and tenosynovitis, right hand; I11.0 Hypertensive heart disease with heart failure; I25.10 Atherosclerotic heart disease of native coronary artery without angina pectoris; E11.65 Type 2 diabetes mellitus with hyperglycemia; Y83.2 Surgical operation with anastomosis, bypass or graft as the cause of abnormal reaction of the patient, or of later complication, without mention of misadventure at the time of the procedure; E86.1 Hypovolemia; I50.9 Heart failure, unspecified; Z68.31 Body mass index [BMI] 31.0-31.9, adult; Z79.4 Long term (current) use of insulin; Z79.899 Other long term (current) drug therapy; Z87.891 Personal history of nicotine dependence; Z91.128 Patient's intentional underdosing of medication regimen for other reason
CPT/HCPCS: 36600; 71045; 71046; 71250; 80048; 80053; 80061; 81003; 81015; 82248; 82330; 82565; 82805; 82810; 82947; 82962; 83036; 83735; 84132; 84302; 84443; 84484; 84520; 85014; 85018; 85025; 85027; 85049; 85610; 85730; 86803; 86850; 86900; 86901; 86920; 93005; 93306; 93312; 93320; 93325; 93458; 93880; 93923; 93930; 94002; 96365; 96366; 97161; 99152; 99153; 99291; C1894; Q9967

== ENCOUNTER → 2025-06-20 12:13 | Outpatient (REF) | payer OTHER, SELFPAY | LOC: RAD 12:13 | PROVIDERS: ATTENDING PHYSICIAN Student in an Organized Health Care Education/Training Program | DX: Z95.1 Presence of aortocoronary bypass graft (principal) | CPT/HCPCS: 71250 ==

== ENCOUNTER 2025-06-21 05:29 | Inpatient (IN) | payer OTHER, SELFPAY ==
[2025-06-21] VITALS (12 sets, daily range): BP systolic 110–125; BP diastolic 52–79; BMI 29.8
--- NOTE | 2025-06-21 06:48 | W.CVOR.SURPR ---
CVOR Surgeon Immed Pre Op
-
I have examined this patient prior to performance of the scheduled procedure.
The patient's condition is unchanged from the time of the dictated/written History and
Physical and the patient is able to undergo the scheduled procedure.
--- NOTE | 2025-06-21 07:00 | PTCARENOTE ---
Pt admitted to CVICU at 0523. Pt clipped and prepped for CVOR procedure today. MRSA swab of wound sent per prompts/protocol. ABO drawn and sent. VS and weight obtained. Admission questions and medication reconciliation completed. at bedside.
Sternal wound redressed with sterile gauze. Pt to go to CVOR later today with Dr. Mazariegos. Report to Raj Langford RN.
--- NOTE | 2025-06-21 08:44 | CM ---
Addendum entered by Millie Joaquin 06/21/25 16:08:
Met with MrRona and MrsRona to review discharge plans. Reviewed home visit by the Transitional Care Nurse. They are agreeable to the home visit. The discharge plan is to return home with his spouse and Transitional Care Nurse when medically stable.
Addendum entered by Millie Joaquin 06/21/25 14:31:
Met with Mr. Rothman to review VNA Services. He states he does not feel he will need VNA Services. The discharge plan is to retrun home with his spouse when medically stable.
Original Note:
Reviewed chart. Met with and Mrs. Rothman to review discharge plans. He state prior to admission he resides with his spouse in a four story spilt level home with one step to enter. He states he has six steps to each level and he has a total of
twenty four steps to get to bedroom/full bathroom. He states he has a full bathroom on the third floor also. He states prior to admission he was independent with ambulation and adls. He states he has a CPAP Machine at home but currently not using
it. He states he has a prescription plan. He may need VNA Services and wound care with a VAC. He is going to the operating room today. Medial work-up in progress. The discharge plan is to return home with his spouse and VNA Services when
medically stable.
[2025-06-21 11:28] LABS: Glucose - Point of Care 140 mg/dl (70-99)
--- NOTE | 2025-06-21 12:16 | PTCARENOTE ---
Pt AAOx3, back from procedure, vital signs stable, wound vac intact, no pain at this time
--- NOTE | 2025-06-21 14:08 | W.PN.CT.SURG ---
CT Surgery Operative Note
-
Pre-op Diagnosis: S/p CABGx2 LAAL with non healing sternal wound and infection
Post-op Diagnosis: Same
Procedure: Sternal wound washout and debridement, DARIEN wound dressing placement
Primary Surgeon: Diana Mazariegos MD, MPH
Anesthesiologist: Leodan Chavez MD, Madhavi Lopez CRNA
[employer]: Niko Anders RN, and Albania Singh RN
Cultures: Sternal wound culture
Complications / Blood Loss: 10cc
Description of the Procedure: The procedure was performed under MAC without airway placement. The patient was prepped in the usual fashion from chin to bottom of abdomen. A preoperative timeout was performed with all members of the staff.
Antibiotics were given preoperatively prior to beginning procedure. The wound was already opened and I could see the intact subcuticular suture in place, which I took out as it was not serving any purpose. I would see the deep dermal suture layer in
tact with some granulation tissue trying to form so I left this in place. I took cultures with swab and probed the incision to look for any fluid collections or tunneling which was minimal. There was one area mid incision where the wound did tunnel
but there was no purulent drainage and it was in good communication with tissue above. I opted to leave this area alone and moved on to curette and freshen the edges of the wound. There was good bleeding tissue and all appeared healthy. Next we
irrigated the wound with 3 L of saline with Vancomycin using a pulsavac system. Again the tissue appeared healthy and hemostatis was confirmed. As the wound did not tunnel significantly and it was really only opened at the skin level I opted to
place a DARIEN dressing on the wound and confirmed good suction. The patient was allowed to emerge from moderate sedation. He remained hemodynamically stable throughout the procedure without tachycardia or hypotension. He was sent to recovery, awake
and in stable condition.
Diana Mazariegos MD, MPH
Cardiothoracic Surgeon
[facility]
This dictation was created using the [employer] dictation system. Please excuse any grammatical, typographical, or 'sound alike' errors.
[2025-06-21 15:03] LABS: Hematocrit 41.4 % (39.0-52.0); Hemoglobin 13.7 g/dL (13.0-18.0); Mean Corp Hgb Conc. 33.1 g/dL (33.0-37.0); Mean Corpuscular Volume 87.3 fL (80.0-94.0); Platelet Count 235 10^3/uL (130-400); Red Cell Dist. Width 14.3 % (11.5-14.5)
[2025-06-21 15:27] LABS: Blood Urea Nitrogen 21 mg/dl (9-20); Calcium 9.0 mg/dl (8.4-10.2); Carbon Dioxide 24 mmol/L (22-30); Chloride 103 mmol/L (98-107); Estimated Creatinine Clearance 105 ml/min; Glucose 223 mg/dl (70-99); Potassium 5.2 mmol/L (3.5-5.1); Sodium 136 mmol/L (135-145); eGFR > 60.00
--- NOTE | 2025-06-21 15:44 | W.DCSUMMARY ---
Discharge Summary
Discharge Data
Date of Admission: 06/21/25
Date of Discharge: 06/21/25
-
Pending Results: No
Hospital Course
Procedures:
1. Superficial sternal wound debridement and washout By Dr. Diana Mazariegos
Primary Diagnosis:
1. Superficial sternal wound dehiscence And infection with culture positive for Klebsiella
Secondary Diagnoses:
1. Recent non-STEMI/multivessel coronary artery disease status post CABG x 3 with exclusion of left atrial appendage on 05/22/25
2. Hypertension
3. Hyperlipidemia
4. Type II diabetes
5. Hypothyroidism
6. Class I obesity
7. Obstructive sleep apnea with CPAP use
8. History of laminectomy x 2
9. History of inguinal hernia repair
10. Postoperative suspected pericarditis
HPI: Patient was recently admitted for CABG with uncomplicated postoperative course where he went home on postop day 3. In the interim he has been complaining of some drainage from his sternal wound with increased pain. He was started on Keflex
in the postoperative period but his midsternal incision continued to open up. He was seen in the outpatient setting and referred for washout.
Hospital course: Patient was admitted on 06/21/2025 where he went to the operating room with Dr. Mazariegos for wound evaluation and washout. Please see full operative report for details. Wound was dressed with tyrell dressing. He was transferred to IVU
postop for pain control and subsequently discharged to home in the care of his family. He will continue to have follow-up from the transitional care nurse from [facility] and close follow-up with Dr. Mazariegos in the office.
Home medication changes: Resume all previous meds, antibiotics have been changed to cefdinir per ID recommendations for culture positive for Klebsiella.
Discharge Plan
-
Patient Disposition: Home (Routine Discharge)
Discharge Diagnosis/Procedures: superficial sternal wound dehiscence s/p washout
Condition: Good
Driving Restrictions: As prior to admission
Bathing Restrictions: please disconnect Raising IT battery box prior to shower
Referrals:
CT Transitional Care Nurse [Outside] - in one to two days
Referral Note:
The Cardiothoracic Transitional Care Nurse will call you to set up a visit in 1-2 days.
Jaspal Jimenez DO [Family Provider, [facility]]
Diana Mazariegos MD [Active, Cardiac Surgery] - 06/27/25 12:30 pm
Additional Discharge Medication Instructions: Please make sure you pickup new antibiotic script (cefdinir) that was sent from Dr. Mazariegos's office & start first dose tonight.
Prescriptions:
Continued
levothyroxine [Synthroid] 137 MCG tablet
175 mcg PO DAILY
insulin glargine [Lantus U-100 Insulin] 100 unit/mL Solution
40 unit SC HS
insulin aspart U-100 [Novolog FlexPen U-100 Insulin] 100 unit/mL (3 mL) Insulin Pen
30 - 50 unit SC .DAILYATBREAKFAST
multivitamin Tablet
1 tab PO DAILY
ascorbic acid (vitamin C) 500 mg Tablet
500 mg PO DAILY
cyanocobalamin (vitamin B-12) Tablet,Chewable
1 tab PO DAILY
tadalafil 10 mg Tablet
10 mg PO DAILY
testosterone 30 mg/actuation (1.5 mL) Solution In Metered Pump W/Gregg
1 pump TOPICAL DAILY
tramadol 50 mg Tablet
50 mg PO Q6HPRN PRN (Reason: severe pain) Qty: 15 0RF
aspirin 81 mg Tablet,Chewable
81 mg PO DAILY Qty: 0 0RF
colchicine 0.6 mg Tablet
0.6 mg PO DAILY Qty: 30 0RF
atorvastatin 80 mg Tablet
80 mg PO QPM Qty: 30 2RF
acetaminophen 325 mg Tablet
650 mg PO Q4HPRN PRN (Reason: mild pain,headache,temp >101F ) Qty: 0 0RF
clopidogrel 75 mg Tablet
75 mg PO DAILY Qty: 30 2RF
pantoprazole 40 mg Tablet,Delayed Release (Dr/Ec)
40 mg PO DAILY Qty: 30 2RF
metoprolol succinate 25 mg Tablet Extended Release 24 Hr
25 mg PO DAILY Qty: 30 2RF
dapagliflozin propanediol [Farxiga] 10 mg tablet
10 mg PO DAILY Qty: 10 2RF
valsartan 40 mg tablet
20 mg PO BID Qty: 60 2RF
Discontinued
Medical Marijuana
1 drp PO HS
gabapentin 100 mg Capsule
100 mg PO TID Qty: 30 0RF
Rx Instructions:
not taking
furosemide [Lasix] 20 mg tablet
20 mg PO DAILY Qty: 7 0RF
Rx Instructions:
Take daily for 7 days, then stop
cephalexin HCl 500 mg Tablet
500 mg PO QID
Rx Instructions:
last dose. Not taking currently
Discharge Orders:
Discharge Patient (As Directed); Ordered 06/21/25
Ordered By: Radha Valiente
Care Plan Goals
Care Plan Goals:
Problem: Readiness for enhanced knowledge related to diagnosis and treatment plan
Goal: Understand your diagnosis and treatment plan needs, including medications if applicable.
Instructions: Know your diagnosis, underlying causes and treatment plan options, including medications if applicable. Consult with your health care team to learn about your diagnosis and treatment plan, including medications if applicable.
Discharge Date and Time
Discharge Date/Time: 06/21/25 18:30
Print Language: MONTENEGRIN
[2025-06-21 16:42] LABS: Glucose - Point of Care 179 mg/dl (70-99)
[2025-06-21] MEDS: NOVOLOG FLEXPEN-MODERATE RESISTANCE 1 UNITS SC (17:08)
== END 2025-06-21 18:30 | disposition home or self-care (01) | DRG 863 ==
LOC: CVICU 05:29
PROVIDERS: ADMITTING PHYSICIAN Student in an Organized Health Care Education/Training Program; FAMILY PHYSICIAN Family Medicine
PROC: 3E10X8Z Irrigation of Skin and Mucous Membranes using Irrigating Substance (ICD-10-PCS; 2025-06-21)
DX: T81.41XA Infection following a procedure, superficial incisional surgical site, initial encounter (principal); Y83.2 Surgical operation with anastomosis, bypass or graft as the cause of abnormal reaction of the patient, or of later complication, without mention of misadventure at the time of the procedure; Y92.9 Unspecified place or not applicable; E11.9 Type 2 diabetes mellitus without complications; E03.9 Hypothyroidism, unspecified; E78.5 Hyperlipidemia, unspecified; I25.10 Atherosclerotic heart disease of native coronary artery without angina pectoris; B96.1 Klebsiella pneumoniae [K. pneumoniae] as the cause of diseases classified elsewhere; E66.811 Obesity, class 1; G47.33 Obstructive sleep apnea (adult) (pediatric); I10 Essential (primary) hypertension; Z95.1 Presence of aortocoronary bypass graft; Z79.82 Long term (current) use of aspirin; Z79.02 Long term (current) use of antithrombotics/antiplatelets; Z79.84 Long term (current) use of oral hypoglycemic drugs; Z79.890 Hormone replacement therapy; Z83.6 Family history of other diseases of the respiratory system; Z83.3 Family history of diabetes mellitus; Z80.7 Family history of other malignant neoplasms of lymphoid, hematopoietic and related tissues; Z87.891 Personal history of nicotine dependence; Z68.29 Body mass index [BMI] 29.0-29.9, adult
CPT/HCPCS: 71045; 80048; 82962; 85027; 87070; 87075; 87077; 87186; 87205

== ENCOUNTER 2025-07-11 16:42 | Outpatient (RCR) | payer OTHER, SELFPAY ==
[2025-07-06 11:22] LABS: Glucose - Point of Care 147 mg/dl (70-99)
[2025-07-06 12:16] LABS: Glucose - Point of Care 156 mg/dl (70-99)
[2025-07-09 16:10] LABS: Glucose - Point of Care 144 mg/dl (70-99)
[2025-07-09 17:01] LABS: Glucose - Point of Care 143 mg/dl (70-99)
[2025-07-11 15:57] LABS: Glucose - Point of Care 149 mg/dl (70-99)
[2025-07-11 16:53] LABS: Glucose - Point of Care 120 mg/dl (70-99)
== END 2025-07-11 23:59 | disposition home or self-care (01) ==
LOC: CRHB 16:42
PROVIDERS: Internal Medicine Cardiovascular Disease; ATTENDING PHYSICIAN Internal Medicine Cardiovascular Disease
DX: I25.10 Atherosclerotic heart disease of native coronary artery without angina pectoris (principal); Z95.1 Presence of aortocoronary bypass graft
CPT/HCPCS: 82962; 93797; 93798

== ENCOUNTER → 2025-07-17 13:26 | Outpatient (REF) | payer OTHER, SELFPAY | LOC: DHSLP 13:26 | PROVIDERS: ATTENDING PHYSICIAN Internal Medicine; FAMILY PHYSICIAN Family Medicine | DX: G47.30 Sleep apnea, unspecified (principal); R06.83 Snoring | CPT/HCPCS: 95800 ==

== ENCOUNTER 2025-08-08 16:46 | Outpatient (RCR) | payer OTHER, SELFPAY ==
[2025-07-16 16:01] LABS: Glucose - Point of Care 134 mg/dl (70-99)
[2025-07-16 16:57] LABS: Glucose - Point of Care 124 mg/dl (70-99)
[2025-07-18 11:04] LABS: Glucose - Point of Care 148 mg/dl (70-99)
[2025-07-18 12:08] LABS: Glucose - Point of Care 134 mg/dl (70-99)
[2025-07-23 11:07] LABS: Glucose - Point of Care 155 mg/dl (70-99)
[2025-07-23 12:07] LABS: Glucose - Point of Care 125 mg/dl (70-99)
== END 2025-08-08 23:59 | disposition home or self-care (01) ==
LOC: CRHB 16:46
PROVIDERS: ATTENDING PHYSICIAN Internal Medicine Cardiovascular Disease; FAMILY PHYSICIAN Family Medicine
DX: Z95.1 Presence of aortocoronary bypass graft (principal); I25.10 Atherosclerotic heart disease of native coronary artery without angina pectoris
CPT/HCPCS: 82962; 93797; 93798

== ENCOUNTER → 2025-08-14 11:35 | Outpatient (REF) | payer OTHER, SELFPAY | LOC: HWRCS 11:35 | PROVIDERS: ATTENDING PHYSICIAN Nurse Practitioner; FAMILY PHYSICIAN Family Medicine | DX: I25.10 Atherosclerotic heart disease of native coronary artery without angina pectoris (principal); I21.4 Non-ST elevation (NSTEMI) myocardial infarction | CPT/HCPCS: 93306 ==

== ENCOUNTER 2025-09-11 15:59 | Outpatient (RCR) | payer OTHER, SELFPAY ==
[2025-09-03 12:37] LABS: HDL Cholesterol 35 mg/dl
[2025-09-03 14:53] LABS: LDL Cholesterol, Direct 186 mg/dl
== END 2025-09-11 17:23 | disposition home or self-care (01) ==
LOC: CRHB 15:59
PROVIDERS: ATTENDING PHYSICIAN Internal Medicine Cardiovascular Disease; FAMILY PHYSICIAN Family Medicine; REFERRING PHYSICIAN Internal Medicine Cardiovascular Disease
DX: I25.10 Atherosclerotic heart disease of native coronary artery without angina pectoris (principal); Z95.1 Presence of aortocoronary bypass graft (principal); Z95.2 Presence of prosthetic heart valve
CPT/HCPCS: 36415; 80061; 83721; 93797; 93798